=== PATIENT | female | born 1960 | race Caucasian/White ===

== ENCOUNTER → 2016-05-24 | Outpatient (CLI) | payer OTHER ==
[~2016-05-24] MED LIST: BACT800T5 PO; CELE40TA PO; DOXY100C PO; IBUP600T26 PO; PERCOCET PO
[2016-05-24 13:57] LABS: BASO # 0.1 K/mm3 (0.0-0.2); EOS # 0.3 K/mm3 (0.0-0.50); EOS % 4.4 % (0.0-3.0); LYMPH # 2.7 K/mm3 (1.5-4.5); MEAN CORPUSCULAR HEMOGLOBIN 30.7 pg (27.0-33.0); MEAN CORPUSCULAR VOLUME 93.3 fl (80.0-96.0); MONO # 0.4 K/mm3 (0.0-0.8); MONO % 4.7 % (0.0-5.0); NEUTROPHILS % 51.1 % (36.0-66.0); RED CELL DISTRIBUTION WIDTH 11.5 % (11.5-14.5); WHITE BLOOD COUNT 7.9 K/mm3 (4.0-10.0)
[2016-05-24 14:27] LABS: ALBUMIN 3.9 GM/DL (3.2-5.2); ALBUMIN/GLOBULIN RATIO 1.34 (1.00-1.93); ALKALINE PHOSPHATASE 83 U/L (45-117); ALT/SGPT 26 U/L (12-78); ANION GAP 6 MEQ/L (8-16); AST/SGOT 20 U/L (15-37); BILIRUBIN,TOTAL 0.4 MG/DL (0.2-1.0); BLOOD UREA NITROGEN 25 MG/DL (7-18); CALCIUM LEVEL 9.2 MG/DL (8.5-10.1); CARBON DIOXIDE LEVEL 29 MEQ/L (21-32); CHLORIDE LEVEL 109 MEQ/L (98-107); CHOLESTEROL LEVEL 247 MG/DL (<200); CREATININE FOR GFR 0.61 MG/DL (0.55-1.02); GLOMERULAR FILTRATION RATE > 60.0 (>51); GLUCOSE, FASTING 108 MG/DL (70-105); POTASSIUM SERUM 4.5 MEQ/L (3.5-5.1); SODIUM LEVEL 144 MEQ/L (136-145); TOTAL PROTEIN 6.8 GM/DL (6.4-8.2); TRIGLYCERIDES LEVEL 246 MG/DL (<150)
== END ==
LOC: M LAB 13:18
PROVIDERS: ATTEND Physician Assistant Medical
DX: E78.2 Mixed hyperlipidemia (principal); F41.9 Anxiety disorder, unspecified; E55.9 Vitamin D deficiency, unspecified

== ENCOUNTER → 2016-06-29 | Outpatient (CLI) | payer OTHER ==
--- NOTE | 2016-06-30 09:54 | REPMRS ---
Patient History The patient states she had a clinical breast exam in March 2016.Patient is postmenopausal. Family history of unknown cancer in father at age 60, unknown cancer in paternal grandmother, and ovarian cancer in maternal grandmother at age 68. Benign US guided breast biopsy of the right breast, December 19, 2013. Digital Mammo Screening Bilat: June 29, 2016 - Exam #: [id number] Bilateral CC and MLO view(s) were taken. Technologist: Toya Schroeder, Technologist Prior study comparison: February 24, 2015, bilateral digital mammo screening bilat performed at [facility]. December 19, 2013, right breast digital mammo diagnostic unilateral performed at [facility]. FINDINGS: There are scattered fibroglandular densities. There has been no change in the appearance of the mammogram from the prior studies. There is a mild amount of residual fibroglandular tissue which is fairly symmetric. There is no interval development of dominant mass, architectural distortion, or clustered microcalcification suggestive of malignancy. ASSESSMENT: BI-RADS/ACR category 1 mammogram. Negative. Recommendation Routine screening mammogram in 1 year (for women over age 40). This mammogram was interpreted with the aid of an FDA-approved computer-aided dectection system. Electronically Signed By: Will Green MD 06/30/16 [id number]
== END ==
LOC: M RAD 17:11
PROVIDERS: ATTEND Physician Assistant Medical
DX: Z12.31 Encounter for screening mammogram for malignant neoplasm of breast (principal); Z78.0 Asymptomatic menopausal state

== ENCOUNTER 2016-08-13 09:15 | Emergency (ER) | payer OTHER ==
[~2016-08-13] VITALS: Ht 177.8 cm; Wt 90.3 kg
[2016-08-13 09:16] VITALS: BP 167/81
[2016-08-13] MEDS ORDERED: BUSP5TA PO (09:22)
[2016-08-13] MEDS ORDERED: ULTR50TA PO (10:24)
[2016-08-13] MEDS ORDERED: PRED20TA PO (10:24)
== END 2016-08-13 10:35 | disposition home or self-care (01) ==
LOC: M ED 10:10
DX: M54.16 Radiculopathy, lumbar region (principal); M54.31 Sciatica, right side; G43.909 Migraine, unspecified, not intractable, without status migrainosus; F17.200 Nicotine dependence, unspecified, uncomplicated; Z79.899 Other long term (current) drug therapy

== ENCOUNTER → 2016-08-25 | Outpatient (CLI) | payer OTHER ==
[~2016-08-25] MED LIST changes: +BUSP5TA PO; +PRED20TA PO; +ULTR50TA PO
[2016-08-25 13:03] LABS: BASO # 0.1 K/mm3 (0.0-0.2); BASO % 1.3 % (0.0-1.0); EOS # 0.3 K/mm3 (0.0-0.50); EOS % 4.2 % (0.0-3.0); LYMPH # 2.8 K/mm3 (1.5-4.5); LYMPH % 35.9 % (24.0-44.0); MEAN CORPUSCULAR HEMOGLOBIN 32.5 pg (27.0-33.0); MEAN CORPUSCULAR HGB CONC 34.9 g/dl (32.0-36.5); MEAN CORPUSCULAR VOLUME 93.3 fl (80.0-96.0); MONO # 0.3 K/mm3 (0.0-0.8); MONO % 4.6 % (0.0-5.0); NEUTROPHILS # 3.4 K/mm3 (1.8-7.7); NEUTROPHILS % 49.7 % (36.0-66.0); RED CELL DISTRIBUTION WIDTH 12.1 % (11.5-14.5); WHITE BLOOD COUNT 6.9 K/mm3 (4.0-10.0)
[2016-08-25 13:35] LABS: VITAMIN B12 LEVEL 470 PG/ML
[2016-08-25 13:36] LABS: FOLATE 17.3 NG/ML
[2016-08-25 13:55] LABS: ALBUMIN/GLOBULIN RATIO 1.33 (1.00-1.93); ALKALINE PHOSPHATASE 87 U/L (45-117); ALT/SGPT 28 U/L (12-78); ANION GAP 4 MEQ/L (8-16); AST/SGOT 19 U/L (15-37); BILIRUBIN,TOTAL 0.5 MG/DL (0.2-1.0); BLOOD UREA NITROGEN 26 MG/DL (7-18); CALCIUM LEVEL 9.3 MG/DL (8.5-10.1); CARBON DIOXIDE LEVEL 30 MEQ/L (21-32); CHLORIDE LEVEL 110 MEQ/L (98-107); CREATININE FOR GFR 0.68 MG/DL (0.55-1.02); FERRITIN 49 NG/ML (8-252); GLOMERULAR FILTRATION RATE > 60.0 (>51); GLUCOSE, FASTING 112 MG/DL (70-105); SODIUM LEVEL 144 MEQ/L (136-145)
[2016-08-26 11:01] LABS: ALBUMIN 4.42 GM/DL (3.29-5.55); ALBUMIN % 63.1 % (55.8-66.1); GAMMA GLOBULIN % 11.3 % (11.1-18.8)
[2016-08-27 00:07] LABS: Lyme Disease IgG/IgM Antibodie <0.91 ISR (0.00-0.90); Lyme Disease IgM Ab Quantitati <0.80 index (0.00-0.79)
== END ==
LOC: M RAD 10:36 → M LAB 10:36
PROVIDERS: ATTEND Physician Assistant Medical
DX: R42 Dizziness and giddiness (principal); M62.81 Muscle weakness (generalized)

== ENCOUNTER 2016-10-06 09:20 | Emergency (ER) | payer OTHER ==
[~2016-10-06] VITALS: Ht 177.8 cm; Wt 93.3 kg
[2016-10-06 09:20] VITALS: BP 122/71
[~2016-10-06 09:20] MED LIST changes: +IBUP-1022 PO; -IBUP600T26 PO; -ULTR50TA PO; +ULTR50TA8 PO
[2016-10-06] MEDS ORDERED: TRAM50TA2 PO (09:58)
[2016-10-06] MEDS ORDERED: traMADol 50 MG TAB PO ONE (10:00)
== END 2016-10-06 10:17 | disposition home or self-care (01) ==
LOC: M ED 09:20
DX: G89.29 Other chronic pain (principal); F32.9 Major depressive disorder, single episode, unspecified; F41.9 Anxiety disorder, unspecified; F17.200 Nicotine dependence, unspecified, uncomplicated; Z79.899 Other long term (current) drug therapy

== ENCOUNTER 2016-12-27 10:27 | Emergency (ER) | payer OTHER ==
[~2016-12-27] VITALS: Ht 177.8 cm; Wt 93.2 kg
[~2016-12-27 10:27] MED LIST changes: +TRAM50TA2 PO
[2016-12-27] MEDS ORDERED: GABA-282 (10:32)
[2016-12-27] MEDS ORDERED: AMIT25TA (10:32)
[2016-12-27] MEDS ORDERED: MELO15TA4 (10:32)
[2016-12-27] MEDS ORDERED: TRAM50TA2 PO (12:07)
[2016-12-27] MEDS ORDERED: traMADol 50 MG TAB PO ONE (12:15)
[2016-12-27] MEDS ORDERED: CYCLOBENZAPRINE 10 MG TAB PO ONE (12:15)
[2016-12-27 12:48] VITALS: BP 148/87
== END 2016-12-27 12:38 | disposition home or self-care (01) ==
LOC: M ED 10:27
DX: M54.31 Sciatica, right side (principal); M54.32 Sciatica, left side; G43.909 Migraine, unspecified, not intractable, without status migrainosus; E78.5 Hyperlipidemia, unspecified; D41.9 Neoplasm of uncertain behavior of unspecified urinary organ; D32.9 Benign neoplasm of meninges, unspecified; F17.200 Nicotine dependence, unspecified, uncomplicated; Z79.899 Other long term (current) drug therapy

== ENCOUNTER → 2017-02-01 | Outpatient (CLI) | payer OTHER ==
[~2017-02-01] MED LIST changes: +AMIT25TA; +GABA-282; +GASTROGRAFIN SOLUTION 30ML (Q9963) As Ordered ONE; +ISOVUE-370 76% 100ML VIAL (Q9967) As Ordered ONE; +MELO15TA4
--- NOTE | 2017-02-01 16:39 | REP ---
Clinical: Generalized abdominal pain. Comparison: 08/18/2015. Technique: Axial contrast enhanced images from the lung bases to the pubic symphysis using oral (per protocol) and 100 ml Isovue 370 intravenous contrast material with coronal and sagittal re-formations. Comparison: 08/18/2015. Findings: Lung bases demonstrate minimal right basilar fibroatelectatic and dependent changes. Liver, spleen, pancreas, gallbladder, bilateral adrenal glands and kidneys are normal. Prominent soft tissue at the gastroesophageal junction extending into the cardia of the stomach is nonspecific. The enteric system is without obstruction or acute inflammatory process. Scattered sigmoid diverticula noted without acute diverticulitis. Normal terminal ileum and appendix identified in the right lower quadrant. Pelvis demonstrates normal bladder and age-appropriate uterus/adnexa. No pelvic fluid or ascites. No adenopathy. No obvious solitary mass lesion. Atherosclerotic changes of the aorta and vasculature without aneurysm. Surrounding musculoskeletal structures demonstrate advanced degenerative changes at the L4-5 and L5-L1 levels with chronic bilateral spondylolysis and hypertrophic facet changes as well as grade 1 anterolisthesis at L4-5 and grade 1 retrolisthesis at L5-S1. Impression: 1. Mildly prominent soft tissue at the gastroesophageal junction extending into the cardia of the stomach. Endoscopy may be warranted for further investigation. 2. Colonic diverticula without acute diverticulitis. 3. Advanced degenerative changes of the lower lumbar spine. 4. No further acute abdominopelvic pathology appreciated. Signed by Clark Flaherty MD 02/01/2017 04:30 P
--- NOTE | 2017-02-02 08:42 | REP ---
MR LUMBAR SPINE WITHOUT CONTRAST: HISTORY: Back pain. Decreased signal intensity on T2-weighted images is present in the T11-12, T12-L1 and L3-4 through L5-S1 intervertebral discs. The discs are decreased in height. These findings are consistent with disc degeneration. There is no disc bulge or herniation at the L1-2 and L2-3 levels. There is hypertrophy of the posterior articulating facets. The nerves exit the neural foramina without compression. A diffuse disc bulge is present at the L3-4 level. There is hypertrophy of the ligamenta flava and posterior articulating facets. These findings produce minimal central canal stenosis. The L3 nerves exit the neural foramina without compression. A diffuse disc bulge is present at the L4-5 level. There is hypertrophy at the ligamenta flava and posterior articulating facets. There are 7 mm of grade 1 spondylolisthesis of L4 on 5. These findings produce severe central canal stenosis. A small right intraforaminal disc protrusion is present. There is posterolateral displacement of the right L4 nerve distal to the neural foramen. The left L4 nerve exits the neural foramen without compression. A diffuse disc bulge is present at the L5-S1 level. There is minimal compression of the thecal sac. There is hypertrophy of the ligamenta flava and posterior articulating facets. There is compression over the left L5 nerve in the neural foramen. The right L5 nerve exits the neural foramen without compression. The conus medullaris is normal in appearance terminating at the level of the L1-2 intervertebral disc. Tarlov cysts are present at the S2 and S3 levels. Normal signal intensity is present in the lumbar vertebral bodies. IMPRESSION: 1. Minimal central canal stenosis at the L3-4 level secondary to disc bulge, ligamentous and facet hypertrophy. 2. Severe central canal stenosis at the L4-5 level secondary to disc bulge, ligamentous and facet hypertrophy and grade 1 spondylolisthesis. 3. Diffuse disc bulge at the L5-S1 level with minimal thecal sac compression. There is compression of the left L5 nerve in the neural foramen. Signed by Narendra Bourgeois MD 02/02/2017 09:10 A
== END ==
LOC: M RAD 13:12
PROVIDERS: ATTEND Physician Assistant Medical
DX: M51.26 Other intervertebral disc displacement, lumbar region (principal); M48.061 Spinal stenosis, lumbar region without neurogenic claudication; R10.84 Generalized abdominal pain; M62.81 Muscle weakness (generalized)
CPT/HCPCS: 72148; 74177; Q9963; Q9967

== ENCOUNTER → 2017-02-14 | Outpatient (CLI) | payer OTHER ==
[~2017-02-14] MED LIST changes: -GASTROGRAFIN SOLUTION 30ML (Q9963) As Ordered ONE; -ISOVUE-370 76% 100ML VIAL (Q9967) As Ordered ONE
[2017-02-14 10:57] LABS: BASO # 0.1 10^3/uL (0.0-0.2); BASO % 1.2 % (0.0-1.0); EOS # 0.4 10^3/uL (0.0-0.50); EOS % 5.9 % (0.0-3.0); IMMATURE GRANULOCYTE % 0.3 % (0-0); LYMPH # 2.3 10^3/uL (1.5-4.5); LYMPH % 31.6 % (24.0-44.0); MEAN CORPUSCULAR HEMOGLOBIN 31.2 pg (27.0-33.0); MONO # 0.6 10^3/uL (0.0-0.8); MONO % 8.3 % (0.0-5.0); NEUTROPHILS # 3.8 10^3/uL (1.8-7.7); NEUTROPHILS % 52.7 % (36.0-66.0); PLATELET COUNT, AUTOMATED 323 10^3/uL (150-450); RED CELL DISTRIBUTION WIDTH 12.1 % (11.5-14.5); WHITE BLOOD COUNT 7.3 10^3/uL (4.0-10.0)
[2017-02-14 11:35] LABS: ALBUMIN 3.9 GM/DL (3.2-5.2); ALBUMIN/GLOBULIN RATIO 1.26 (1.00-1.93); ALKALINE PHOSPHATASE 106 U/L (45-117); ALT/SGPT 21 U/L (12-78); ANION GAP 7 MEQ/L (8-16); AST/SGOT 16 U/L (7-37); BILIRUBIN,TOTAL 0.6 MG/DL (0.2-1.0); BLOOD UREA NITROGEN 25 MG/DL (7-18); CALCIUM LEVEL 9.2 MG/DL (8.5-10.1); CARBON DIOXIDE LEVEL 25 MEQ/L (21-32); CHLORIDE LEVEL 113 MEQ/L (98-107); CHOLESTEROL LEVEL 261 MG/DL (<200); CREATININE FOR GFR 0.67 MG/DL (0.55-1.02); GLOMERULAR FILTRATION RATE > 60.0 (>51); GLUCOSE, FASTING 83 MG/DL (70-105); POTASSIUM SERUM 3.7 MEQ/L (3.5-5.1); SODIUM LEVEL 145 MEQ/L (136-145); TRIGLYCERIDES LEVEL 99 MG/DL (<150)
[2017-02-14 11:42] LABS: FOLATE 12.1 NG/ML; VITAMIN B12 LEVEL 346 PG/ML
== END ==
LOC: M LAB 10:27
PROVIDERS: ATTEND Physician Assistant Medical
DX: E78.2 Mixed hyperlipidemia (principal); E55.9 Vitamin D deficiency, unspecified; M62.81 Muscle weakness (generalized); G43.709 Chronic migraine without aura, not intractable, without status migrainosus

== ENCOUNTER 2017-04-24 05:44 | Emergency (ER) | payer OTHER ==
[2017-04-24] MEDS ORDERED: ONDANSETRON 4MG/2ML VIAL (J2405) As Ordered (06:28)
[2017-04-24] MEDS: ONDANSETRON 4MG/2ML VIAL (J2405) IV (06:35)
[2017-04-24 06:37] LABS: BASO # 0.1 10^3/uL (0.0-0.2); BASO % 1.1 % (0.0-1.0); EOS # 0.4 10^3/uL (0.0-0.50); EOS % 4.3 % (0.0-3.0); HEMATOCRIT 42.9 % (36.0-47.0); HEMOGLOBIN 14.1 g/dl (12.0-16.0); IMMATURE GRANULOCYTE % 0.5 % (0-3.0); LYMPH % 31.8 % (24.0-44.0); MEAN CORPUSCULAR HEMOGLOBIN 30.8 pg (27.0-33.0); MEAN CORPUSCULAR HGB CONC 32.9 g/dl (32.0-36.5); MEAN CORPUSCULAR VOLUME 93.7 fl (80.0-96.0); MONO # 0.7 10^3/uL (0.0-0.8); MONO % 7.7 % (0.0-5.0); NEUTROPHILS # 5.1 10^3/uL (1.8-7.7); NEUTROPHILS % 54.6 % (36.0-66.0); PLATELET COUNT, AUTOMATED 320 10^3/uL (150-450); RED BLOOD COUNT 4.58 10^6/uL (4.00-5.40); RED CELL DISTRIBUTION WIDTH 11.9 % (11.5-14.5); WHITE BLOOD COUNT 9.4 10^3/uL (4.0-10.0)
[2017-04-24 06:52] LABS: ANION GAP 8 MEQ/L (8-16); BLOOD UREA NITROGEN 18 MG/DL (7-18); CALCIUM LEVEL 8.8 MG/DL (8.5-10.1); CARBON DIOXIDE LEVEL 29 MEQ/L (21-32); CHLORIDE LEVEL 107 MEQ/L (98-107); CK-MB VALUE MASS 1.9 NG/ML (0.0-3.6); CPK CREATINE PHOSPHOKINASE 53 U/L (26-192); CREATININE FOR GFR 0.64 MG/DL (0.55-1.30); GLOMERULAR FILTRATION RATE > 60.0 (>51); GLUCOSE, FASTING 110 MG/DL (70-100); MB/CK RELATIVE INDEX 3.58 (< OR =4); POTASSIUM SERUM 3.4 MEQ/L (3.5-5.1); SODIUM LEVEL 144 MEQ/L (136-145); TROPONIN I 0.04 NG/ML (< 0.10)
[2017-04-24] MEDS: METHOCARBAMOL 1,000 MG/10 ML VIAL (J2800) IV (08:33)
[2017-04-24] MEDS: PANTOPRAZOLE 40MG INJ (PROTONIX) (C9113) IV (08:33)
[2017-04-24 08:39] LABS: ALBUMIN 3.8 GM/DL (3.2-5.2); ALBUMIN/GLOBULIN RATIO 1.12 (1.00-1.93); ALKALINE PHOSPHATASE 88 U/L (45-117); ALT/SGPT 26 U/L (12-78); AST/SGOT 16 U/L (7-37); BILIRUBIN,DIRECT 0.1 MG/DL (0.0-0.2); BILIRUBIN,TOTAL 0.5 MG/DL (0.2-1.0); LIPASE 266 U/L (73-393); TOTAL PROTEIN 7.2 GM/DL (6.4-8.2)
== END 2017-04-24 10:05 | disposition home or self-care (01) ==
LOC: M ED 05:44
DX: M51.26 Other intervertebral disc displacement, lumbar region (principal); G89.29 Other chronic pain; R19.09 Other intra-abdominal and pelvic swelling, mass and lump; E78.00 Pure hypercholesterolemia, unspecified; F41.9 Anxiety disorder, unspecified; F17.210 Nicotine dependence, cigarettes, uncomplicated; Z79.899 Other long term (current) drug therapy
CPT/HCPCS: C9113

== ENCOUNTER → 2017-05-05 | Outpatient (CLI) | payer OTHER ==
[2017-05-05 17:07] LABS: BASO # 0.1 10^3/uL (0.0-0.2); BASO % 1.8 % (0.0-1.0); EOS # 0.3 10^3/uL (0.0-0.50); EOS % 3.5 % (0.0-3.0); HEMATOCRIT 39.6 % (36.0-47.0); HEMOGLOBIN 13.2 g/dl (12.0-16.0); IMMATURE GRANULOCYTE % 0.7 % (0-3.0); LYMPH # 3.1 10^3/uL (1.5-4.5); LYMPH % 41.5 % (24.0-44.0); MEAN CORPUSCULAR HEMOGLOBIN 30.6 pg (27.0-33.0); MEAN CORPUSCULAR HGB CONC 33.3 g/dl (32.0-36.5); MEAN CORPUSCULAR VOLUME 91.9 fl (80.0-96.0); MONO # 0.7 10^3/uL (0.0-0.8); MONO % 9.5 % (0.0-5.0); NEUTROPHILS # 3.2 10^3/uL (1.8-7.7); PLATELET COUNT, AUTOMATED 336 10^3/uL (150-450); RED BLOOD COUNT 4.31 10^6/uL (4.00-5.40); RED CELL DISTRIBUTION WIDTH 11.9 % (11.5-14.5); WHITE BLOOD COUNT 7.4 10^3/uL (4.0-10.0)
[2017-05-05 17:56] LABS: ALBUMIN/GLOBULIN RATIO 1.54 (1.00-1.93); ALKALINE PHOSPHATASE 82 U/L (45-117); ALT/SGPT 23 U/L (12-78); ANION GAP 5 MEQ/L (8-16); AST/SGOT 17 U/L (7-37); BILIRUBIN,TOTAL 0.5 MG/DL (0.2-1.0); BLOOD UREA NITROGEN 24 MG/DL (7-18); C REACTIVE PROTEIN QUANTITATIV < 0.30 MG/DL (0.00-0.30); CALCIUM LEVEL 8.5 MG/DL (8.5-10.1); CARBON DIOXIDE LEVEL 27 MEQ/L (21-32); CHLORIDE LEVEL 111 MEQ/L (98-107); CREATININE FOR GFR 0.68 MG/DL (0.55-1.30); GLOMERULAR FILTRATION RATE > 60.0 (>51); GLUCOSE, FASTING 76 MG/DL (70-100); POTASSIUM SERUM 3.7 MEQ/L (3.5-5.1); RHEUMATOID FACTOR QUANT < 10.0 IU/ML (0-15.0); SODIUM LEVEL 143 MEQ/L (136-145); TOTAL PROTEIN 6.6 GM/DL (6.4-8.2)
[2017-05-05 17:58] LABS: ERYTHROCYTE SEDIMENTATION RATE 6 mm/hr (0-30)
[2017-05-09 00:07] LABS: CYCLIC CITRULLINATED PEPTIDE 3 units (0-19)
[2017-05-09 00:07] LABS: ANA (HEP2) Positive (.); Lyme Disease IgG/IgM Antibodie <0.91 ISR (0.00-0.90); Lyme Disease IgM Ab Quantitati <0.80 index (0.00-0.79); SSA SJOGRENS A <0.2 AI (0.0-0.9); SSB SJOGRENS B <0.2 AI (0.0-0.9)
== END ==
LOC: M LAB 15:53
DX: Z79.899 Other long term (current) drug therapy (principal); M35.09 Sjogren syndrome with other organ involvement; M53.83 Other specified dorsopathies, cervicothoracic region
CPT/HCPCS: 73130

== ENCOUNTER → 2017-05-24 | Outpatient (CLI) | payer OTHER ==
[2017-05-24 14:47] LABS: APPEARANCE, URINE HAZY (CLEAR); BACTERIA, URINE AUTO NEGATIVE (NEGATIVE); BILIRUBIN, URINE AUTO 2+ (NEGATIVE); BLOOD, URINE BLOOD NEGATIVE (NEGATIVE); COLOR, URINE AMBER (YELLOW); GLUCOSE, URINE (UA) AUTO NEGATIVE (NEGATIVE); KETONE, URINE AUTO TRACE mg/dL (NEGATIVE); LEUKOCYTE ESTERASE, URINE AUTO 1+ (NEGATIVE); MUCUS, URINE LARGE (NEGATIVE); NITRITE, URINE AUTO NEGATIVE (NEGATIVE); PROTEIN, URINE AUTO 1+ mg/dL (NEGATIVE); RBC, URINE AUTO 3 /HPF (0-3); SPECIFIC GRAVITY URINE AUTO 1.034 (1.002-1.035); SQUAMOUS EPITHELIAL CELL UR AU 3 /HPF (0-6); WBC, URINE AUTO 4 /HPF (0-3)
[2017-05-24 14:59] LABS: COMPLEMENT C4 24.9 MG/DL (10-40)
[2017-05-24 14:59] LABS: COMPLEMENT C3 120 MG/DL (90-180)
== END ==
LOC: M LAB 13:48
DX: M35.9 Systemic involvement of connective tissue, unspecified (principal); Z79.899 Other long term (current) drug therapy
CPT/HCPCS: 86255

== ENCOUNTER 2017-06-26 10:46 | Emergency (ER) | payer OTHER | END 2017-06-26 11:53 | disposition home or self-care (01) | LOC: M ED 10:46 | DX: M54.32 Sciatica, left side (principal); F33.9 Major depressive disorder, recurrent, unspecified; F41.9 Anxiety disorder, unspecified; F17.200 Nicotine dependence, unspecified, uncomplicated; Z87.39 Personal history of other diseases of the musculoskeletal system and connective tissue; Z86.69 Personal history of other diseases of the nervous system and sense organs; Z79.899 Other long term (current) drug therapy | CPT/HCPCS: 99282 ==

== ENCOUNTER 2017-06-29 07:51 | Emergency (ER) | payer OTHER ==
[2017-06-29] MEDS: PERCOCET 5MG/325MG TAB PO (08:50)
== END 2017-06-29 08:59 | disposition home or self-care (01) ==
LOC: M ED 07:51
DX: M54.32 Sciatica, left side (principal); G89.29 Other chronic pain; M54.9 Dorsalgia, unspecified; G43.909 Migraine, unspecified, not intractable, without status migrainosus; K21.9 Gastro-esophageal reflux disease without esophagitis; F41.9 Anxiety disorder, unspecified; F32.9 Major depressive disorder, single episode, unspecified; F17.200 Nicotine dependence, unspecified, uncomplicated; Z79.82 Long term (current) use of aspirin
CPT/HCPCS: 99283

== ENCOUNTER 2017-07-04 07:56 | Emergency (ER) | payer OTHER ==
[2017-07-04] MEDS: traMADol 50 MG TAB PO (09:30)
[2017-07-04] MEDS: ACETAMINOPHEN TAB 650MG DOSE (2X325MG) PO (09:39)
== END 2017-07-04 10:33 | disposition home or self-care (01) ==
LOC: M ED 07:56
DX: M54.42 Lumbago with sciatica, left side (principal); S29.011A Strain of muscle and tendon of front wall of thorax, initial encounter; X58.XXXA Exposure to other specified factors, initial encounter; Y92.89 Other specified places as the place of occurrence of the external cause; M51.9 Unspecified thoracic, thoracolumbar and lumbosacral intervertebral disc disorder; F17.200 Nicotine dependence, unspecified, uncomplicated; Z79.899 Other long term (current) drug therapy
CPT/HCPCS: 99283

== ENCOUNTER 2017-07-18 12:49 | Emergency (ER) | payer OTHER ==
[2017-07-18] MEDS: LORazepam 2 MG/ML VIAL (J2060) IM (14:32)
[2017-07-18] MEDS: KETOROLAC 60 MG/2 ML VIAL (J1885) IM (14:32)
[2017-07-18 15:10] LABS: KETONE, URINE AUTO RFX NEGATIVE (NEGATIVE); LEUKOCYTE ESTERASE UR AUTO RFX 3+ (NEGATIVE); MUCUS, URINE RFX LARGE (NEGATIVE); NITRITE, URINE AUTO RFX POSITIVE (NEGATIVE); RBC, URINE AUTO RFX 64 /HPF (0-3); SPECIFIC GRAVITY UR AUTO RFX 1.027 (1.002-1.035); SQUAM EPITHELIAL CELL UR AURFX 1 /HPF (0-6); WBC, URINE AUTO RFX TNTC /HPF (0-3)
== END 2017-07-18 16:03 | disposition home or self-care (01) ==
LOC: M ED 12:49
DX: M54.32 Sciatica, left side (principal); N39.0 Urinary tract infection, site not specified; G89.29 Other chronic pain; Z79.899 Other long term (current) drug therapy; F17.210 Nicotine dependence, cigarettes, uncomplicated
CPT/HCPCS: J1885

== ENCOUNTER → 2017-07-28 | Outpatient (CLI) | payer OTHER ==
[2017-07-28 10:52] LABS: BASO # 0.2 10^3/uL (0.0-0.2); BASO % 1.5 % (0.0-1.0); EOS # 1.2 10^3/uL (0.0-0.50); EOS % 10.6 % (0.0-3.0); HEMATOCRIT 44.1 % (36.0-47.0); IMMATURE GRANULOCYTE % 0.4 % (0-3.0); LYMPH # 2.8 10^3/uL (1.5-4.5); LYMPH % 25.5 % (24.0-44.0); MEAN CORPUSCULAR HEMOGLOBIN 30.8 pg (27.0-33.0); MEAN CORPUSCULAR VOLUME 90.6 fl (80.0-96.0); MONO # 0.9 10^3/uL (0.0-0.8); MONO % 7.8 % (0.0-5.0); NEUTROPHILS # 5.9 10^3/uL (1.8-7.7); NEUTROPHILS % 54.2 % (36.0-66.0); PLATELET COUNT, AUTOMATED 531 10^3/uL (150-450); RED BLOOD COUNT 4.87 10^6/uL (4.00-5.40); RED CELL DISTRIBUTION WIDTH 12.3 % (11.5-14.5); WHITE BLOOD COUNT 10.9 10^3/uL (4.0-10.0)
[2017-07-28 11:05] LABS: INR 0.92; PROTHROMBIN TIME 12.4 SECONDS (12.4-14.5)
[2017-07-28 11:06] LABS: PARTIAL THROMBOPLASTIN TIME 25.2 SECONDS (26.8-37.9)
[2017-07-28 11:21] LABS: ALBUMIN 3.9 GM/DL (3.2-5.2); ALBUMIN/GLOBULIN RATIO 1.08 (1.00-1.93); ALKALINE PHOSPHATASE 238 U/L (45-117); ALT/SGPT 19 U/L (12-78); ANION GAP 10 MEQ/L (8-16); AST/SGOT 15 U/L (7-37); BILIRUBIN,TOTAL 0.8 MG/DL (0.2-1.0); BLOOD UREA NITROGEN 24 MG/DL (7-18); CALCIUM LEVEL 9.6 MG/DL (8.5-10.1); CARBON DIOXIDE LEVEL 25 MEQ/L (21-32); CHLORIDE LEVEL 109 MEQ/L (98-107); CREATININE FOR GFR 0.81 MG/DL (0.55-1.30); GLOMERULAR FILTRATION RATE > 60.0 (>51); GLUCOSE, FASTING 99 MG/DL (70-100); POTASSIUM SERUM 3.2 MEQ/L (3.5-5.1); SODIUM LEVEL 144 MEQ/L (136-145); TOTAL PROTEIN 7.5 GM/DL (6.4-8.2)
[2017-07-28 11:26] LABS: COLLAGEN EPINEPHRINE > 300.0 SECONDS (74-162)
== END ==
LOC: M LAB 09:54
DX: Z01.818 Encounter for other preprocedural examination (principal); R00.0 Tachycardia, unspecified
CPT/HCPCS: 71046

== ENCOUNTER 2017-08-07 09:55 | Emergency (ER) | payer OTHER ==
[2017-08-07] MEDS: BACLOFEN 10 MG TAB PO (10:41)
[2017-08-07] MEDS: KETOROLAC 60 MG/2 ML VIAL (J1885) IM (10:41)
== END 2017-08-07 11:03 | disposition home or self-care (01) ==
LOC: M ED 09:55
DX: M54.32 Sciatica, left side (principal); I10 Essential (primary) hypertension; E78.5 Hyperlipidemia, unspecified; K21.9 Gastro-esophageal reflux disease without esophagitis; G43.909 Migraine, unspecified, not intractable, without status migrainosus; F41.9 Anxiety disorder, unspecified; F32.9 Major depressive disorder, single episode, unspecified; Z72.0 Tobacco use; F12.10 Cannabis abuse, uncomplicated; Z79.899 Other long term (current) drug therapy
CPT/HCPCS: J1885

== ENCOUNTER 2017-08-22 09:41 | Emergency (ER) | payer OTHER ==
[2017-08-22] MEDS: BACLOFEN 10 MG TAB PO (10:46)
[2017-08-22] MEDS: methylPREDNISolone INJ 125 MG/2 ML VIAL (J2930) IM (10:47)
[2017-08-22] MEDS: MORPHINE 10 MG/ML 1ML VIAL (J2270) IM (10:49)
== END 2017-08-22 11:46 | disposition home or self-care (01) ==
LOC: M ED 09:41
DX: M54.41 Lumbago with sciatica, right side (principal); I10 Essential (primary) hypertension; Z72.0 Tobacco use; Z79.899 Other long term (current) drug therapy
CPT/HCPCS: J2930

== ENCOUNTER 2017-08-24 23:36 | Inpatient (IN) | payer OTHER, MEDICAID ==
[2017-08-25 00:50] LABS: AMPHETAMINES LEVEL URINE NEGATIVE (NEGATIVE); BARBITURATES URINE NEGATIVE (NEGATIVE); BENZODIAZEPINES URINE NEGATIVE (NEGATIVE); CANNABINOIDS URINE POSITIVE (NEGATIVE); COCAINE METABOLITE URINE NEGATIVE (NEGATIVE); METHADONE URINE NEGATIVE (NEGATIVE); OPIATES URINE POSITIVE (NEGATIVE); PHENCYCLIDINE URINE NEGATIVE (NEGATIVE)
[2017-08-25 01:08] LABS: ABG BASE EXCESS -2.4 (-2.0-2.0); ABG HCO3 19.6 MEQ/L (22.0-26.0); ABG O2 SATURATION 96.8 % (95.0-99.0); ABG PARTIAL PRESSURE CO2 26.8 mmHg (35.0-45.0); ABG PARTIAL PRESSURE O2 83.1 mmHg (75.0-100.0); ABG STANDARD HCO3 22.5 MEQ/L (22.0-26.0); ABG TOTAL CO2 20.5 MEQ/L (22.0-29.0); ABG pH (ARTERIAL) 7.483 UNITS (7.350-7.450)
[2017-08-25 01:15] LABS: BEDSIDE GLUCOSE 153 MG/DL (70-105)
[2017-08-25 01:27] LABS: HEMATOCRIT 35.7 % (36.0-47.0); MEAN CORPUSCULAR HEMOGLOBIN 30.9 pg (27.0-33.0); MEAN CORPUSCULAR HGB CONC 35.9 g/dl (32.0-36.5); MEAN CORPUSCULAR VOLUME 86.2 fl (80.0-96.0); PLATELET COUNT, AUTOMATED 156 10^3/uL (150-450); RED BLOOD COUNT 4.14 10^6/uL (4.00-5.40); RED CELL DISTRIBUTION WIDTH 12.4 % (11.5-14.5); WHITE BLOOD COUNT 14.4 10^3/uL (4.0-10.0)
[2017-08-25 01:29] LABS: ADD MANUAL DIFFER YES; DIFF SLIDE NUMBER 100; HEMOGLOBIN 12.8 g/dl (12.0-15.5); POS COUNT POS FLAG; POSITIVE MORPH POS FLAG
[2017-08-25 01:44] LABS: ALBUMIN 2.5 GM/DL (3.2-5.2); ALBUMIN/GLOBULIN RATIO 0.76 (1.00-1.93); ALKALINE PHOSPHATASE 199 U/L (45-117); ALT/SGPT 42 U/L (12-78); ANION GAP 14 MEQ/L (8-16); AST/SGOT 41 U/L (7-37); BILIRUBIN,DIRECT 0.2 MG/DL (0.0-0.2); BILIRUBIN,TOTAL 1.2 MG/DL (0.2-1.0); BLOOD UREA NITROGEN 35 MG/DL (7-18); CALCIUM LEVEL 8.8 MG/DL (8.5-10.1); CARBON DIOXIDE LEVEL 23 MEQ/L (21-32); CHLORIDE LEVEL 106 MEQ/L (98-107); CPK CREATINE PHOSPHOKINASE 173 U/L (26-192); ETHYL ALCOHOL (ETHANOL) 0.003 % (0.000-0.010); FREE THYROXINE INDEX 2.8 % (1.3-4.8); GLOMERULAR FILTRATION RATE > 60.0 (>51); GLUCOSE, FASTING 107 MG/DL (70-100); POTASSIUM SERUM 3.4 MEQ/L (3.5-5.1); SODIUM LEVEL 143 MEQ/L (136-145); T UPTAKE 37 % (30-39); THYROID STIMULATING HORMONE 0.353 uIU/ML (0.358-3.740); THYROXINE (T4) 7.5 UG/DL (4.5-12.0); TOTAL PROTEIN 5.8 GM/DL (6.4-8.2)
[2017-08-25] MEDS: NS 1,000 ML IV ×3 (01:45→13:47)
[2017-08-25 01:49] LABS: AMMONIA 12 uMOL/L (<32)
[2017-08-25 01:54] LABS: BANDS 4 % (< 11); LYMPHOCYTES 3 % (16-52); MONOCYTES 3 % (0-8); NEUTROPHILS 90 % (35-75); PLATELET CLUMPS SMALL AMT; PLATELET ESTIMATE NORMAL (NORMAL); TOXIC GRANULATION 1+; TOXIC VACUOLATION 1+
[2017-08-25 01:55] LABS: SMUDGE CELLS 1+
[2017-08-25 02:16] LABS: APPEARANCE, URINE CLOUDY (CLEAR); BACTERIA, URINE AUTO NEGATIVE (NEGATIVE); BILIRUBIN, URINE AUTO 1+ (NEGATIVE); BLOOD, URINE BLOOD 1+ (NEGATIVE); COLOR, URINE AMBER (YELLOW); GLUCOSE, URINE (UA) AUTO NEGATIVE (NEGATIVE); KETONE, URINE AUTO NEGATIVE (NEGATIVE); LEUKOCYTE ESTERASE, URINE AUTO NEGATIVE (NEGATIVE); MUCUS, URINE SMALL (NEGATIVE); NITRITE, URINE AUTO NEGATIVE (NEGATIVE); PROTEIN, URINE AUTO 2+ mg/dL (NEGATIVE); RBC, URINE AUTO 1 /HPF (0-3); SPECIFIC GRAVITY URINE AUTO 1.028 (1.002-1.035); SQUAMOUS EPITHELIAL CELL UR AU 0 /HPF (0-6); TRANSITIONAL EPITHELIAL AUTO 1 /HPF; WBC, URINE AUTO 28 /HPF (0-3)
[2017-08-25] MEDS ORDERED: PROPOFOL 200 MG/20 ML VIAL As Ordered (02:42)
[2017-08-25] MEDS: SODIUM CHLORIDE 0.9% 1000 ML IV (02:45)
[2017-08-25] MEDS: CEFEPIME HCL 2 GM in D5W MINI-BAG PLUS 50 ML IV ×2 (03:00→14:37)
[2017-08-25 03:03] LABS: MAGNESIUM LEVEL 2.1 MG/DL (1.8-2.4); PHOSPHORUS LEVEL 2.7 MG/DL (2.5-4.9)
[2017-08-25] MEDS ORDERED: VANCOMYCIN 1000 MG/20 ML VIAL (J3370) As Ordered (03:03)
[2017-08-25] MEDS ORDERED: cefTRIAXone SOD 1 GM VIAL (J0696) As Ordered (03:04)
[2017-08-25] MEDS: dexameTHASONE 20 MG/5 ML VIAL (J1100) IV ×3 (03:15→20:31)
[2017-08-25] MEDS ORDERED: cefTRIAXone SOD 2 GM in D5W MINI-BAG PLUS 50 ML IV (03:15)
[2017-08-25] MEDS: PROPOFOL 200 MG/20 ML VIAL IV (03:15)
[2017-08-25] MEDS ORDERED: ACETAMINOPHEN 650 MG SUPP As Ordered (03:28)
[2017-08-25 03:32] LABS: COLOR, CSF YELLOW (COLORLESS); CSF MONONUCLEAR CELL % 5.9 % (0-0); CSF POLYMORPHONUCLEAR CELL % 94.1 % (0-0); CSF RBC 4 10^3/uL (<2); CSF TUBE# CELL CNT TUBE 1; CSF WBC 256 /uL (0-10)
[2017-08-25 03:33] LABS: APPEARANCE, CSF HAZY (CLEAR); CSF DIFF IF INDICATED? YES (NO)
[2017-08-25] MEDS: ACETAMINOPHEN 650 MG SUPP PR (03:45)
[2017-08-25] MEDS: VANCOMYCIN HCL 1,000 MG, VIAL MATE ADAPTER 1 EACH in D5W/0.2% SODIUM CHLORIDE 250 ML IV ×2 (04:00→11:47)
[2017-08-25 05:55] LABS: CPK CREATINE PHOSPHOKINASE 155 U/L (26-192)
[2017-08-25] MEDS ORDERED: PHENYLEPHRINE INJ 10MG/ML VIAL (J2370) As Ordered (09:57)
[2017-08-25] MEDS ORDERED: SUCCINYLCHOLINE INJ 200 MG/10 ML VIAL (J0330) As Ordered (09:58)
[2017-08-25] MEDS ORDERED: PROPOFOL 1,000 MG/100 ML VIAL As Ordered (09:58)
[2017-08-25 10:25] LABS: HEMATOCRIT 33.9 % (36.0-47.0); HEMOGLOBIN 11.9 g/dl (12.0-15.5); MEAN CORPUSCULAR HEMOGLOBIN 30.6 pg (27.0-33.0); MEAN CORPUSCULAR HGB CONC 35.1 g/dl (32.0-36.5); MEAN CORPUSCULAR VOLUME 87.1 fl (80.0-96.0); PLATELET COUNT, AUTOMATED 183 10^3/uL (150-450); RED BLOOD COUNT 3.89 10^6/uL (4.00-5.40); RED CELL DISTRIBUTION WIDTH 12.7 % (11.5-14.5); WHITE BLOOD COUNT 11.1 10^3/uL (4.0-10.0)
[2017-08-25] MEDS: CHLORHEXIDINE ORAL RINSE 0.12%/15ML 120ML BOTTLE MT ×2 (10:28→20:31)
[2017-08-25] MEDS: ACYCLOVIR 500 MG in D5W MINI-BAG PLUS 100 ML IV ×2 (10:32→18:17)
[2017-08-25 10:36] LABS: ADD MANUAL DIFFER YES; DIFF SLIDE NUMBER 175; POSITIVE DIFF POS FLAG; POSITIVE MORPH POS FLAG
[2017-08-25 10:39] LABS: INR 1.04; PROTHROMBIN TIME 13.7 SECONDS (12.4-14.5)
[2017-08-25 10:48] LABS: ANION GAP 10 MEQ/L (8-16); BANDS 5 % (< 11); BLOOD UREA NITROGEN 28 MG/DL (7-18); CALCIUM LEVEL 8.5 MG/DL (8.5-10.1); CARBON DIOXIDE LEVEL 21 MEQ/L (21-32); CHLORIDE LEVEL 112 MEQ/L (98-107); CK-MB VALUE MASS 13.7 NG/ML (<3.6); CPK CREATINE PHOSPHOKINASE 224 U/L (26-192); CREATININE FOR GFR 0.55 MG/DL (0.55-1.30); EOSINOPHILS 1 % (0-5); GLOMERULAR FILTRATION RATE > 60.0 (>51); GLUCOSE, FASTING 87 MG/DL (70-100); LYMPHOCYTES 3 % (16-52); MB/CK RELATIVE INDEX 6.11 (< OR =4); MONOCYTES 3 % (0-8); MYELOCYTES 2 % (0-0); NEUTROPHILS 86 % (35-75); PLATELET ESTIMATE NORMAL (NORMAL); POIKILOCYTOSIS 1+; POTASSIUM SERUM 2.6 MEQ/L (3.5-5.1); SODIUM LEVEL 143 MEQ/L (136-145); TOXIC VACUOLATION 2+; TROPONIN I 0.03 NG/ML (< 0.10)
[2017-08-25] MEDS ORDERED: KCL 10MEQ IN STERILE WATER 100ML As Ordered (10:58)
[2017-08-25 11:08] LABS: MAGNESIUM LEVEL 1.9 MG/DL (1.8-2.4)
[2017-08-25] MEDS: KCL 10MEQ/100ML SWI (KRUN) 10 MEQ in APPROPRIATE DILUENT 1 EA IV ×4 (11:47→14:37)
[2017-08-25] MEDS: SUCCINYLCHOLINE INJ 200 MG/10 ML VIAL (J0330) IV (13:34)
[2017-08-25] MEDS: PROPOFOL 1,000 MG/100 ML VIAL IV (13:45)
[2017-08-25 13:58] LABS: CSF MONONUCLEAR CELL % 7.9 % (0-0); CSF POLYMORPHONUCLEAR CELL % 92.1 % (0-0); CSF RBC < 2 10^3/uL (<2); CSF WBC 204 /uL (0-10)
[2017-08-25 13:59] LABS: APPEARANCE, CSF HAZY (CLEAR); COLOR, CSF YELLOW (COLORLESS); CSF DIFF IF INDICATED? YES (NO); CSF TUBE# CELL CNT TUBE 2
[2017-08-25 14:29] LABS: CSF TUBE# GLU TUBE 4; CSF TUBE# TP TUBE 3; GLUCOSE CSF 65 MG/DL (40-75); TOTAL PROTEIN,CSF 1297.3 MG/DL (15-45)
[2017-08-25] MEDS: metroNIDAZOLE 500 MG in APPROPRIATE DILUENT 1 EA IV ×2 (16:00→17:09)
[2017-08-25 16:55] LABS: ANION GAP 11 MEQ/L (8-16); BLOOD UREA NITROGEN 26 MG/DL (7-18); CALCIUM LEVEL 8.4 MG/DL (8.5-10.1); CARBON DIOXIDE LEVEL 20 MEQ/L (21-32); CHLORIDE LEVEL 112 MEQ/L (98-107); CREATININE FOR GFR 0.44 MG/DL (0.55-1.30); GLOMERULAR FILTRATION RATE > 60.0 (>51); GLUCOSE, FASTING 101 MG/DL (70-100); MAGNESIUM LEVEL 2.1 MG/DL (1.8-2.4); POTASSIUM SERUM 2.9 MEQ/L (3.5-5.1); SODIUM LEVEL 143 MEQ/L (136-145)
[2017-08-25] MEDS: KCL 10MEQ/100ML SWI (KRUN) 100 ML IV ×4 (17:11→22:51)
[2017-08-25 19:59] LABS: VANCOMYCIN LEVEL TROUGH 8.5 UG/ML (10.0-20.0)
[2017-08-25 20:35] LABS: BEDSIDE GLUCOSE 130 MG/DL (70-105)
[2017-08-25] MEDS ORDERED: PROHANCE 279.3MG/ML 5ML VIAL (A9576) As Ordered (21:51)
[2017-08-25] MEDS ORDERED: PROHANCE 279.3MG/ML 15ML VIAL (A9576) As Ordered (21:52)
[2017-08-25] MEDS: VANCOMYCIN HCL 1,000 MG, VIAL MATE ADAPTER 1 EACH in D5W 250 ML IV (22:59)
[2017-08-26] MEDS: VANCOMYCIN HCL 1,000 MG, VIAL MATE ADAPTER 1 EACH in D5W 250 ML IV ×4 (00:12→21:51)
[2017-08-26] MEDS: metroNIDAZOLE 500 MG in APPROPRIATE DILUENT 1 EA IV ×2 (01:09→08:42)
[2017-08-26] MEDS: ACYCLOVIR 500 MG in D5W MINI-BAG PLUS 100 ML IV ×3 (02:20→17:02)
[2017-08-26] MEDS: dexameTHASONE 20 MG/5 ML VIAL (J1100) IV ×4 (02:21→21:52)
[2017-08-26] MEDS: CEFEPIME HCL 2 GM in D5W MINI-BAG PLUS 50 ML IV ×2 (03:14→15:12)
[2017-08-26 03:30] LABS: HEMATOCRIT 34.2 % (36.0-47.0); HEMOGLOBIN 12.4 g/dl (12.0-15.5); MEAN CORPUSCULAR HEMOGLOBIN 30.8 pg (27.0-33.0); MEAN CORPUSCULAR HGB CONC 36.3 g/dl (32.0-36.5); MEAN CORPUSCULAR VOLUME 84.9 fl (80.0-96.0); PLATELET COUNT, AUTOMATED 166 10^3/uL (150-450); RED BLOOD COUNT 4.03 10^6/uL (4.00-5.40); RED CELL DISTRIBUTION WIDTH 12.5 % (11.5-14.5); WHITE BLOOD COUNT 11.7 10^3/uL (4.0-10.0)
[2017-08-26 03:58] LABS: ANION GAP 10 MEQ/L (8-16); BLOOD UREA NITROGEN 22 MG/DL (7-18); CALCIUM LEVEL 9.2 MG/DL (8.5-10.1); CARBON DIOXIDE LEVEL 23 MEQ/L (21-32); CHLORIDE LEVEL 106 MEQ/L (98-107); CREATININE FOR GFR 0.53 MG/DL (0.55-1.30); GLOMERULAR FILTRATION RATE > 60.0 (>51); GLUCOSE, FASTING 136 MG/DL (70-100); POTASSIUM SERUM 2.6 MEQ/L (3.5-5.1); SODIUM LEVEL 139 MEQ/L (136-145)
[2017-08-26] MEDS: KCL 10MEQ/100ML SWI (KRUN) 10 MEQ in APPROPRIATE DILUENT 1 EA IV ×4 (04:52→09:45)
[2017-08-26 05:50] LABS: BEDSIDE GLUCOSE 134 MG/DL (70-105)
[2017-08-26 06:03] LABS: ABG BASE EXCESS 1.4 (-2.0-2.0); ABG HCO3 24.1 MEQ/L (22.0-26.0); ABG O2 SATURATION 97.3 % (95.0-99.0); ABG PARTIAL PRESSURE O2 86.1 mmHg (75.0-100.0); ABG STANDARD HCO3 25.7 MEQ/L (22.0-26.0); ABG pH (ARTERIAL) 7.494 UNITS (7.350-7.450)
[2017-08-26] MEDS: POTASSIUM CHLORIDE 10 MEQ SR TABLET PO ×2 (08:43→18:01)
[2017-08-26] MEDS: CHLORHEXIDINE ORAL RINSE 0.12%/15ML 120ML BOTTLE MT ×2 (09:00→21:00)
[2017-08-26] MEDS ORDERED: KCL 10MEQ/100ML SWI (KRUN) 10 MEQ in APPROPRIATE DILUENT 1 EA IV (09:00)
[2017-08-26 10:40] LABS: THYROID PEROXIDASE ANTIBODY < 28.0 U/ML (<60.0)
[2017-08-26 10:40] LABS: THYROGLOBULIN ANTIBODY 28.9 U/ML (<60.0)
[2017-08-26 14:36] LABS: ALBUMIN 1.9 GM/DL (3.2-5.2); ANION GAP 8 MEQ/L (8-16); BLOOD UREA NITROGEN 24 MG/DL (7-18); CALCIUM LEVEL 9.2 MG/DL (8.5-10.1); CARBON DIOXIDE LEVEL 23 MEQ/L (21-32); CHLORIDE LEVEL 107 MEQ/L (98-107); CREATININE FOR GFR 0.66 MG/DL (0.55-1.30); GLOMERULAR FILTRATION RATE > 60.0 (>51); GLUCOSE, FASTING 148 MG/DL (70-100); PHOSPHORUS LEVEL 1.1 MG/DL (2.5-4.9); POTASSIUM SERUM 3.1 MEQ/L (3.5-5.1); SODIUM LEVEL 138 MEQ/L (136-145)
[2017-08-26] MEDS ORDERED: MEROPENEM INJ 2 GM in NS 100 ML IV (17:30)
[2017-08-26] MEDS: NORCO, ANEXSIA 5/325MG TABLET (HYDROcodone/ACETAMINOPHEN) PO (18:02)
[2017-08-26 18:55] LABS: VANCOMYCIN LEVEL TROUGH 15.9 UG/ML (10.0-20.0)
[2017-08-26] MEDS: LORazepam 2 MG/ML VIAL (J2060) IV (20:08)
[2017-08-26] MEDS ORDERED: PROHANCE 279.3MG/ML 5ML VIAL (A9576) As Ordered (20:36)
[2017-08-26] MEDS ORDERED: PROHANCE 279.3MG/ML 15ML VIAL (A9576) As Ordered (20:36)
[2017-08-26] MEDS: GABAPENTIN 300 MG CAP PO (22:02)
[2017-08-26] MEDS: MEROPENEM INJ 1 GM in APPROPRIATE DILUENT 1 EA IV ×2 (23:03→23:35)
[2017-08-26] MEDS: NS 1,000 ML IV (23:35)
[2017-08-27] MEDS: amLODIPine 10 MG TAB PO (01:01)
[2017-08-27] MEDS: dexameTHASONE 20 MG/5 ML VIAL (J1100) IV ×4 (01:01→20:10)
[2017-08-27] MEDS: VANCOMYCIN HCL 1,000 MG, VIAL MATE ADAPTER 1 EACH in D5W 250 ML IV ×4 (01:01→19:59)
[2017-08-27] MEDS: CEFEPIME HCL 2 GM in D5W MINI-BAG PLUS 50 ML IV ×2 (03:07→14:52)
[2017-08-27 04:11] LABS: HEMATOCRIT 35.3 % (36.0-47.0); HEMOGLOBIN 12.8 g/dl (12.0-15.5); MEAN CORPUSCULAR HEMOGLOBIN 30.8 pg (27.0-33.0); MEAN CORPUSCULAR HGB CONC 36.3 g/dl (32.0-36.5); MEAN CORPUSCULAR VOLUME 85.1 fl (80.0-96.0); PLATELET COUNT, AUTOMATED 152 10^3/uL (150-450); RED BLOOD COUNT 4.15 10^6/uL (4.00-5.40); RED CELL DISTRIBUTION WIDTH 12.8 % (11.5-14.5)
[2017-08-27] MEDS: MEROPENEM INJ 1 GM in APPROPRIATE DILUENT 1 EA IV ×6 (04:12→22:05)
[2017-08-27] MEDS: NORCO, ANEXSIA 5/325MG TABLET (HYDROcodone/ACETAMINOPHEN) PO ×3 (04:16→20:11)
[2017-08-27 04:27] LABS: ANION GAP 9 MEQ/L (8-16); BLOOD UREA NITROGEN 30 MG/DL (7-18); CALCIUM LEVEL 8.6 MG/DL (8.5-10.1); CARBON DIOXIDE LEVEL 23 MEQ/L (21-32); CHLORIDE LEVEL 109 MEQ/L (98-107); CREATININE FOR GFR 0.43 MG/DL (0.55-1.30); GLOMERULAR FILTRATION RATE > 60.0 (>51); GLUCOSE, FASTING 140 MG/DL (70-100); POTASSIUM SERUM 3.4 MEQ/L (3.5-5.1); SODIUM LEVEL 141 MEQ/L (136-145)
[2017-08-27 05:51] LABS: ABG BASE EXCESS 0.7 (-2.0-2.0); ABG HCO3 23.1 MEQ/L (22.0-26.0); ABG O2 SATURATION 93.7 % (95.0-99.0); ABG PARTIAL PRESSURE CO2 30.7 mmHg (35.0-45.0); ABG PARTIAL PRESSURE O2 61.9 mmHg (75.0-100.0); ABG TOTAL CO2 24.1 MEQ/L (22.0-29.0); ABG pH (ARTERIAL) 7.495 UNITS (7.350-7.450)
[2017-08-27] MEDS: CHLORHEXIDINE ORAL RINSE 0.12%/15ML 120ML BOTTLE MT (07:52)
[2017-08-27] MEDS: ATORVASTATIN 20 MG TAB PO (07:53)
[2017-08-27] MEDS: GABAPENTIN 300 MG CAP PO ×3 (07:53→20:11)
[2017-08-27] MEDS: POTASSIUM CHLORIDE 10 MEQ SR TABLET PO (08:24)
[2017-08-27] MEDS: ACETAMINOPHEN TAB 650MG DOSE (2X325MG) PO (12:46)
[2017-08-27] MEDS: LORazepam 2 MG/ML VIAL (J2060) IV ×2 (13:01→16:22)
[2017-08-27] MEDS ORDERED: PROHANCE 279.3MG/ML 5ML VIAL (A9576) As Ordered (17:31)
[2017-08-27] MEDS ORDERED: PROHANCE 279.3MG/ML 15ML VIAL (A9576) As Ordered (17:32)
[2017-08-27] MEDS: NS 1,000 ML IV ×3 (19:14→19:15)
[2017-08-28] MEDS: VANCOMYCIN HCL 1,000 MG, VIAL MATE ADAPTER 1 EACH in D5W 250 ML IV ×4 (00:59→18:40)
[2017-08-28] MEDS: dexameTHASONE 20 MG/5 ML VIAL (J1100) IV (01:00)
[2017-08-28] MEDS: NS 1,000 ML IV (02:48)
[2017-08-28] MEDS: CEFEPIME HCL 2 GM in D5W MINI-BAG PLUS 50 ML IV ×2 (03:18→15:17)
[2017-08-28] MEDS: MEROPENEM INJ 1 GM in APPROPRIATE DILUENT 1 EA IV ×6 (04:16→21:03)
[2017-08-28] MEDS: NORCO, ANEXSIA 5/325MG TABLET (HYDROcodone/ACETAMINOPHEN) PO ×3 (04:25→17:42)
[2017-08-28 05:41] LABS: ABG BASE EXCESS -0.7 (-2.0-2.0); ABG HCO3 21.4 MEQ/L (22.0-26.0); ABG O2 SATURATION 95.1 % (95.0-99.0); ABG PARTIAL PRESSURE CO2 28.3 mmHg (35.0-45.0); ABG PARTIAL PRESSURE O2 66.8 mmHg (75.0-100.0); ABG STANDARD HCO3 23.8 MEQ/L (22.0-26.0); ABG TOTAL CO2 22.3 MEQ/L (22.0-29.0); ABG pH (ARTERIAL) 7.497 UNITS (7.350-7.450)
[2017-08-28 06:57] LABS: ERYTHROCYTE SEDIMENTATION RATE 32 mm/hr (0-30)
[2017-08-28] MEDS ORDERED: POTASSIUM CHLORIDE 10 MEQ SR TABLET PO (08:00)
[2017-08-28] MEDS: ATORVASTATIN 20 MG TAB PO (08:31)
[2017-08-28] MEDS: amLODIPine 10 MG TAB PO (08:32)
[2017-08-28] MEDS: GABAPENTIN 300 MG CAP PO ×3 (08:32→20:12)
[2017-08-28 08:41] LABS: HEMATOCRIT 37.8 % (36.0-47.0); HEMOGLOBIN 13.4 g/dl (12.0-15.5); MEAN CORPUSCULAR HEMOGLOBIN 30.8 pg (27.0-33.0); MEAN CORPUSCULAR HGB CONC 35.4 g/dl (32.0-36.5); MEAN CORPUSCULAR VOLUME 86.9 fl (80.0-96.0); PLATELET COUNT, AUTOMATED 156 10^3/uL (150-450); RED BLOOD COUNT 4.35 10^6/uL (4.00-5.40); RED CELL DISTRIBUTION WIDTH 13.5 % (11.5-14.5); WHITE BLOOD COUNT 24.4 10^3/uL (4.0-10.0)
[2017-08-28 08:46] LABS: ANION GAP 8 MEQ/L (8-16); BLOOD UREA NITROGEN 33 MG/DL (7-18); CALCIUM LEVEL 8.2 MG/DL (8.5-10.1); CARBON DIOXIDE LEVEL 24 MEQ/L (21-32); CHLORIDE LEVEL 109 MEQ/L (98-107); CREATININE FOR GFR 0.37 MG/DL (0.55-1.30); GLOMERULAR FILTRATION RATE > 60.0 (>51); GLUCOSE, FASTING 113 MG/DL (70-100); MAGNESIUM LEVEL 2.3 MG/DL (1.8-2.4); SODIUM LEVEL 141 MEQ/L (136-145)
[2017-08-29] MEDS: VANCOMYCIN HCL 1,000 MG, VIAL MATE ADAPTER 1 EACH in D5W 250 ML IV ×3 (00:01→18:36)
[2017-08-29] MEDS: CEFEPIME HCL 2 GM in D5W MINI-BAG PLUS 50 ML IV (03:11)
[2017-08-29] MEDS: MEROPENEM INJ 1 GM in APPROPRIATE DILUENT 1 EA IV ×3 (03:59→13:01)
[2017-08-29 06:36] LABS: HEMOGLOBIN 13.7 g/dl (12.0-15.5); MEAN CORPUSCULAR HEMOGLOBIN 30.7 pg (27.0-33.0); MEAN CORPUSCULAR HGB CONC 35.1 g/dl (32.0-36.5); MEAN CORPUSCULAR VOLUME 87.4 fl (80.0-96.0); PLATELET COUNT, AUTOMATED 183 10^3/uL (150-450); RED BLOOD COUNT 4.46 10^6/uL (4.00-5.40); RED CELL DISTRIBUTION WIDTH 13.5 % (11.5-14.5); WHITE BLOOD COUNT 24.8 10^3/uL (4.0-10.0)
[2017-08-29] MEDS: NORCO, ANEXSIA 5/325MG TABLET (HYDROcodone/ACETAMINOPHEN) PO ×5 (06:36→19:18)
[2017-08-29 06:50] LABS: ANION GAP 5 MEQ/L (8-16); BLOOD UREA NITROGEN 24 MG/DL (7-18); C REACTIVE PROTEIN QUANTITATIV 4.91 MG/DL (0.00-0.30); CALCIUM LEVEL 8.5 MG/DL (8.5-10.1); CARBON DIOXIDE LEVEL 29 MEQ/L (21-32); CHLORIDE LEVEL 105 MEQ/L (98-107); CREATININE FOR GFR 0.49 MG/DL (0.55-1.30); GLOMERULAR FILTRATION RATE > 60.0 (>51); GLUCOSE, FASTING 94 MG/DL (70-100); POTASSIUM SERUM 3.7 MEQ/L (3.5-5.1); SODIUM LEVEL 139 MEQ/L (136-145); VANCOMYCIN LEVEL TROUGH 24.7 UG/ML (10.0-20.0)
[2017-08-29] MEDS: GABAPENTIN 300 MG CAP PO ×3 (09:13→20:28)
[2017-08-29] MEDS: ATORVASTATIN 20 MG TAB PO (09:13)
[2017-08-29] MEDS: amLODIPine 10 MG TAB PO (09:13)
[2017-08-29] MEDS: ACETAMINOPHEN TAB 650MG DOSE (2X325MG) PO ×2 (09:19→20:41)
[2017-08-29] MEDS ORDERED: BACLOFEN 10 MG TAB PO (11:00)
[2017-08-29] MEDS: CitaloPRAM (CeleXA) 20 MG TAB PO (11:25)
[2017-08-29] MEDS: CYCLOBENZAPRINE 10 MG TAB PO ×2 (11:25→20:28)
[2017-08-29] MEDS: LACTOBACILLUS ACIDOPHILUS CAP (BACID) PO ×2 (11:26→18:35)
[2017-08-29] MEDS: HEPARIN SOD (PORCINE) 5000 UNITS/ML VIAL SQ ×2 (13:00→20:29)
[2017-08-29] MEDS: SODIUM CHLORIDE 0.9% INJ 10 ML SYR IV ×2 (14:55→18:36)
[2017-08-30] MEDS: NORCO, ANEXSIA 5/325MG TABLET (HYDROcodone/ACETAMINOPHEN) PO ×4 (01:34→22:38)
[2017-08-30] MEDS: VANCOMYCIN HCL 1,000 MG, VIAL MATE ADAPTER 1 EACH in D5W 250 ML IV ×3 (03:21→18:39)
[2017-08-30] MEDS: SODIUM CHLORIDE 0.9% INJ 10 ML SYR IV ×4 (05:00→21:04)
[2017-08-30] MEDS: HEPARIN SOD (PORCINE) 5000 UNITS/ML VIAL SQ ×3 (05:52→21:03)
[2017-08-30 06:15] LABS: HEMATOCRIT 36.2 % (36.0-47.0); HEMOGLOBIN 12.1 g/dl (12.0-15.5); MEAN CORPUSCULAR HEMOGLOBIN 30.3 pg (27.0-33.0); MEAN CORPUSCULAR HGB CONC 33.4 g/dl (32.0-36.5); MEAN CORPUSCULAR VOLUME 90.5 fl (80.0-96.0); PLATELET COUNT, AUTOMATED 188 10^3/uL (150-450); RED CELL DISTRIBUTION WIDTH 13.4 % (11.5-14.5); WHITE BLOOD COUNT 26.1 10^3/uL (4.0-10.0)
[2017-08-30 06:34] LABS: ANION GAP 7 MEQ/L (8-16); BLOOD UREA NITROGEN 23 MG/DL (7-18); CALCIUM LEVEL 7.7 MG/DL (8.5-10.1); CARBON DIOXIDE LEVEL 32 MEQ/L (21-32); CHLORIDE LEVEL 103 MEQ/L (98-107); CREATININE FOR GFR 0.35 MG/DL (0.55-1.30); GLOMERULAR FILTRATION RATE > 60.0 (>51); GLUCOSE, FASTING 84 MG/DL (70-100); POTASSIUM SERUM 3.9 MEQ/L (3.5-5.1); SODIUM LEVEL 142 MEQ/L (136-145)
[2017-08-30] MEDS: CYCLOBENZAPRINE 10 MG TAB PO ×2 (09:00→21:03)
[2017-08-30] MEDS: amLODIPine 10 MG TAB PO (09:03)
[2017-08-30] MEDS: GABAPENTIN 300 MG CAP PO ×3 (09:04→21:03)
[2017-08-30] MEDS: CitaloPRAM (CeleXA) 20 MG TAB PO (09:04)
[2017-08-30] MEDS: ATORVASTATIN 20 MG TAB PO (09:04)
[2017-08-30] MEDS: LACTOBACILLUS ACIDOPHILUS CAP (BACID) PO ×2 (09:04→18:39)
[2017-08-30 11:29] LABS: VANCOMYCIN LEVEL TROUGH 18.1 UG/ML (10.0-20.0)
[2017-08-30] MEDS ORDERED: LIDOCAINE VISCOUS 2% SOLN 15ML UDC As Ordered (13:37)
[2017-08-30] MEDS ORDERED: MIDAZOLAM INJ 2 MG/2 ML VIAL (J2250) As Ordered ×4 (13:38→14:03)
[2017-08-30] MEDS: CETACAINE SPRAY 5GM As Ordered (13:56)
[2017-08-30] MEDS: MIDAZOLAM INJ 2 MG/2 ML VIAL (J2250) IV ×3 (13:57→14:01)
[2017-08-30] MEDS: ACETAMINOPHEN TAB 650MG DOSE (2X325MG) PO (21:04)
[2017-08-30] MEDS: AMITRIPTYLINE 25 MG TAB PO (22:37)
[2017-08-31] MEDS: VANCOMYCIN HCL 1,000 MG, VIAL MATE ADAPTER 1 EACH in D5W 250 ML IV ×3 (03:22→18:55)
[2017-08-31] MEDS: NORCO, ANEXSIA 5/325MG TABLET (HYDROcodone/ACETAMINOPHEN) PO ×4 (04:51→23:09)
[2017-08-31] MEDS: SODIUM CHLORIDE 0.9% INJ 10 ML SYR IV ×4 (04:52→20:17)
[2017-08-31] MEDS: HEPARIN SOD (PORCINE) 5000 UNITS/ML VIAL SQ ×3 (05:43→21:51)
[2017-08-31 06:03] LABS: HEMATOCRIT 31.7 % (36.0-47.0); HEMOGLOBIN 10.5 g/dl (12.0-15.5); MEAN CORPUSCULAR HEMOGLOBIN 30.1 pg (27.0-33.0); MEAN CORPUSCULAR HGB CONC 33.1 g/dl (32.0-36.5); MEAN CORPUSCULAR VOLUME 90.8 fl (80.0-96.0); PLATELET COUNT, AUTOMATED 229 10^3/uL (150-450); RED BLOOD COUNT 3.49 10^6/uL (4.00-5.40); RED CELL DISTRIBUTION WIDTH 13.6 % (11.5-14.5); WHITE BLOOD COUNT 21.2 10^3/uL (4.0-10.0)
[2017-08-31 06:23] LABS: ANION GAP 7 MEQ/L (8-16); BLOOD UREA NITROGEN 25 MG/DL (7-18); CALCIUM LEVEL 7.6 MG/DL (8.5-10.1); CARBON DIOXIDE LEVEL 32 MEQ/L (21-32); CHLORIDE LEVEL 101 MEQ/L (98-107); CREATININE FOR GFR 0.46 MG/DL (0.55-1.30); GLOMERULAR FILTRATION RATE > 60.0 (>51); GLUCOSE, FASTING 112 MG/DL (70-100); POTASSIUM SERUM 3.5 MEQ/L (3.5-5.1); SODIUM LEVEL 140 MEQ/L (136-145)
[2017-08-31] MEDS: SENOKOT S TAB PO ×2 (09:00→21:51)
[2017-08-31] MEDS: ATORVASTATIN 20 MG TAB PO (09:37)
[2017-08-31] MEDS: CYCLOBENZAPRINE 10 MG TAB PO ×2 (09:48→21:51)
[2017-08-31] MEDS: CitaloPRAM (CeleXA) 20 MG TAB PO (09:48)
[2017-08-31] MEDS: GABAPENTIN 300 MG CAP PO ×3 (09:48→21:51)
[2017-08-31] MEDS: LACTOBACILLUS ACIDOPHILUS CAP (BACID) PO ×2 (09:48→16:59)
[2017-08-31] MEDS: amLODIPine 10 MG TAB PO (09:49)
[2017-08-31] MEDS ORDERED: PROHANCE 279.3MG/ML 5ML VIAL (A9576) As Ordered (14:32)
[2017-08-31] MEDS ORDERED: PROHANCE 279.3MG/ML 15ML VIAL (A9576) As Ordered (14:32)
[2017-08-31 14:47] LABS: ANTI HU ANTIBODY <1:10 titer (.)
[2017-08-31] MEDS: BISACODYL 10 MG SUPP PR (15:34)
[2017-09-02 06:57] LABS: VOLTAGE-GATED POTASSIUM CHANNE SEE SEPARATE REPORT
== END 2017-08-31 23:15 | disposition other institution (70) | DRG 720 ==
LOC: M MSPAV 08-27 18:00 → M ED 23:36 → M ED INP 08-25 02:48 → M ICU 08-25 04:28
PROC: B246ZZ4 Ultrasonography of Right and Left Heart, Transesophageal (ICD-10-PCS; 2017-08-30 13:30)
PROC: 009U3ZX Drainage of Spinal Canal, Percutaneous Approach, Diagnostic (ICD-10-PCS; principal; 2017-08-30 13:49)
PROC: 02HV33Z Insertion of Infusion Device into Superior Vena Cava, Percutaneous Approach (ICD-10-PCS; 2017-08-30 13:49)
DX: A41.02 Sepsis due to Methicillin resistant Staphylococcus aureus (principal); I33.0 Acute and subacute infective endocarditis; G00.3 Staphylococcal meningitis; G93.41 Metabolic encephalopathy; M50.21 Other cervical disc displacement, high cervical region; M50.221 Other cervical disc displacement at C4-C5 level; M51.24 Other intervertebral disc displacement, thoracic region; E66.9 Obesity, unspecified; E78.5 Hyperlipidemia, unspecified; I10 Essential (primary) hypertension; F41.9 Anxiety disorder, unspecified; F32.9 Major depressive disorder, single episode, unspecified; M51.36 Other intervertebral disc degeneration, lumbar region; F17.200 Nicotine dependence, unspecified, uncomplicated; Z79.899 Other long term (current) drug therapy; E87.6 Hypokalemia; M70.22 Olecranon bursitis, left elbow; M46.22 Osteomyelitis of vertebra, cervical region; R65.20 Severe sepsis without septic shock; M50.222 Other cervical disc displacement at C5-C6 level; M50.223 Other cervical disc displacement at C6-C7 level

== ENCOUNTER 2017-09-15 15:09 | Emergency (ER) | payer OTHER | END 2017-09-15 17:00 | disposition left against medical advice (07) | LOC: M ED 15:09 | DX: R44.3 Hallucinations, unspecified (principal); R91.8 Other nonspecific abnormal finding of lung field; J90 Pleural effusion, not elsewhere classified; R00.0 Tachycardia, unspecified; E78.9 Disorder of lipoprotein metabolism, unspecified; M54.9 Dorsalgia, unspecified; F17.200 Nicotine dependence, unspecified, uncomplicated; Z79.899 Other long term (current) drug therapy | CPT/HCPCS: 71046 ==

== ENCOUNTER 2017-09-15 18:25 | Inpatient (IN) | payer OTHER ==
[2017-09-15] MEDS: ACETAMINOPHEN 325 MG TAB PO (20:19)
[2017-09-15] MEDS: NS 500 ML IV (20:20)
[2017-09-15] MEDS: MORPHINE 4 MG/ML 1ML VIAL/SYRINGE (J2270) IV (20:28)
[2017-09-15] MEDS ORDERED: PROHANCE 279.3MG/ML 5ML VIAL (A9576) As Ordered (21:17)
[2017-09-15] MEDS ORDERED: PROHANCE 279.3MG/ML 15ML VIAL (A9576) As Ordered (21:17)
[2017-09-15 22:04] LABS: BASO # 0.1 10^3/uL (0.0-0.2); BASO % 0.4 % (0.0-1.0); EOS # 0.1 10^3/uL (0.0-0.50); EOS % 0.4 % (0.0-3.0); HEMATOCRIT 28.9 % (36.0-47.0); HEMOGLOBIN 9.4 g/dl (12.0-15.5); IMMATURE GRANULOCYTE % 0.7 % (0-3.0); LYMPH # 1.5 10^3/uL (1.5-4.5); LYMPH % 11.2 % (24.0-44.0); MEAN CORPUSCULAR HEMOGLOBIN 29.6 pg (27.0-33.0); MEAN CORPUSCULAR HGB CONC 32.5 g/dl (32.0-36.5); MEAN CORPUSCULAR VOLUME 90.9 fl (80.0-96.0); MONO # 1.3 10^3/uL (0.0-0.8); MONO % 9.9 % (0.0-5.0); NEUTROPHILS # 10.5 10^3/uL (1.8-7.7); NEUTROPHILS % 77.4 % (36.0-66.0); PLATELET COUNT, AUTOMATED 675 10^3/uL (150-450); RED BLOOD COUNT 3.18 10^6/uL (4.00-5.40); RED CELL DISTRIBUTION WIDTH 12.7 % (11.5-14.5); WHITE BLOOD COUNT 13.5 10^3/uL (4.0-10.0)
[2017-09-15 22:34] LABS: ANION GAP 9 MEQ/L (8-16); BLOOD UREA NITROGEN 10 MG/DL (7-18); CARBON DIOXIDE LEVEL 30 MEQ/L (21-32); CHLORIDE LEVEL 104 MEQ/L (98-107); GLOMERULAR FILTRATION RATE > 60.0 (>51); GLUCOSE, FASTING 110 MG/DL (70-100); POTASSIUM SERUM 2.9 MEQ/L (3.5-5.1); SODIUM LEVEL 143 MEQ/L (136-145)
[2017-09-15 22:37] LABS: LACTIC ACID SEPSIS PROTOCOL 1.2 MMOL/L (0.4-2.0)
[2017-09-15] MEDS: POTASSIUM CHLORIDE 10 MEQ SR TABLET PO (23:12)
[2017-09-16] MEDS ORDERED: MEROPENEM INJ 1 GM in APPROPRIATE DILUENT 1 EA IV
[2017-09-16 00:04] LABS: TROPONIN I 0.03 NG/ML (< 0.10)
[2017-09-16] MEDS: POTASSIUM CHLORIDE 10 MEQ SR TABLET PO ×2 (00:29→02:37)
[2017-09-16 00:35] LABS: ERYTHROCYTE SEDIMENTATION RATE 1 mm/hr (0-30)
[2017-09-16 01:16] LABS: ETHYL ALCOHOL (ETHANOL) < 0.003 % (0.000-0.010)
[2017-09-16] MEDS: VANCOMYCIN HCL 1,000 MG, VIAL MATE ADAPTER 1 EACH in D5W 250 ML IV ×3 (02:36→16:37)
[2017-09-16] MEDS: NS 1,000 ML IV ×3 (02:36→18:57)
[2017-09-16] MEDS: GABAPENTIN 300 MG CAP PO ×4 (02:37→22:18)
[2017-09-16] MEDS: MEROPENEM INJ 1 GM in APPROPRIATE DILUENT 1 EA IV ×3 (03:45→17:55)
[2017-09-16] MEDS: PERCOCET 5MG/325MG TAB PO (03:45)
[2017-09-16 06:57] LABS: AMORPHOUS SEDIMENT RFX SMALL (NEGATIVE); KETONE, URINE AUTO RFX TRACE mg/dL (NEGATIVE); LEUKOCYTE ESTERASE UR AUTO RFX NEGATIVE (NEGATIVE); MUCUS, URINE RFX SMALL (NEGATIVE); NITRITE, URINE AUTO RFX NEGATIVE (NEGATIVE); RBC, URINE AUTO RFX 3 /HPF (0-3); SPECIFIC GRAVITY UR AUTO RFX 1.016 (1.002-1.035); SQUAM EPITHELIAL CELL UR AURFX 0 /HPF (0-6); WBC, URINE AUTO RFX 4 /HPF (0-3)
[2017-09-16 07:07] LABS: ANION GAP 7 MEQ/L (8-16); BLOOD UREA NITROGEN 11 MG/DL (7-18); CALCIUM LEVEL 7.7 MG/DL (8.5-10.1); CARBON DIOXIDE LEVEL 30 MEQ/L (21-32); CHLORIDE LEVEL 107 MEQ/L (98-107); CREATININE FOR GFR 0.46 MG/DL (0.55-1.30); GLOMERULAR FILTRATION RATE > 60.0 (>51); GLUCOSE, FASTING 91 MG/DL (70-100); POTASSIUM SERUM 3.6 MEQ/L (3.5-5.1); SODIUM LEVEL 144 MEQ/L (136-145)
[2017-09-16] MEDS: ENOXAPARIN 40 MG/0.4 ML SYRINGE (J1650) SC (09:20)
[2017-09-16] MEDS: ATORVASTATIN 20 MG TAB PO (09:20)
[2017-09-16] MEDS: ACETAMINOPHEN TAB 650MG DOSE (2X325MG) PO (16:58)
[2017-09-16] MEDS: BISACODYL 10 MG SUPP PR (17:24)
[2017-09-16] MEDS: MORPHINE 4 MG/ML 1ML VIAL/SYRINGE (J2270) IV ×2 (17:24→22:19)
[2017-09-17] MEDS: VANCOMYCIN HCL 1,000 MG, VIAL MATE ADAPTER 1 EACH in D5W 250 ML IV ×3 (01:10→22:48)
[2017-09-17] MEDS: MEROPENEM INJ 1 GM in APPROPRIATE DILUENT 1 EA IV ×3 (02:33→19:52)
[2017-09-17] MEDS: MORPHINE 4 MG/ML 1ML VIAL/SYRINGE (J2270) IV ×3 (03:59→16:35)
[2017-09-17] MEDS ORDERED: SODIUM CHLORIDE 0.9% INJ 10 ML SYR IV (04:45)
[2017-09-17] MEDS: SODIUM CHLORIDE 0.9% INJ 10 ML SYR IV ×2 (06:00→18:00)
[2017-09-17] MEDS: KETOROLAC 30 MG/ML VIAL (J1885) IV (06:20)
[2017-09-17 06:33] LABS: HEMATOCRIT 28.9 % (36.0-47.0); HEMOGLOBIN 9.4 g/dl (12.0-15.5); MEAN CORPUSCULAR HEMOGLOBIN 29.5 pg (27.0-33.0); MEAN CORPUSCULAR HGB CONC 32.5 g/dl (32.0-36.5); MEAN CORPUSCULAR VOLUME 90.6 fl (80.0-96.0); PLATELET COUNT, AUTOMATED 722 10^3/uL (150-450); RED BLOOD COUNT 3.19 10^6/uL (4.00-5.40); WHITE BLOOD COUNT 13.1 10^3/uL (4.0-10.0)
[2017-09-17 06:48] LABS: ANION GAP 9 MEQ/L (8-16); BLOOD UREA NITROGEN 8 MG/DL (7-18); CARBON DIOXIDE LEVEL 29 MEQ/L (21-32); CHLORIDE LEVEL 106 MEQ/L (98-107); CREATININE FOR GFR 0.41 MG/DL (0.55-1.30); GLOMERULAR FILTRATION RATE > 60.0 (>51); GLUCOSE, FASTING 89 MG/DL (70-100); POTASSIUM SERUM 3.4 MEQ/L (3.5-5.1); SODIUM LEVEL 144 MEQ/L (136-145)
[2017-09-17 07:57] LABS: C REACTIVE PROTEIN QUANTITATIV 9.76 MG/DL (0.00-0.30)
[2017-09-17] MEDS: POTASSIUM CHLORIDE 10 MEQ SR TABLET PO (08:44)
[2017-09-17] MEDS: BACLOFEN 10 MG TAB PO ×2 (08:44→22:57)
[2017-09-17] MEDS: ATORVASTATIN 20 MG TAB PO (08:44)
[2017-09-17] MEDS: ALPRAZolam 0.5 MG TAB PO ×2 (08:45→15:36)
[2017-09-17] MEDS: ENOXAPARIN 40 MG/0.4 ML SYRINGE (J1650) SC (08:45)
[2017-09-17] MEDS: GABAPENTIN 300 MG CAP PO ×3 (08:45→22:47)
[2017-09-17] MEDS ORDERED: BETHANECHOL 10 MG TAB PO (09:00)
[2017-09-17 09:19] LABS: VANCOMYCIN LEVEL TROUGH 20.6 UG/ML (10.0-20.0)
[2017-09-17] MEDS: amLODIPine 5 MG TAB PO (10:49)
[2017-09-17] MEDS: LISINOPRIL 10 MG TAB PO (10:52)
[2017-09-17] MEDS: PERCOCET 5MG/325MG TAB PO ×2 (11:10→19:53)
[2017-09-17] MEDS: BETHANECHOL 25 MG TAB PO ×3 (12:12→22:46)
[2017-09-17] MEDS: NYSTATIN 100,000 UNITS/GM TOPICAL PWD 15 GM TOP ×2 (12:14→22:47)
[2017-09-17] MEDS: NS 500 ML IV (12:14)
[2017-09-17] MEDS: NS 1,000 ML IV (14:10)
[2017-09-17] MEDS: ENOXAPARIN 100MG/1ML SYRINGE (J1650) SC (16:34)
[2017-09-17] MEDS ORDERED: PROHANCE 279.3MG/ML 15ML VIAL (A9576) As Ordered (18:09)
[2017-09-17] MEDS: AMITRIPTYLINE 25 MG TAB PO (22:57)
[2017-09-17] MEDS ORDERED: DEXTROSE 50% 50 ML SYRINGE IV (23:00)
[2017-09-17] MEDS ORDERED: GLUCOSE 4 GM CHEW TABLET PO (23:00)
[2017-09-17] MEDS ORDERED: GLUCAGON FOR INJ 1 MG VIAL (J1610) SC (23:00)
[2017-09-18] MEDS: dexameTHASONE 4 MG/ML 1ML VIAL (J1100) IV (00:29)
[2017-09-18] MEDS: MEROPENEM INJ 1 GM in APPROPRIATE DILUENT 1 EA IV (02:06)
[2017-09-18] MEDS ORDERED: HumaLOG INSULIN (NovoLOG) PER UNIT SC (07:30)
[2017-09-18] MEDS ORDERED: LISINOPRIL 10 MG TAB PO (09:00)
[2017-09-18] MEDS ORDERED: amLODIPine 5 MG TAB PO (09:00)
== END 2017-09-18 03:18 | disposition short-term general hospital (02) | DRG 347 ==
LOC: M ED INP 09-16 00:06 → M MSPAV 09-16 01:47 → M ED 18:25
DX: M46.42 Discitis, unspecified, cervical region (principal); S32.10XA Unspecified fracture of sacrum, initial encounter for closed fracture; I10 Essential (primary) hypertension; F41.9 Anxiety disorder, unspecified; R00.0 Tachycardia, unspecified; Z79.899 Other long term (current) drug therapy; E87.6 Hypokalemia; F32.9 Major depressive disorder, single episode, unspecified; E78.5 Hyperlipidemia, unspecified; X58.XXXA Exposure to other specified factors, initial encounter; Y92.009 Unspecified place in unspecified non-institutional (private) residence as the place of occurrence of the external cause; M46.44 Discitis, unspecified, thoracic region

== ENCOUNTER → 2017-09-26 | Outpatient (REF) | payer OTHER ==
[2017-09-26 13:33] LABS: BASO # 0.2 10^3/uL (0.0-0.2); BASO % 0.8 % (0.0-1.0); EOS # 0.2 10^3/uL (0.0-0.50); EOS % 0.9 % (0.0-3.0); HEMATOCRIT 32.8 % (36.0-47.0); HEMOGLOBIN 10.5 g/dl (12.0-15.5); IMMATURE GRANULOCYTE % 0.5 % (0-3.0); LYMPH # 1.5 10^3/uL (1.5-4.5); LYMPH % 8.3 % (24.0-44.0); MEAN CORPUSCULAR HEMOGLOBIN 29.6 pg (27.0-33.0); MEAN CORPUSCULAR VOLUME 92.4 fl (80.0-96.0); MONO # 1.2 10^3/uL (0.0-0.8); MONO % 6.4 % (0.0-5.0); NEUTROPHILS # 15.3 10^3/uL (1.8-7.7); NEUTROPHILS % 83.1 % (36.0-66.0); PLATELET COUNT, AUTOMATED 510 10^3/uL (150-450); RED BLOOD COUNT 3.55 10^6/uL (4.00-5.40); WHITE BLOOD COUNT 18.4 10^3/uL (4.0-10.0)
[2017-09-26 14:28] LABS: ERYTHROCYTE SEDIMENTATION RATE 61 mm/hr (0-30)
[2017-09-26 14:33] LABS: ALBUMIN 2.3 GM/DL (3.2-5.2); ALBUMIN/GLOBULIN RATIO 0.53 (1.00-1.93); ALKALINE PHOSPHATASE 190 U/L (45-117); ALT/SGPT 25 U/L (12-78); ANION GAP 13 MEQ/L (8-16); AST/SGOT 24 U/L (7-37); BILIRUBIN,TOTAL 0.3 MG/DL (0.2-1.0); BLOOD UREA NITROGEN 16 MG/DL (7-18); C REACTIVE PROTEIN QUANTITATIV 3.93 MG/DL (0.00-0.30); CALCIUM LEVEL 8.3 MG/DL (8.5-10.1); CARBON DIOXIDE LEVEL 25 MEQ/L (21-32); CHLORIDE LEVEL 106 MEQ/L (98-107); CREATININE FOR GFR 0.57 MG/DL (0.55-1.30); GLOMERULAR FILTRATION RATE > 60.0 (>51); GLUCOSE, FASTING 74 MG/DL (70-100); POTASSIUM SERUM 3.3 MEQ/L (3.5-5.1); SODIUM LEVEL 144 MEQ/L (136-145); TOTAL PROTEIN 6.6 GM/DL (6.4-8.2); VANCOMYCIN RANDOM 26.9 UG/ML
== END ==
LOC: M LAB REF 13:18
DX: I38 Endocarditis, valve unspecified (principal)

== ENCOUNTER → 2017-10-03 | Outpatient (REF) | payer OTHER ==
[2017-10-03 13:15] LABS: BASO # 0.1 10^3/uL (0.0-0.2); BASO % 1.1 % (0.0-1.0); EOS # 0.2 10^3/uL (0.0-0.50); EOS % 1.9 % (0.0-3.0); HEMATOCRIT 33.3 % (36.0-47.0); HEMOGLOBIN 10.9 g/dl (12.0-15.5); IMMATURE GRANULOCYTE % 0.5 % (0-3.0); LYMPH # 2.6 10^3/uL (1.5-4.5); LYMPH % 21.6 % (24.0-44.0); MEAN CORPUSCULAR HEMOGLOBIN 29.7 pg (27.0-33.0); MEAN CORPUSCULAR HGB CONC 32.7 g/dl (32.0-36.5); MEAN CORPUSCULAR VOLUME 90.7 fl (80.0-96.0); MONO % 8.4 % (0.0-5.0); NEUTROPHILS # 8.1 10^3/uL (1.8-7.7); NEUTROPHILS % 66.5 % (36.0-66.0); PLATELET COUNT, AUTOMATED 448 10^3/uL (150-450); RED BLOOD COUNT 3.67 10^6/uL (4.00-5.40); RED CELL DISTRIBUTION WIDTH 13.3 % (11.5-14.5); WHITE BLOOD COUNT 12.1 10^3/uL (4.0-10.0)
[2017-10-03 13:36] LABS: ERYTHROCYTE SEDIMENTATION RATE 56 mm/hr (0-30)
[2017-10-03 13:44] LABS: ALKALINE PHOSPHATASE 183 U/L (45-117); ALT/SGPT 46 U/L (12-78); AST/SGOT 23 U/L (7-37); BILIRUBIN,TOTAL 0.4 MG/DL (0.2-1.0); BLOOD UREA NITROGEN 24 MG/DL (7-18); C REACTIVE PROTEIN QUANTITATIV 0.96 MG/DL (0.00-0.30); CALCIUM LEVEL 8.6 MG/DL (8.5-10.1); CARBON DIOXIDE LEVEL 28 MEQ/L (21-32); CHLORIDE LEVEL 107 MEQ/L (98-107); CREATININE FOR GFR 0.54 MG/DL (0.55-1.30); GLUCOSE, FASTING 88 MG/DL (70-100); TOTAL PROTEIN 6.4 GM/DL (6.4-8.2); VANCOMYCIN RANDOM 24.8 UG/ML
[2017-10-03 14:14] LABS: ALBUMIN 2.6 GM/DL (3.2-5.2); ALBUMIN/GLOBULIN RATIO 0.68 (1.00-1.93); ANION GAP 10 MEQ/L (8-16); SODIUM LEVEL 145 MEQ/L (136-145)
== END ==
LOC: M LAB REF 12:58
DX: I38 Endocarditis, valve unspecified (principal)

== ENCOUNTER → 2017-10-10 | Outpatient (REF) | payer OTHER ==
[2017-10-10 13:59] LABS: BASO # 0.1 10^3/uL (0.0-0.2); BASO % 0.7 % (0.0-1.0); EOS # 0.6 10^3/uL (0.0-0.50); EOS % 4.8 % (0.0-3.0); HEMATOCRIT 33.6 % (36.0-47.0); HEMOGLOBIN 10.7 g/dl (12.0-15.5); IMMATURE GRANULOCYTE % 0.6 % (0-3.0); LYMPH # 2.1 10^3/uL (1.5-4.5); LYMPH % 16.2 % (24.0-44.0); MEAN CORPUSCULAR HEMOGLOBIN 29.6 pg (27.0-33.0); MEAN CORPUSCULAR HGB CONC 31.8 g/dl (32.0-36.5); MEAN CORPUSCULAR VOLUME 92.8 fl (80.0-96.0); MONO # 1.2 10^3/uL (0.0-0.8); NEUTROPHILS # 8.9 10^3/uL (1.8-7.7); NEUTROPHILS % 68.7 % (36.0-66.0); PLATELET COUNT, AUTOMATED 425 10^3/uL (150-450); RED BLOOD COUNT 3.62 10^6/uL (4.00-5.40); RED CELL DISTRIBUTION WIDTH 13.2 % (11.5-14.5)
[2017-10-10 14:02] LABS: ALBUMIN 2.5 GM/DL (3.2-5.2); ALBUMIN/GLOBULIN RATIO 0.63 (1.00-1.93); ALKALINE PHOSPHATASE 179 U/L (45-117); ALT/SGPT 26 U/L (12-78); ANION GAP 6 MEQ/L (8-16); AST/SGOT 16 U/L (7-37); BILIRUBIN,TOTAL 0.2 MG/DL (0.2-1.0); BLOOD UREA NITROGEN 19 MG/DL (7-18); C REACTIVE PROTEIN QUANTITATIV 2.06 MG/DL (0.00-0.30); CALCIUM LEVEL 8.5 MG/DL (8.5-10.1); CARBON DIOXIDE LEVEL 26 MEQ/L (21-32); CHLORIDE LEVEL 113 MEQ/L (98-107); CREATININE FOR GFR 0.59 MG/DL (0.55-1.30); GLOMERULAR FILTRATION RATE > 60.0 (>51); GLUCOSE, FASTING 95 MG/DL (70-100); POTASSIUM SERUM 3.6 MEQ/L (3.5-5.1); SODIUM LEVEL 145 MEQ/L (136-145); TOTAL PROTEIN 6.5 GM/DL (6.4-8.2); VANCOMYCIN RANDOM 31.6 UG/ML
[2017-10-10 14:40] LABS: ERYTHROCYTE SEDIMENTATION RATE 63 mm/hr (0-30)
== END ==
LOC: M LAB REF 12:49
DX: I38 Endocarditis, valve unspecified (principal)

== ENCOUNTER → 2017-10-18 | Outpatient (REF) | payer OTHER ==
[2017-10-18 19:04] LABS: ALBUMIN 2.6 GM/DL (3.2-5.2); ALKALINE PHOSPHATASE 177 U/L (45-117); ALT/SGPT 22 U/L (12-78); ANION GAP 8 MEQ/L (8-16); AST/SGOT 14 U/L (7-37); BILIRUBIN,TOTAL 0.3 MG/DL (0.2-1.0); BLOOD UREA NITROGEN 22 MG/DL (7-18); C REACTIVE PROTEIN QUANTITATIV 1.91 MG/DL (0.00-0.30); CALCIUM LEVEL 8.6 MG/DL (8.5-10.1); CARBON DIOXIDE LEVEL 23 MEQ/L (21-32); CHLORIDE LEVEL 110 MEQ/L (98-107); CREATININE FOR GFR 0.53 MG/DL (0.55-1.30); GLOMERULAR FILTRATION RATE > 60.0 (>51); GLUCOSE, FASTING 113 MG/DL (70-100); POTASSIUM SERUM 3.7 MEQ/L (3.5-5.1); SODIUM LEVEL 141 MEQ/L (136-145); TOTAL PROTEIN 6.3 GM/DL (6.4-8.2); VANCOMYCIN RANDOM 26.7 UG/ML
[2017-10-18 19:19] LABS: BASO # 0.1 10^3/uL (0.0-0.2); BASO % 0.8 % (0.0-1.0); EOS # 0.4 10^3/uL (0.0-0.50); EOS % 3.9 % (0.0-3.0); HEMATOCRIT 30.8 % (36.0-47.0); IMMATURE GRANULOCYTE % 0.3 % (0-3.0); MEAN CORPUSCULAR HEMOGLOBIN 29.5 pg (27.0-33.0); MEAN CORPUSCULAR HGB CONC 32.5 g/dl (32.0-36.5); MEAN CORPUSCULAR VOLUME 90.9 fl (80.0-96.0); MONO # 0.7 10^3/uL (0.0-0.8); NEUTROPHILS # 6.8 10^3/uL (1.8-7.7); PLATELET COUNT, AUTOMATED 409 10^3/uL (150-450); RED BLOOD COUNT 3.39 10^6/uL (4.00-5.40); RED CELL DISTRIBUTION WIDTH 12.8 % (11.5-14.5)
[2017-10-18 21:12] LABS: ERYTHROCYTE SEDIMENTATION RATE 59 mm/hr (0-30)
== END ==
LOC: M LAB REF 16:59
DX: B95.62 Methicillin resistant Staphylococcus aureus infection as the cause of diseases classified elsewhere (principal); I39 Endocarditis and heart valve disorders in diseases classified elsewhere

== ENCOUNTER → 2017-10-24 | Outpatient (REF) | payer OTHER ==
[2017-10-24 14:07] LABS: BASO # 0.1 10^3/uL (0.0-0.2); BASO % 1.1 % (0.0-1.0); EOS # 0.6 10^3/uL (0.0-0.50); EOS % 5.5 % (0.0-3.0); HEMATOCRIT 32.9 % (36.0-47.0); HEMOGLOBIN 10.5 g/dl (12.0-15.5); IMMATURE GRANULOCYTE % 0.6 % (0-3.0); LYMPH # 2.6 10^3/uL (1.5-4.5); LYMPH % 25.9 % (24.0-44.0); MEAN CORPUSCULAR HEMOGLOBIN 29.1 pg (27.0-33.0); MEAN CORPUSCULAR HGB CONC 31.9 g/dl (32.0-36.5); MEAN CORPUSCULAR VOLUME 91.1 fl (80.0-96.0); MONO # 0.9 10^3/uL (0.0-0.8); NEUTROPHILS # 5.9 10^3/uL (1.8-7.7); NEUTROPHILS % 57.9 % (36.0-66.0); PLATELET COUNT, AUTOMATED 472 10^3/uL (150-450); RED BLOOD COUNT 3.61 10^6/uL (4.00-5.40); RED CELL DISTRIBUTION WIDTH 13.2 % (11.5-14.5); WHITE BLOOD COUNT 10.1 10^3/uL (4.0-10.0)
[2017-10-24 14:37] LABS: ALBUMIN 2.7 GM/DL (3.2-5.2); ALBUMIN/GLOBULIN RATIO 0.77 (1.00-1.93); ALKALINE PHOSPHATASE 180 U/L (45-117); ALT/SGPT 19 U/L (12-78); ANION GAP 8 MEQ/L (8-16); AST/SGOT 12 U/L (7-37); BILIRUBIN,TOTAL 0.4 MG/DL (0.2-1.0); BLOOD UREA NITROGEN 18 MG/DL (7-18); C REACTIVE PROTEIN QUANTITATIV 1.78 MG/DL (0.00-0.30); CALCIUM LEVEL 8.9 MG/DL (8.5-10.1); CARBON DIOXIDE LEVEL 26 MEQ/L (21-32); CHLORIDE LEVEL 110 MEQ/L (98-107); CREATININE FOR GFR 0.64 MG/DL (0.55-1.30); GLOMERULAR FILTRATION RATE > 60.0 (>51); GLUCOSE, FASTING 78 MG/DL (70-100); POTASSIUM SERUM 3.4 MEQ/L (3.5-5.1); SODIUM LEVEL 144 MEQ/L (136-145); TOTAL PROTEIN 6.2 GM/DL (6.4-8.2); VANCOMYCIN RANDOM 30.5 UG/ML
[2017-10-24 14:38] LABS: ERYTHROCYTE SEDIMENTATION RATE 52 mm/hr (0-30)
== END ==
LOC: M LAB REF 13:44
DX: I38 Endocarditis, valve unspecified (principal); B95.62 Methicillin resistant Staphylococcus aureus infection as the cause of diseases classified elsewhere
CPT/HCPCS: 80053

== ENCOUNTER → 2017-10-28 | Outpatient (REF) | payer OTHER | LOC: M LAB REF 13:17 | DX: M46.22 Osteomyelitis of vertebra, cervical region (principal) ==

== ENCOUNTER → 2017-10-31 | Outpatient (REF) | payer OTHER ==
[2017-10-31 14:06] LABS: BASO # 0.1 10^3/uL (0.0-0.2); BASO % 0.9 % (0.0-1.0); EOS # 0.7 10^3/uL (0.0-0.50); EOS % 6.3 % (0.0-3.0); HEMATOCRIT 35.1 % (36.0-47.0); HEMOGLOBIN 11.1 g/dl (12.0-15.5); IMMATURE GRANULOCYTE % 0.5 % (0-3.0); LYMPH # 2.6 10^3/uL (1.5-4.5); LYMPH % 24.1 % (24.0-44.0); MEAN CORPUSCULAR HGB CONC 31.6 g/dl (32.0-36.5); MEAN CORPUSCULAR VOLUME 91.6 fl (80.0-96.0); MONO % 9.3 % (0.0-5.0); NEUTROPHILS # 6.4 10^3/uL (1.8-7.7); NEUTROPHILS % 58.9 % (36.0-66.0); PLATELET COUNT, AUTOMATED 487 10^3/uL (150-450); RED BLOOD COUNT 3.83 10^6/uL (4.00-5.40); WHITE BLOOD COUNT 10.9 10^3/uL (4.0-10.0)
[2017-10-31 14:27] LABS: ALBUMIN 2.9 GM/DL (3.2-5.2); ALBUMIN/GLOBULIN RATIO 0.76 (1.00-1.93); ALKALINE PHOSPHATASE 206 U/L (45-117); ALT/SGPT 21 U/L (12-78); ANION GAP 10 MEQ/L (8-16); AST/SGOT 14 U/L (7-37); BILIRUBIN,TOTAL 0.3 MG/DL (0.2-1.0); BLOOD UREA NITROGEN 16 MG/DL (7-18); C REACTIVE PROTEIN QUANTITATIV 2.64 MG/DL (0.00-0.30); CALCIUM LEVEL 9.1 MG/DL (8.5-10.1); CARBON DIOXIDE LEVEL 26 MEQ/L (21-32); CHLORIDE LEVEL 110 MEQ/L (98-107); CREATININE FOR GFR 0.71 MG/DL (0.55-1.30); GLOMERULAR FILTRATION RATE > 60.0 (>51); GLUCOSE, FASTING 99 MG/DL (70-100); POTASSIUM SERUM 3.7 MEQ/L (3.5-5.1); SODIUM LEVEL 146 MEQ/L (136-145); TOTAL PROTEIN 6.7 GM/DL (6.4-8.2)
[2017-10-31 14:57] LABS: ERYTHROCYTE SEDIMENTATION RATE 58 mm/hr (0-30)
== END ==
LOC: M LAB REF 13:26
DX: I38 Endocarditis, valve unspecified (principal); B95.62 Methicillin resistant Staphylococcus aureus infection as the cause of diseases classified elsewhere

== ENCOUNTER 2017-11-05 10:31 | Emergency (ER) | payer OTHER ==
[2017-11-05] MEDS: NS 1,000 ML IV (13:02)
[2017-11-05] MEDS: HYDROMORPHONE HCL 0.5 MG/ 0.5 ML SYRINGE (J1170 PER 1) IV ×3 (13:03→18:01)
[2017-11-05 13:06] LABS: BASO # 0.1 10^3/uL (0.0-0.2); BASO % 1.5 % (0.0-1.0); EOS # 0.7 10^3/uL (0.0-0.50); EOS % 7.6 % (0.0-3.0); HEMATOCRIT 35.5 % (36.0-47.0); HEMOGLOBIN 11.2 g/dl (12.0-15.5); IMMATURE GRANULOCYTE % 0.3 % (0-3.0); LYMPH # 2.2 10^3/uL (1.5-4.5); MEAN CORPUSCULAR HEMOGLOBIN 28.7 pg (27.0-33.0); MEAN CORPUSCULAR HGB CONC 31.5 g/dl (32.0-36.5); MONO # 0.9 10^3/uL (0.0-0.8); MONO % 9.8 % (0.0-5.0); NEUTROPHILS % 55.8 % (36.0-66.0); PLATELET COUNT, AUTOMATED 474 10^3/uL (150-450); WHITE BLOOD COUNT 8.9 10^3/uL (4.0-10.0)
[2017-11-05 13:10] LABS: INR 0.92; PROTHROMBIN TIME 12.5 SECONDS (12.1-14.4)
[2017-11-05 13:11] LABS: PARTIAL THROMBOPLASTIN TIME 23.4 SECONDS (25.4-37.6)
[2017-11-05 13:17] LABS: ALBUMIN 2.9 GM/DL (3.2-5.2); ALBUMIN/GLOBULIN RATIO 0.76 (1.00-1.93); ALKALINE PHOSPHATASE 179 U/L (45-117); ALT/SGPT 17 U/L (12-78); ANION GAP 9 MEQ/L (8-16); AST/SGOT 9 U/L (7-37); BILIRUBIN,DIRECT < 0.1 MG/DL (0.0-0.2); BILIRUBIN,TOTAL 0.3 MG/DL (0.2-1.0); BLOOD UREA NITROGEN 15 MG/DL (7-18); C REACTIVE PROTEIN QUANTITATIV 2.01 MG/DL (0.00-0.30); CALCIUM LEVEL 9.1 MG/DL (8.5-10.1); CARBON DIOXIDE LEVEL 23 MEQ/L (21-32); CHLORIDE LEVEL 112 MEQ/L (98-107); CREATININE FOR GFR 0.67 MG/DL (0.55-1.30); GLOMERULAR FILTRATION RATE > 60.0 (>51); GLUCOSE, FASTING 81 MG/DL (70-100); LIPASE 325 U/L (73-393); POTASSIUM SERUM 3.8 MEQ/L (3.5-5.1); SODIUM LEVEL 144 MEQ/L (136-145); TOTAL PROTEIN 6.7 GM/DL (6.4-8.2)
== END 2017-11-05 18:23 | disposition left against medical advice (07) ==
LOC: M ED 10:31
DX: M54.9 Dorsalgia, unspecified (principal); M45.2 Ankylosing spondylitis of cervical region; Z53.21 Procedure and treatment not carried out due to patient leaving prior to being seen by health care provider; I10 Essential (primary) hypertension; I33.0 Acute and subacute infective endocarditis; Z72.0 Tobacco use; Z79.899 Other long term (current) drug therapy; Z79.891 Long term (current) use of opiate analgesic
CPT/HCPCS: J1170

== ENCOUNTER 2017-11-11 14:37 | Emergency (ER) | payer OTHER ==
[2017-11-11 17:33] LABS: BASO # 0.1 10^3/uL (0.0-0.2); BASO % 1.3 % (0.0-1.0); EOS # 0.5 10^3/uL (0.0-0.50); EOS % 5.2 % (0.0-3.0); HEMATOCRIT 36.3 % (36.0-47.0); HEMOGLOBIN 11.6 g/dl (12.0-15.5); IMMATURE GRANULOCYTE % 0.3 % (0-3.0); LYMPH # 2.4 10^3/uL (1.5-4.5); MEAN CORPUSCULAR HEMOGLOBIN 28.9 pg (27.0-33.0); MEAN CORPUSCULAR VOLUME 90.3 fl (80.0-96.0); MONO # 0.8 10^3/uL (0.0-0.8); MONO % 8.5 % (0.0-5.0); NEUTROPHILS % 60.7 % (36.0-66.0); PLATELET COUNT, AUTOMATED 455 10^3/uL (150-450); RED BLOOD COUNT 4.02 10^6/uL (4.00-5.40); RED CELL DISTRIBUTION WIDTH 12.8 % (11.5-14.5); WHITE BLOOD COUNT 9.8 10^3/uL (4.0-10.0)
[2017-11-11] MEDS: ONDANSETRON 4MG/2ML VIAL (J2405) IV (17:47)
[2017-11-11] MEDS: MORPHINE 4 MG/ML 1ML VIAL/SYRINGE (J2270) IV (17:48)
[2017-11-11 17:55] LABS: ALBUMIN 3.5 GM/DL (3.2-5.2); ALKALINE PHOSPHATASE 179 U/L (45-117); ALT/SGPT 18 U/L (12-78); ANION GAP 9 MEQ/L (8-16); AST/SGOT 15 U/L (7-37); BILIRUBIN,DIRECT < 0.1 MG/DL (0.0-0.2); BILIRUBIN,TOTAL 0.2 MG/DL (0.2-1.0); BLOOD UREA NITROGEN 17 MG/DL (7-18); C REACTIVE PROTEIN QUANTITATIV 1.01 MG/DL (0.00-0.30); CALCIUM LEVEL 9.3 MG/DL (8.5-10.1); CARBON DIOXIDE LEVEL 27 MEQ/L (21-32); CHLORIDE LEVEL 106 MEQ/L (98-107); CREATININE FOR GFR 0.66 MG/DL (0.55-1.30); GLOMERULAR FILTRATION RATE > 60.0 (>51); GLUCOSE, FASTING 85 MG/DL (70-100); POTASSIUM SERUM 3.4 MEQ/L (3.5-5.1); PROTHROMBIN TIME 12.2 SECONDS (12.1-14.4); SODIUM LEVEL 142 MEQ/L (136-145); TOTAL PROTEIN 7.4 GM/DL (6.4-8.2)
[2017-11-11 17:56] LABS: PARTIAL THROMBOPLASTIN TIME 20.1 SECONDS (25.4-37.6)
[2017-11-11 17:56] LABS: LACTIC ACID SEPSIS PROTOCOL 0.9 MMOL/L (0.4-2.0)
[2017-11-11 18:00] LABS: ERYTHROCYTE SEDIMENTATION RATE 60 mm/hr (0-30)
[2017-11-11 18:15] LABS: KETONE, URINE AUTO RFX NEGATIVE (NEGATIVE); LEUKOCYTE ESTERASE UR AUTO RFX TRACE (NEGATIVE); MUCUS, URINE RFX SMALL (NEGATIVE); NITRITE, URINE AUTO RFX NEGATIVE (NEGATIVE); RBC, URINE AUTO RFX 3 /HPF (0-3); SPECIFIC GRAVITY UR AUTO RFX 1.018 (1.002-1.035); SQUAM EPITHELIAL CELL UR AURFX 2 /HPF (0-6); WBC, URINE AUTO RFX 1 /HPF (0-3)
[2017-11-11] MEDS: OXYCODONE/APAP 5MG/325MG(BULK FOR ED) 1 TABLET PO (19:13)
== END 2017-11-11 19:24 | disposition home or self-care (01) ==
LOC: M ED 14:37
DX: M54.9 Dorsalgia, unspecified (principal); G89.29 Other chronic pain; R03.0 Elevated blood-pressure reading, without diagnosis of hypertension; A49.02 Methicillin resistant Staphylococcus aureus infection, unspecified site; F17.200 Nicotine dependence, unspecified, uncomplicated; Z79.899 Other long term (current) drug therapy; Z79.2 Long term (current) use of antibiotics
CPT/HCPCS: J2270

== ENCOUNTER → 2017-11-11 | Outpatient (REF) | payer OTHER | LOC: M LAB REF 14:39 | DX: Z51.81 Encounter for therapeutic drug level monitoring (principal); Z79.2 Long term (current) use of antibiotics; I39 Endocarditis and heart valve disorders in diseases classified elsewhere | CPT/HCPCS: 80202 ==

== ENCOUNTER → 2017-11-14 | Outpatient (REF) | payer OTHER ==
[2017-11-14 19:28] LABS: BASO # 0.1 10^3/uL (0.0-0.2); BASO % 1.3 % (0.0-1.0); EOS # 0.4 10^3/uL (0.0-0.50); EOS % 4.8 % (0.0-3.0); HEMATOCRIT 36.3 % (36.0-47.0); HEMOGLOBIN 11.5 g/dl (12.0-15.5); IMMATURE GRANULOCYTE % 0.3 % (0-3.0); LYMPH # 2.7 10^3/uL (1.5-4.5); LYMPH % 29.9 % (24.0-44.0); MEAN CORPUSCULAR HEMOGLOBIN 29.1 pg (27.0-33.0); MEAN CORPUSCULAR HGB CONC 31.7 g/dl (32.0-36.5); MEAN CORPUSCULAR VOLUME 91.9 fl (80.0-96.0); MONO # 0.8 10^3/uL (0.0-0.8); MONO % 8.5 % (0.0-5.0); NEUTROPHILS # 4.9 10^3/uL (1.8-7.7); NEUTROPHILS % 55.2 % (36.0-66.0); PLATELET COUNT, AUTOMATED 447 10^3/uL (150-450); RED BLOOD COUNT 3.95 10^6/uL (4.00-5.40); RED CELL DISTRIBUTION WIDTH 12.8 % (11.5-14.5); WHITE BLOOD COUNT 8.9 10^3/uL (4.0-10.0)
[2017-11-14 20:26] LABS: ERYTHROCYTE SEDIMENTATION RATE 46 mm/hr (0-30)
[2017-11-14 21:27] LABS: ALBUMIN 3.4 GM/DL (3.2-5.2); ALKALINE PHOSPHATASE 172 U/L (45-117); ALT/SGPT 20 U/L (12-78); ANION GAP 9 MEQ/L (8-16); AST/SGOT 14 U/L (7-37); BILIRUBIN,TOTAL 0.3 MG/DL (0.2-1.0); BLOOD UREA NITROGEN 22 MG/DL (7-18); C REACTIVE PROTEIN QUANTITATIV 0.72 MG/DL (0.00-0.30); CARBON DIOXIDE LEVEL 25 MEQ/L (21-32); CHLORIDE LEVEL 108 MEQ/L (98-107); CREATININE FOR GFR 0.74 MG/DL (0.55-1.30); GLOMERULAR FILTRATION RATE > 60.0 (>51); GLUCOSE, FASTING 102 MG/DL (70-100); POTASSIUM SERUM 3.7 MEQ/L (3.5-5.1); SODIUM LEVEL 142 MEQ/L (136-145); TOTAL PROTEIN 7.3 GM/DL (6.4-8.2); VANCOMYCIN RANDOM 19.3 UG/ML
[2017-11-14 21:51] LABS: ALBUMIN/GLOBULIN RATIO 0.87 (1.00-1.93)
== END ==
LOC: M LAB REF 19:06
DX: Z51.81 Encounter for therapeutic drug level monitoring (principal); Z79.2 Long term (current) use of antibiotics; A49.02 Methicillin resistant Staphylococcus aureus infection, unspecified site; I35.8 Other nonrheumatic aortic valve disorders; M46.22 Osteomyelitis of vertebra, cervical region
CPT/HCPCS: 80053

== ENCOUNTER → 2017-11-21 | Outpatient (REF) | payer OTHER ==
[2017-11-21 15:35] LABS: BASO # 0.1 10^3/uL (0.0-0.2); BASO % 1.1 % (0.0-1.0); EOS # 0.4 10^3/uL (0.0-0.50); EOS % 4.6 % (0.0-3.0); HEMATOCRIT 36.8 % (36.0-47.0); HEMOGLOBIN 11.7 g/dl (12.0-15.5); IMMATURE GRANULOCYTE % 0.4 % (0-3.0); LYMPH # 2.4 10^3/uL (1.5-4.5); LYMPH % 26.3 % (24.0-44.0); MEAN CORPUSCULAR HEMOGLOBIN 29.3 pg (27.0-33.0); MEAN CORPUSCULAR HGB CONC 31.8 g/dl (32.0-36.5); MONO # 0.7 10^3/uL (0.0-0.8); MONO % 8.2 % (0.0-5.0); NEUTROPHILS # 5.3 10^3/uL (1.8-7.7); NEUTROPHILS % 59.4 % (36.0-66.0); PLATELET COUNT, AUTOMATED 453 10^3/uL (150-450); RED CELL DISTRIBUTION WIDTH 13.3 % (11.5-14.5)
[2017-11-21 16:03] LABS: ERYTHROCYTE SEDIMENTATION RATE 45 mm/hr (0-30)
[2017-11-21 16:19] LABS: ALBUMIN 3.4 GM/DL (3.2-5.2); ALBUMIN/GLOBULIN RATIO 0.89 (1.00-1.93); ALKALINE PHOSPHATASE 160 U/L (45-117); ALT/SGPT 20 U/L (12-78); ANION GAP 11 MEQ/L (8-16); AST/SGOT 14 U/L (7-37); BILIRUBIN,TOTAL 0.3 MG/DL (0.2-1.0); BLOOD UREA NITROGEN 22 MG/DL (7-18); C REACTIVE PROTEIN QUANTITATIV 1.19 MG/DL (0.00-0.30); CALCIUM LEVEL 9.3 MG/DL (8.5-10.1); CARBON DIOXIDE LEVEL 26 MEQ/L (21-32); CHLORIDE LEVEL 108 MEQ/L (98-107); CREATININE FOR GFR 0.66 MG/DL (0.55-1.30); GLOMERULAR FILTRATION RATE > 60.0 (>51); GLUCOSE, FASTING 78 MG/DL (70-100); POTASSIUM SERUM 3.3 MEQ/L (3.5-5.1); SODIUM LEVEL 145 MEQ/L (136-145); TOTAL PROTEIN 7.2 GM/DL (6.4-8.2); VANCOMYCIN RANDOM 13.7 UG/ML
== END ==
LOC: M LAB REF 15:22
DX: A49.02 Methicillin resistant Staphylococcus aureus infection, unspecified site (principal); I35.8 Other nonrheumatic aortic valve disorders; Z79.2 Long term (current) use of antibiotics

== ENCOUNTER → 2017-11-23 | Outpatient (CLI) | payer OTHER | LOC: M PAIN 11:00 | DX: M54.2 Cervicalgia (principal); M54.5 Low back pain; M47.816 Spondylosis without myelopathy or radiculopathy, lumbar region; I10 Essential (primary) hypertension; F41.0 Panic disorder [episodic paroxysmal anxiety]; F32.9 Major depressive disorder, single episode, unspecified; F17.210 Nicotine dependence, cigarettes, uncomplicated; Z79.891 Long term (current) use of opiate analgesic; Z79.899 Other long term (current) drug therapy; Z88.8 Allergy status to other drugs, medicaments and biological substances | CPT/HCPCS: G0463 ==

== ENCOUNTER 2017-11-25 12:03 | Emergency (ER) | payer OTHER | END 2017-11-25 15:07 | disposition home or self-care (01) | LOC: M ED 12:03 | DX: G89.29 Other chronic pain (principal); M54.5 Low back pain; I10 Essential (primary) hypertension; G43.909 Migraine, unspecified, not intractable, without status migrainosus; M54.30 Sciatica, unspecified side; K21.9 Gastro-esophageal reflux disease without esophagitis; F32.9 Major depressive disorder, single episode, unspecified; Z87.442 Personal history of urinary calculi; Z72.0 Tobacco use; Z79.899 Other long term (current) drug therapy; Z88.1 Allergy status to other antibiotic agents | CPT/HCPCS: 99283 ==

== ENCOUNTER → 2017-11-28 | Outpatient (REF) | payer OTHER ==
[2017-11-28 16:07] LABS: BASO # 0.1 10^3/uL (0.0-0.2); BASO % 0.9 % (0.0-1.0); EOS # 0.3 10^3/uL (0.0-0.50); EOS % 3.5 % (0.0-3.0); HEMATOCRIT 35.5 % (36.0-47.0); HEMOGLOBIN 11.1 g/dl (12.0-15.5); IMMATURE GRANULOCYTE % 0.2 % (0-3.0); LYMPH # 2.7 10^3/uL (1.5-4.5); LYMPH % 29.8 % (24.0-44.0); MEAN CORPUSCULAR HEMOGLOBIN 28.8 pg (27.0-33.0); MEAN CORPUSCULAR HGB CONC 31.3 g/dl (32.0-36.5); NEUTROPHILS # 4.9 10^3/uL (1.8-7.7); NEUTROPHILS % 54.6 % (36.0-66.0); PLATELET COUNT, AUTOMATED 428 10^3/uL (150-450); RED BLOOD COUNT 3.86 10^6/uL (4.00-5.40); RED CELL DISTRIBUTION WIDTH 13.2 % (11.5-14.5)
[2017-11-28 16:27] LABS: ALBUMIN 3.4 GM/DL (3.2-5.2); ALKALINE PHOSPHATASE 161 U/L (45-117); ALT/SGPT 16 U/L (12-78); ANION GAP 7 MEQ/L (8-16); AST/SGOT 11 U/L (7-37); BILIRUBIN,TOTAL 0.4 MG/DL (0.2-1.0); BLOOD UREA NITROGEN 22 MG/DL (7-18); C REACTIVE PROTEIN QUANTITATIV 0.93 MG/DL (0.00-0.30); CALCIUM LEVEL 9.1 MG/DL (8.5-10.1); CARBON DIOXIDE LEVEL 27 MEQ/L (21-32); CHLORIDE LEVEL 109 MEQ/L (98-107); CREATININE FOR GFR 0.61 MG/DL (0.55-1.30); GLOMERULAR FILTRATION RATE > 60.0 (>51); GLUCOSE, FASTING 76 MG/DL (70-100); POTASSIUM SERUM 4.4 MEQ/L (3.5-5.1); SODIUM LEVEL 143 MEQ/L (136-145); TOTAL PROTEIN 6.8 GM/DL (6.4-8.2); VANCOMYCIN RANDOM 18.5 UG/ML
[2017-11-28 16:33] LABS: ERYTHROCYTE SEDIMENTATION RATE 37 mm/hr (0-30)
== END ==
LOC: M LAB REF 15:29
DX: I38 Endocarditis, valve unspecified (principal)

== ENCOUNTER → 2017-12-05 | Outpatient (REF) | payer OTHER ==
[2017-12-05 18:39] LABS: BASO # 0.1 10^3/uL (0.0-0.2); BASO % 1.2 % (0.0-1.0); EOS # 0.3 10^3/uL (0.0-0.50); EOS % 3.2 % (0.0-3.0); HEMATOCRIT 37.5 % (36.0-47.0); HEMOGLOBIN 12.4 g/dl (12.0-15.5); IMMATURE GRANULOCYTE % 0.3 % (0-3.0); LYMPH # 2.7 10^3/uL (1.5-4.5); LYMPH % 29.1 % (24.0-44.0); MEAN CORPUSCULAR HEMOGLOBIN 29.2 pg (27.0-33.0); MEAN CORPUSCULAR HGB CONC 33.1 g/dl (32.0-36.5); MEAN CORPUSCULAR VOLUME 88.4 fl (80.0-96.0); MONO # 0.8 10^3/uL (0.0-0.8); MONO % 8.2 % (0.0-5.0); NEUTROPHILS # 5.3 10^3/uL (1.8-7.7); PLATELET COUNT, AUTOMATED 461 10^3/uL (150-450); RED BLOOD COUNT 4.24 10^6/uL (4.00-5.40); WHITE BLOOD COUNT 9.2 10^3/uL (4.0-10.0)
[2017-12-05 18:56] LABS: ALBUMIN 3.6 GM/DL (3.2-5.2); ALBUMIN/GLOBULIN RATIO 1.03 (1.00-1.93); ALKALINE PHOSPHATASE 152 U/L (45-117); ALT/SGPT 17 U/L (12-78); ANION GAP 9 MEQ/L (8-16); AST/SGOT 10 U/L (7-37); BILIRUBIN,TOTAL 0.4 MG/DL (0.2-1.0); BLOOD UREA NITROGEN 25 MG/DL (7-18); C REACTIVE PROTEIN QUANTITATIV 0.32 MG/DL (0.00-0.30); CALCIUM LEVEL 9.4 MG/DL (8.5-10.1); CARBON DIOXIDE LEVEL 25 MEQ/L (21-32); CHLORIDE LEVEL 110 MEQ/L (98-107); CREATININE FOR GFR 0.62 MG/DL (0.55-1.30); GLOMERULAR FILTRATION RATE > 60.0 (>51); GLUCOSE, FASTING 102 MG/DL (70-100); POTASSIUM SERUM 3.8 MEQ/L (3.5-5.1); SODIUM LEVEL 144 MEQ/L (136-145); TOTAL PROTEIN 7.1 GM/DL (6.4-8.2); VANCOMYCIN RANDOM 18.4 UG/ML
[2017-12-05 19:58] LABS: ERYTHROCYTE SEDIMENTATION RATE 29 mm/hr (0-30)
== END ==
LOC: M LAB REF 16:49
DX: A49.02 Methicillin resistant Staphylococcus aureus infection, unspecified site (principal); Z79.2 Long term (current) use of antibiotics; I35.8 Other nonrheumatic aortic valve disorders; I39 Endocarditis and heart valve disorders in diseases classified elsewhere

== ENCOUNTER → 2017-12-12 | Outpatient (REF) | payer OTHER ==
[2017-12-12 19:19] LABS: BASO # 0.1 10^3/uL (0.0-0.2); BASO % 1.1 % (0.0-1.0); EOS # 0.2 10^3/uL (0.0-0.50); EOS % 2.7 % (0.0-3.0); HEMATOCRIT 38.7 % (36.0-47.0); HEMOGLOBIN 12.3 g/dl (12.0-15.5); IMMATURE GRANULOCYTE % 0.3 % (0-3.0); LYMPH # 3.1 10^3/uL (1.5-4.5); LYMPH % 34.5 % (24.0-44.0); MEAN CORPUSCULAR HEMOGLOBIN 28.9 pg (27.0-33.0); MEAN CORPUSCULAR HGB CONC 31.8 g/dl (32.0-36.5); MEAN CORPUSCULAR VOLUME 90.8 fl (80.0-96.0); MONO # 0.8 10^3/uL (0.0-0.8); MONO % 8.8 % (0.0-5.0); NEUTROPHILS # 4.7 10^3/uL (1.8-7.7); NEUTROPHILS % 52.6 % (36.0-66.0); PLATELET COUNT, AUTOMATED 418 10^3/uL (150-450); RED BLOOD COUNT 4.26 10^6/uL (4.00-5.40); RED CELL DISTRIBUTION WIDTH 12.9 % (11.5-14.5); WHITE BLOOD COUNT 8.9 10^3/uL (4.0-10.0)
[2017-12-12 19:53] LABS: ALBUMIN 3.8 GM/DL (3.2-5.2); ALBUMIN/GLOBULIN RATIO 1.09 (1.00-1.93); ALKALINE PHOSPHATASE 149 U/L (45-117); ALT/SGPT 17 U/L (12-78); ANION GAP 8 MEQ/L (8-16); AST/SGOT 10 U/L (7-37); BILIRUBIN,TOTAL 0.3 MG/DL (0.2-1.0); BLOOD UREA NITROGEN 25 MG/DL (7-18); C REACTIVE PROTEIN QUANTITATIV 0.44 MG/DL (0.00-0.30); CALCIUM LEVEL 9.4 MG/DL (8.5-10.1); CARBON DIOXIDE LEVEL 25 MEQ/L (21-32); CHLORIDE LEVEL 110 MEQ/L (98-107); GLOMERULAR FILTRATION RATE > 60.0 (>51); GLUCOSE, FASTING 77 MG/DL (70-100); POTASSIUM SERUM 3.8 MEQ/L (3.5-5.1); SODIUM LEVEL 143 MEQ/L (136-145); TOTAL PROTEIN 7.3 GM/DL (6.4-8.2)
[2017-12-12 19:55] LABS: ERYTHROCYTE SEDIMENTATION RATE 24 mm/hr (0-30)
== END ==
LOC: M LAB REF 16:08
DX: A49.02 Methicillin resistant Staphylococcus aureus infection, unspecified site (principal); I35.8 Other nonrheumatic aortic valve disorders; Z79.2 Long term (current) use of antibiotics

== ENCOUNTER 2017-12-15 15:18 | Emergency (ER) | payer OTHER ==
[2017-12-15] MEDS: MORPHINE 4 MG/ML 1ML VIAL/SYRINGE (J2270) IV (17:22)
[2017-12-15 17:27] LABS: HEMATOCRIT 37.1 % (36.0-47.0); HEMOGLOBIN 12.2 g/dl (12.0-15.5); MEAN CORPUSCULAR HEMOGLOBIN 29.5 pg (27.0-33.0); MEAN CORPUSCULAR HGB CONC 32.9 g/dl (32.0-36.5); MEAN CORPUSCULAR VOLUME 89.8 fl (80.0-96.0); PLATELET COUNT, AUTOMATED 399 10^3/uL (150-450); RED BLOOD COUNT 4.13 10^6/uL (4.00-5.40); RED CELL DISTRIBUTION WIDTH 12.8 % (11.5-14.5); WHITE BLOOD COUNT 9.5 10^3/uL (4.0-10.0)
[2017-12-15 17:53] LABS: ANION GAP 8 MEQ/L (8-16); BLOOD UREA NITROGEN 27 MG/DL (7-18); CALCIUM LEVEL 9.5 MG/DL (8.5-10.1); CARBON DIOXIDE LEVEL 25 MEQ/L (21-32); CHLORIDE LEVEL 111 MEQ/L (98-107); CREATININE FOR GFR 0.78 MG/DL (0.55-1.30); ETHYL ALCOHOL (ETHANOL) < 0.003 % (0.000-0.010); GLOMERULAR FILTRATION RATE > 60.0 (>51); GLUCOSE, FASTING 84 MG/DL (70-100); POTASSIUM SERUM 3.9 MEQ/L (3.5-5.1); SODIUM LEVEL 144 MEQ/L (136-145)
[2017-12-15] MEDS: NORCO 5/325MG TABLET (BULK FOR ED) PO (19:04)
== END 2017-12-15 19:10 | disposition home or self-care (01) ==
LOC: M ED 15:18
DX: M54.5 Low back pain (principal); G89.29 Other chronic pain; Z79.899 Other long term (current) drug therapy; F19.10 Other psychoactive substance abuse, uncomplicated; F17.210 Nicotine dependence, cigarettes, uncomplicated
CPT/HCPCS: J2270

== ENCOUNTER → 2017-12-19 | Outpatient (REF) | payer OTHER ==
[2017-12-19 16:45] LABS: BASO # 0.1 10^3/uL (0.0-0.2); BASO % 1.2 % (0.0-1.0); EOS # 0.3 10^3/uL (0.0-0.50); EOS % 3.6 % (0.0-3.0); HEMATOCRIT 37.5 % (36.0-47.0); HEMOGLOBIN 12.3 g/dl (12.0-15.5); IMMATURE GRANULOCYTE % 0.4 % (0-3.0); LYMPH # 2.2 10^3/uL (1.5-4.5); LYMPH % 27.5 % (24.0-44.0); MEAN CORPUSCULAR HEMOGLOBIN 29.5 pg (27.0-33.0); MEAN CORPUSCULAR HGB CONC 32.8 g/dl (32.0-36.5); MEAN CORPUSCULAR VOLUME 89.9 fl (80.0-96.0); MONO # 0.7 10^3/uL (0.0-0.8); NEUTROPHILS # 4.8 10^3/uL (1.8-7.7); NEUTROPHILS % 59.3 % (36.0-66.0); PLATELET COUNT, AUTOMATED 419 10^3/uL (150-450); RED BLOOD COUNT 4.17 10^6/uL (4.00-5.40); RED CELL DISTRIBUTION WIDTH 12.9 % (11.5-14.5); WHITE BLOOD COUNT 8.1 10^3/uL (4.0-10.0)
[2017-12-19 17:08] LABS: ALBUMIN 3.5 GM/DL (3.2-5.2); ALKALINE PHOSPHATASE 164 U/L (45-117); ALT/SGPT 20 U/L (12-78); ANION GAP 7 MEQ/L (8-16); AST/SGOT 15 U/L (7-37); BILIRUBIN,TOTAL 0.4 MG/DL (0.2-1.0); BLOOD UREA NITROGEN 22 MG/DL (7-18); C REACTIVE PROTEIN QUANTITATIV 0.56 MG/DL (0.00-0.30); CALCIUM LEVEL 8.7 MG/DL (8.5-10.1); CARBON DIOXIDE LEVEL 26 MEQ/L (21-32); CHLORIDE LEVEL 110 MEQ/L (98-107); CREATININE FOR GFR 0.74 MG/DL (0.55-1.30); GLOMERULAR FILTRATION RATE > 60.0 (>51); GLUCOSE, FASTING 111 MG/DL (70-100); POTASSIUM SERUM 3.7 MEQ/L (3.5-5.1); SODIUM LEVEL 143 MEQ/L (136-145); VANCOMYCIN RANDOM 17.3 UG/ML
[2017-12-19 18:03] LABS: ERYTHROCYTE SEDIMENTATION RATE 25 mm/hr (0-30)
== END ==
LOC: M LAB REF 15:50
DX: A49.02 Methicillin resistant Staphylococcus aureus infection, unspecified site (principal); I35.8 Other nonrheumatic aortic valve disorders; Z79.2 Long term (current) use of antibiotics

== ENCOUNTER → 2017-12-26 | Outpatient (REF) | payer OTHER ==
[2017-12-26 15:51] LABS: BASO # 0.1 10^3/uL (0.0-0.2); BASO % 1.1 % (0.0-1.0); EOS # 0.4 10^3/uL (0.0-0.50); EOS % 4.2 % (0.0-3.0); HEMATOCRIT 35.9 % (36.0-47.0); HEMOGLOBIN 11.3 g/dl (12.0-15.5); IMMATURE GRANULOCYTE % 0.4 % (0-3.0); LYMPH % 32.6 % (24.0-44.0); MEAN CORPUSCULAR HGB CONC 31.5 g/dl (32.0-36.5); MEAN CORPUSCULAR VOLUME 92.3 fl (80.0-96.0); MONO # 0.8 10^3/uL (0.0-0.8); MONO % 8.3 % (0.0-5.0); NEUTROPHILS # 4.9 10^3/uL (1.8-7.7); NEUTROPHILS % 53.4 % (36.0-66.0); PLATELET COUNT, AUTOMATED 386 10^3/uL (150-450); RED BLOOD COUNT 3.89 10^6/uL (4.00-5.40); RED CELL DISTRIBUTION WIDTH 12.7 % (11.5-14.5); WHITE BLOOD COUNT 9.2 10^3/uL (4.0-10.0)
[2017-12-26 16:01] LABS: ALBUMIN 3.5 GM/DL (3.2-5.2); ALBUMIN/GLOBULIN RATIO 1.09 (1.00-1.93); ALKALINE PHOSPHATASE 137 U/L (45-117); ALT/SGPT 23 U/L (12-78); ANION GAP 5 MEQ/L (8-16); AST/SGOT 12 U/L (7-37); BILIRUBIN,TOTAL 0.3 MG/DL (0.2-1.0); BLOOD UREA NITROGEN 29 MG/DL (7-18); C REACTIVE PROTEIN QUANTITATIV 0.43 MG/DL (0.00-0.30); CARBON DIOXIDE LEVEL 26 MEQ/L (21-32); CHLORIDE LEVEL 112 MEQ/L (98-107); GLOMERULAR FILTRATION RATE > 60.0 (>51); GLUCOSE, FASTING 88 MG/DL (70-100); POTASSIUM SERUM 3.6 MEQ/L (3.5-5.1); SODIUM LEVEL 143 MEQ/L (136-145); TOTAL PROTEIN 6.7 GM/DL (6.4-8.2); VANCOMYCIN RANDOM 13.3 UG/ML
[2017-12-26 16:31] LABS: ERYTHROCYTE SEDIMENTATION RATE 27 mm/hr (0-30)
== END ==
LOC: M LAB REF 15:11
DX: M46.22 Osteomyelitis of vertebra, cervical region (principal)
CPT/HCPCS: 80053

== ENCOUNTER 2018-03-13 12:00 | Emergency (ER) | payer OTHER ==
[~2018-03-13] VITALS: Ht 177.8 cm; Wt 76.4 kg
[~2018-03-13 12:00] MED LIST changes: +ALPR0.5T3 PO; +AMIT25TA PO; +ATOR1TAB21 PO; +BACL10TA2 PO; +BETH10TA3 PO; +CELE10TA PO; +CIPR-249 PO; +CITA40TA4; +CITA40TA4 PO; +CYCL10TA PO; +DULO1CAP3 PO; +EFFE75CA2 PO; +EXCETAB80 PO; -GABA-282; +GABA-843; +GABA-843 PO; +HYDR-3713 PO; +HYDR-4571; +IBUP200T45 PO; +MELO15TA28; -MELO15TA4; +METO-504 PO; +METO25TA4; +NEUR300C PO; +NORCOTAB PO; +OXYC-517 PO; +OXYC1TAB23 PO; +PATIENT COMMENT; +PERC5TAB12 PO; +PROT1TAB2 PO; +PYRI1TAB5 PO; +RIFA300C3 PO; +ROBA500T PO; +TRAM50TA2; +TYLE650T35 PO; +VENL75CA47 PO; +VITA50005 PO; +vancomycin IV
[2018-03-13] MEDS ORDERED: OXYCOD/APAP (12:15)
[2018-03-13] MEDS ORDERED: ROPI0.253 (12:15)
[2018-03-13] MEDS ORDERED: MORPHINE 4 MG/ML 1ML VIAL/SYRINGE (J2270) IV ONE (13:00)
[2018-03-13 13:16] LABS: HEMATOCRIT 37.4 % (36.0-47.0); HEMOGLOBIN 12.4 g/dl (12.0-15.5); MEAN CORPUSCULAR HEMOGLOBIN 29.4 pg (27.0-33.0); MEAN CORPUSCULAR HGB CONC 33.2 g/dl (32.0-36.5); MEAN CORPUSCULAR VOLUME 88.6 fl (80.0-96.0); PLATELET COUNT, AUTOMATED 396 10^3/uL (150-450); RED BLOOD COUNT 4.22 10^6/uL (4.00-5.40); WHITE BLOOD COUNT 8.5 10^3/uL (4.0-10.0)
[2018-03-13 13:42] LABS: BLOOD UREA NITROGEN 26 MG/DL (7-18); CALCIUM LEVEL 9.1 MG/DL (8.5-10.1); CARBON DIOXIDE LEVEL 27 MEQ/L (21-32); CHLORIDE LEVEL 110 MEQ/L (98-107); CREATININE FOR GFR 0.85 MG/DL (0.55-1.30); GLOMERULAR FILTRATION RATE > 60.0 (>51); GLUCOSE, FASTING 93 MG/DL (70-100); POTASSIUM SERUM 3.8 MEQ/L (3.5-5.1); SODIUM LEVEL 142 MEQ/L (136-145)
[2018-03-13 14:06] VITALS: BP 138/75
== END 2018-03-13 14:19 | disposition home or self-care (01) ==
LOC: M ED 12:00
DX: G89.29 Other chronic pain (principal); M54.5 Low back pain; G43.909 Migraine, unspecified, not intractable, without status migrainosus; K21.9 Gastro-esophageal reflux disease without esophagitis; I10 Essential (primary) hypertension; F17.200 Nicotine dependence, unspecified, uncomplicated; E78.00 Pure hypercholesterolemia, unspecified
CPT/HCPCS: 80048; 85027; 96374; 99284; J2270

== ENCOUNTER → 2018-03-20 | Outpatient (REF) | payer OTHER ==
[~2018-03-20] MED LIST changes: +OXYCOD/APAP; +ROPI0.253
[2018-03-20 18:20] LABS: BASO # 0.1 10^3/uL (0.0-0.2); BASO % 1.1 % (0.0-1.0); EOS # 0.5 10^3/uL (0.0-0.50); EOS % 5.6 % (0.0-3.0); HEMATOCRIT 35.1 % (36.0-47.0); HEMOGLOBIN 11.4 g/dl (12.0-15.5); LYMPH # 3.1 10^3/uL (1.5-4.5); LYMPH % 37.3 % (24.0-44.0); MEAN CORPUSCULAR HEMOGLOBIN 29.5 pg (27.0-33.0); MEAN CORPUSCULAR HGB CONC 32.5 g/dl (32.0-36.5); MEAN CORPUSCULAR VOLUME 90.9 fl (80.0-96.0); MONO # 0.7 10^3/uL (0.0-0.8); MONO % 8.6 % (0.0-5.0); NEUTROPHILS # 3.9 10^3/uL (1.8-7.7); PLATELET COUNT, AUTOMATED 362 10^3/uL (150-450); RED BLOOD COUNT 3.86 10^6/uL (4.00-5.40); WHITE BLOOD COUNT 8.2 10^3/uL (4.0-10.0)
[2018-03-20 18:30] LABS: ALBUMIN 3.7 GM/DL (3.2-5.2); ALT/SGPT 20 U/L (12-78); BILIRUBIN,TOTAL 0.5 MG/DL (0.2-1.0); BLOOD UREA NITROGEN 30 MG/DL (7-18); CALCIUM LEVEL 9.4 MG/DL (8.5-10.1); CARBON DIOXIDE LEVEL 27 MEQ/L (21-32); CHLORIDE LEVEL 107 MEQ/L (98-107); CHOLESTEROL LEVEL 209 MG/DL (<200); CHOLESTEROL RISK RATIO 4.446 (<5); CREATININE FOR GFR 0.75 MG/DL (0.55-1.30); GLOMERULAR FILTRATION RATE > 60.0 (>51); GLUCOSE, FASTING 87 MG/DL (70-100); HDL CHOLESTEROL 47 MG/DL (>40); LDL CHOLESTEROL 133 MG/DL (<100); NON-HDL-C 162 MG/DL; POTASSIUM SERUM 3.9 MEQ/L (3.5-5.1); SODIUM LEVEL 141 MEQ/L (136-145); TOTAL 25(OH) VITAMIN D 17.6 NG/ML (30.0-100.0); TOTAL PROTEIN 6.6 GM/DL (6.4-8.2); TRIGLYCERIDES LEVEL 143 MG/DL (<150)
[2018-03-20 18:37] LABS: HEMOGLOBIN A1c 5.2 %
== END ==
LOC: M LAB REF 16:50
PROVIDERS: ATTEND Nurse Practitioner Family
DX: I33.9 Acute and subacute endocarditis, unspecified (principal)

== ENCOUNTER 2018-03-29 07:51 | Emergency (ER) | payer OTHER ==
[~2018-03-29] VITALS: Ht 177.8 cm; Wt 77.3 kg
[2018-03-29 07:52] VITALS: BP 166/92
[2018-03-29] MEDS ORDERED: PERCOCET 5MG/325MG TAB PO ONE ×2 (08:45→12:30)
[2018-03-29] MEDS ORDERED: KETOROLAC 30 MG/ML VIAL (J1885) IV ONE (08:45)
[2018-03-29 09:54] LABS: BLOOD UREA NITROGEN 28 MG/DL (7-18); C REACTIVE PROTEIN QUANTITATIV 0.64 MG/DL (0.00-0.30); CALCIUM LEVEL 9.5 MG/DL (8.5-10.1); CARBON DIOXIDE LEVEL 27 MEQ/L (21-32); CHLORIDE LEVEL 110 MEQ/L (98-107); CREATININE FOR GFR 0.86 MG/DL (0.55-1.30); GLOMERULAR FILTRATION RATE > 60.0 (>51); GLUCOSE, FASTING 93 MG/DL (70-100); POTASSIUM SERUM 3.7 MEQ/L (3.5-5.1); SODIUM LEVEL 141 MEQ/L (136-145)
[2018-03-29 11:23] LABS: ERYTHROCYTE SEDIMENTATION RATE 27 mm/hr (0-30)
[2018-03-29 11:30] LABS: BASO # 0.1 10^3/uL (0.0-0.2); EOS # 0.4 10^3/uL (0.0-0.50); EOS % 3.6 % (0.0-3.0); HEMOGLOBIN 13.5 g/dl (12.0-15.5); LYMPH % 31.2 % (24.0-44.0); MEAN CORPUSCULAR HEMOGLOBIN 29.6 pg (27.0-33.0); MEAN CORPUSCULAR HGB CONC 32.1 g/dl (32.0-36.5); MEAN CORPUSCULAR VOLUME 92.1 fl (80.0-96.0); MONO # 0.9 10^3/uL (0.0-0.8); MONO % 9.1 % (0.0-5.0); NEUTROPHILS # 5.3 10^3/uL (1.8-7.7); NEUTROPHILS % 54.8 % (36.0-66.0); PLATELET COUNT, AUTOMATED 442 10^3/uL (150-450); RED BLOOD COUNT 4.56 10^6/uL (4.00-5.40); WHITE BLOOD COUNT 9.7 10^3/uL (4.0-10.0)
[2018-03-29] MEDS ORDERED: PROHANCE 279.3MG/ML 15ML VIAL (A9576) As Ordered ONE (14:59)
--- NOTE | 2018-03-29 16:54 | REP ---
MR THORACIC SPINE WITHOUT AND WITH CONTRAST: HISTORY: Back pain. CONTRAST: ProHance 15 mL COMPARISON: 09/17/2017 A small right paracentral disc protrusion is present at the T1-2 level. There is minimal effacement of the thecal sac without spinal cord compression. The T1 neural foramina are patent. A small left paracentral disc protrusion is present at the T3-4 level. There is minimal effacement of the thecal sac without spinal cord compression. The T3 neural foramina are patent. A small left paracentral disc protrusion is present at the T5-6 level. There is minimal effacement of the thecal sac without spinal cord compression. The T5 neural foramina are patent. A diffuse disc bulge and small right paracentral disc protrusion are present at the T6-7 level. There is moderate effacement of the thecal sac without spinal cord compression. The T6 neural foramina are patent. A diffuse disc bulge is present at the T11-12 level. There is hypertrophy of the ligamenta flava and posterior articulating facets. These findings produce mild central canal stenosis. A diffuse disc bulge is present at the T12-L1 level. There is minimal effacement of the thecal sac without spinal cord compression. The T12 neural foramina are patent. The spinal cord is normal in signal intensity. Slight increased signal intensity on T2-weighted images is present in the endplates of the T11 and T12 vertebral bodies. The T11-12 intervertebral disc is decreased in signal intensity. There is mild heterogeneous enhancement with contrast. There is no paravertebral or epidural soft tissue component. A hemangioma is present in the T7 vertebral body. Normal signal intensity is present in the remaining thoracic vertebral bodies. There is loss of height of several mid and lower thoracic intervertebral discs. IMPRESSION: 1. Small disc protrusions at the T1-2, T3-4 and T5-6 levels without spinal cord compression. 2. Disc bulge and small disc protrusion at the T6-7 level without spinal cord compression. 3. Mild central canal stenosis at the T11-12 level secondary to disc bulge, ligamentous and facet hypertrophy. 4. A disc bulge at the T12-L1 level without spinal cord compression. 4. 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 There is no paravertebral or epidural component. There is slightly more enhancement of the intervertebral disc and T11 and T12 vertebral bodies. Electronically Signed by Narendra Bourgeois MD 03/29/2018 05:13 P
--- NOTE | 2018-03-29 17:21 | REP ---
MR LUMBAR SPINE WITHOUT AND WITH CONTRAST: HISTORY: Discitis. CONTRAST: ProHance 15 mL COMPARISON: 09/17/2017 Decreased signal intensity on T2-weighted images is present in the T12-L1 and L3-4 through L5-S1 intervertebral discs. The discs are decreased in height. These findings are consistent with disc degeneration. There is no disc bulge or herniation at the L1-2 level. The L1 nerves exit the neural foramina without compression. A diffuse disc bulge is present at the L2-3 level. There is minimal compression of the thecal sac. There is hypertrophy of the posterior articulating facets. The L2 nerves exit the neural foramina without compression. A diffuse disc bulge is present at the L3-4 level. There is hypertrophy of the ligamenta flava and posterior articulating facets. These findings produce mild central canal stenosis. The L3 nerves exit the neural foramina without compression. A diffuse disc bulge is present at the L4-5 level. There is hypertrophy of the ligamenta flava and posterior articulating facets. There are 3 mm of grade I spondylolisthesis of L5 on S1. These findings produce severe central canal stenosis. There is compression of the L4 nerves in the neural foramina. A diffuse disc bulge is present at the L5-S1 level. The previously noted disc extrusion is not seen. There is minimal compression of the thecal sac. There is hypertrophy of the posterior articulating facets. There is compression of the L5 nerves in the neural foramina. The conus medullaris is normal in appearance terminating at the level of the L1-2 intervertebral disc. There is enhancement of the T11-12 intervertebral disc and adjacent endplates of the T11 and T12 vertebral bodies consistent with discitis osteomyelitis. There is enhancement of the left L4-5 facet joint and L4 and L5 facets. This represents degenerative change. IMPRESSION: 1. Diffuse disc bulge at the L2-3 level with minimal thecal sac compression. 2. Mild central canal stenosis at the L3-4 level secondary to disc bulge, ligamentous and facet hypertrophy. 3. Severe central canal stenosis at the L4-5 level secondary to disc bulge, ligamentous and facet hypertrophy and grade 1 spondylolisthesis. There is compression of the L4 nerves in the neural foramina. 4. Diffuse disc bulge at the L5-S1 level with minimal thecal sac compression. There is compression of the L5 nerves in the neural foramina. The previously noted disc extrusion is not seen. 5. 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 Electronically Signed by Narendra Bourgeois MD 03/29/2018 05:25 P
--- NOTE | 2018-03-29 17:31 | REP ---
MR CERVICAL SPINE WITHOUT AND WITH CONTRAST: HISTORY: Neck pain. CONTRAST: ProHance 15 mL COMPARISON: 09/17/2017 A disc bulge is present at the C3-4 level. There is minimal effacement of the thecal sac without spinal cord compression. The C3 neural foramina are patent. A disc bulge with associated osteophyte formation is present at the C4-5 level. There is moderate effacement of the thecal sac without spinal cord compression. The C4 neural foramina are patent. A disc bulge with associated osteophyte formation is present at the C5-6 level. There is minimal spinal cord compression. Bilateral uncinate process hypertrophy is present. This produces mildly and moderate narrowing of the right and left C5 neural foramina respectively. A disc bulge with associated osteophyte formation is present at the C6-7 level. There is minimal spinal cord compression. Bilateral uncinate process hypertrophy is present. This produces moderate narrowing of the C6 neural foramina. There is no other disc bulge or herniation. The remaining neural foramina are patent. The spinal cord is normal in signal intensity. The C4-5 through C6-7 intervertebral discs are decreased in height consistent with disc degeneration. There are compression fractures of the C5 and C6 vertebral bodies with mild and minimal loss of height respectively. The vertebral bodies are normal in signal intensity. There is very minimal enhancement of the C5-6 intervertebral disc. There is loss of the normal lordotic curve. IMPRESSION: There is cervical spondylosis at the C3-4 through C6-7 levels, most significant at the C5-6 and C6-7 levels where there is minimal spinal cord compression. Electronically Signed by Narendra Bourgeois MD 03/29/2018 05:36 P
[2018-03-29] MEDS ORDERED: NAPR-50 PO (17:38)
[2018-03-29] MEDS ORDERED: ROBA500T PO (17:38)
--- NOTE | 2018-04-03 15:25 | ED PDOC ---
Post-Departure Follow-Up belle suarez faxed formal report of mri c/ t/ ls spine reports for fu Randy Lopez MD Apr 03, 2018 15:25
== END 2018-03-29 18:09 | disposition home or self-care (01) ==
LOC: M ED 07:51
DX: M54.9 Dorsalgia, unspecified (principal); G89.29 Other chronic pain; K21.9 Gastro-esophageal reflux disease without esophagitis; G43.909 Migraine, unspecified, not intractable, without status migrainosus; I10 Essential (primary) hypertension; M51.36 Other intervertebral disc degeneration, lumbar region
CPT/HCPCS: 72156; 72157; 72158; 80048; 83605; 85025; 85652; 86140; 87040; 96374; 99283; A9576; J1885

== ENCOUNTER 2018-05-30 19:03 | Emergency (ER) | payer OTHER ==
[~2018-05-30] VITALS: Ht 177.8 cm; Wt 77.3 kg
[~2018-05-30 19:03] MED LIST changes: +HYDR-3715 PO; +NAPR-837 PO; -NORCOTAB PO
[2018-05-30] MEDS ORDERED: CYCLOBENZAPRINE 10 MG TAB PO ONE (21:15)
[2018-05-30] MEDS ORDERED: METOCLOPRAMIDE INJ 10MG/2ML VIAL (J2765) IV ONE (21:15)
[2018-05-30] MEDS ORDERED: diphenhydrAMINE INJ 50MG/ML VIAL (J1200) IV ONE (21:15)
[2018-05-30] MEDS ORDERED: KETOROLAC 30 MG/ML VIAL (J1885) IV ONE (21:15)
[2018-05-30] MEDS ORDERED: NS 1,000 ML IV ONE (21:15)
[2018-05-30 21:51] LABS: HEMATOCRIT 38.8 % (36.0-47.0); HEMOGLOBIN 12.9 g/dl (12.0-15.5); MEAN CORPUSCULAR HEMOGLOBIN 30.3 pg (27.0-33.0); MEAN CORPUSCULAR HGB CONC 33.2 g/dl (32.0-36.5); MEAN CORPUSCULAR VOLUME 91.1 fl (80.0-96.0); PLATELET COUNT, AUTOMATED 346 10^3/uL (150-450); RED BLOOD COUNT 4.26 10^6/uL (4.00-5.40); WHITE BLOOD COUNT 9.7 10^3/uL (4.0-10.0)
[2018-05-30 22:13] LABS: BLOOD UREA NITROGEN 31 MG/DL (7-18); CARBON DIOXIDE LEVEL 26 MEQ/L (21-32); CHLORIDE LEVEL 110 MEQ/L (98-107); GLOMERULAR FILTRATION RATE > 60.0 (>51); GLUCOSE, FASTING 91 MG/DL (70-100); POTASSIUM SERUM 3.4 MEQ/L (3.5-5.1); SODIUM LEVEL 143 MEQ/L (136-145)
[2018-05-30] MEDS ORDERED: CYCL10TA PO (23:36)
[2018-05-30 23:54] VITALS: BP 179/98
== END 2018-05-30 23:59 | disposition home or self-care (01) ==
LOC: M ED 19:03
DX: G43.909 Migraine, unspecified, not intractable, without status migrainosus (principal); H50.21 Vertical strabismus, right eye; E86.0 Dehydration; M54.2 Cervicalgia; I10 Essential (primary) hypertension; E78.5 Hyperlipidemia, unspecified; M54.30 Sciatica, unspecified side; K21.9 Gastro-esophageal reflux disease without esophagitis; M48.00 Spinal stenosis, site unspecified; F10.10 Alcohol abuse, uncomplicated; F19.10 Other psychoactive substance abuse, uncomplicated; Z87.442 Personal history of urinary calculi; Z72.0 Tobacco use; Z79.899 Other long term (current) drug therapy; Z79.891 Long term (current) use of opiate analgesic
CPT/HCPCS: 80048; 85027; 96361; 96374; 96375; 99284; J1200; J1885; J2765

== ENCOUNTER → 2018-06-29 | Outpatient (REF) | payer OTHER, MEDICAID ==
[2018-06-29 20:17] LABS: CHLAMYDIA DNA AMPLIFICATION NEGATIVE (NEGATIVE); GC DNA AMPLIFICATION NEGATIVE (NEGATIVE)
[2018-07-01 15:08] LABS: HPV HYBRID CAPTURE II Negative (Negative)
== END ==
LOC: M LAB REF 17:02
PROVIDERS: ATTEND Nurse Practitioner Family
DX: Z13.9 Encounter for screening, unspecified (principal)

== ENCOUNTER → 2018-06-29 | Outpatient (REF) | payer OTHER, MEDICAID ==
[2018-06-29 19:00] LABS: APPEARANCE, URINE HAZY (CLEAR); BACTERIA, URINE AUTO NEGATIVE (NEGATIVE); BILIRUBIN, URINE AUTO NEGATIVE (NEGATIVE); BLOOD, URINE BLOOD NEGATIVE (NEGATIVE); COLOR, URINE YELLOW (YELLOW); GLUCOSE, URINE (UA) AUTO NEGATIVE (NEGATIVE); KETONE, URINE AUTO TRACE mg/dL (NEGATIVE); LEUKOCYTE ESTERASE, URINE AUTO NEGATIVE (NEGATIVE); MUCUS, URINE LARGE (NEGATIVE); NITRITE, URINE AUTO NEGATIVE (NEGATIVE); PROTEIN, URINE AUTO NEGATIVE (NEGATIVE); RBC, URINE AUTO 4 /HPF (0-3); SQUAMOUS EPITHELIAL CELL UR AU 3 /HPF (0-6); WBC, URINE AUTO 1 /HPF (0-3)
== END ==
LOC: M LAB REF 17:00
PROVIDERS: ATTEND Nurse Practitioner Family
DX: Z13.9 Encounter for screening, unspecified (principal)

== ENCOUNTER 2018-08-09 15:16 | Emergency (ER) | payer OTHER ==
[~2018-08-09] VITALS: Ht 172.7 cm; Wt 77.3 kg
[2018-08-09] MEDS ORDERED: NARC1SPR (15:23)
[2018-08-09] MEDS ORDERED: OXYC1TAB15 (15:23)
--- NOTE | 2018-08-09 16:45 | REP ---
CT Head without contrast HISTORY: Headache COMPARISON: 09/15/2017 There is no intraparenchymal hemorrhage, acute infarct, mass or midline shift. The ventricular system is normal in appearance. There is no extra cerebral collection. There is no fracture. The visualized sinuses are clear. IMPRESSION: There is no intracranial lesion. Electronically Signed by Narendra Bourgeois MD 08/09/2018 04:37 P
[2018-08-09 16:59] LABS: BASO # 0.1 10^3/uL (0.0-0.2); EOS # 0.5 10^3/uL (0.0-0.50); EOS % 5.5 % (0.0-3.0); HEMATOCRIT 36.9 % (36.0-47.0); HEMOGLOBIN 12.2 g/dl (12.0-15.5); LYMPH # 3.1 10^3/uL (1.5-4.5); LYMPH % 34.3 % (24.0-44.0); MEAN CORPUSCULAR HEMOGLOBIN 30.6 pg (27.0-33.0); MEAN CORPUSCULAR HGB CONC 33.1 g/dl (32.0-36.5); MEAN CORPUSCULAR VOLUME 92.5 fl (80.0-96.0); MONO # 0.7 10^3/uL (0.0-0.8); MONO % 7.4 % (0.0-5.0); NEUTROPHILS # 4.6 10^3/uL (1.8-7.7); NEUTROPHILS % 51.5 % (36.0-66.0); PLATELET COUNT, AUTOMATED 332 10^3/uL (150-450); RED BLOOD COUNT 3.99 10^6/uL (4.00-5.40)
[2018-08-09] MEDS ORDERED: diphenhydrAMINE INJ 50MG/ML VIAL (J1200) IV STA (17:06)
[2018-08-09] MEDS ORDERED: NS 1,000 ML IV ONE (17:15)
[2018-08-09] MEDS ORDERED: KETOROLAC 30 MG/ML VIAL (J1885) IV ONE (17:15)
[2018-08-09] MEDS ORDERED: METOCLOPRAMIDE INJ 10MG/2ML VIAL (J2765) IV ONE (17:15)
[2018-08-09 17:29] LABS: ALBUMIN 3.4 GM/DL (3.2-5.2); ALT/SGPT 20 U/L (12-78); BILIRUBIN,TOTAL 0.5 MG/DL (0.2-1.0); BLOOD UREA NITROGEN 30 MG/DL (7-18); CALCIUM LEVEL 8.6 MG/DL (8.5-10.1); CARBON DIOXIDE LEVEL 28 MEQ/L (21-32); CHLORIDE LEVEL 111 MEQ/L (98-107); CREATININE FOR GFR 0.72 MG/DL (0.55-1.30); GLOMERULAR FILTRATION RATE > 60.0 (>51); GLUCOSE, FASTING 99 MG/DL (70-100); POTASSIUM SERUM 5.3 MEQ/L (3.5-5.1); SODIUM LEVEL 144 MEQ/L (136-145); TOTAL PROTEIN 6.6 GM/DL (6.4-8.2)
--- NOTE | 2018-08-09 19:11 | REPVR ---
EXAM: MR Head Without Contrast EXAM DATE/TIME: 08/09/2018 6:23 PM CLINICAL HISTORY: 58 years old, female; Signs and symptoms; Visual disturbance; Additional info: Blurring of vision; Right sided FLORENTINO; Non-alignment of eyes TECHNIQUE: Imaging protocol: MR of the head without contrast. COMPARISON: MRA BRAIN W/O CONTRAST 08/09/2018 5:40 PM FINDINGS: Brain: No acute infarct identified on the diffusion weighted imaging. No parenchymal hemorrhage. The brain demonstrates mild volume loss, prominent for age. Patchy increased signal intensity in the deep white matter and katharine, atypical for the patient's age; this could reflect chronic small vessel ischemic change if there are clinical risk factors such as diabetes or hypertension, the possibility of primary demyelinating disease is considered. This is unchanged since the prior study. An 11 mm heavily calcified right frontal meningioma is questioned versus calvarial osteoma, stable. Ventricles: Stable. No ventriculomegaly. Bones/joints: Unremarkable. Soft tissues: Normal. Sinuses: Retention cysts or polyps in the maxillary sinuses. Mastoid air cells: Normal as visualized. No mastoid effusion. Orbits: Unremarkable. IMPRESSION: No evidence of acute infarct. Electronically signed by: Amanda Castro On 08/09/2018 19:11:39 PM
--- NOTE | 2018-08-09 19:20 | REPVR ---
EXAM: MR Angiogram Head Without Contrast, Arteries EXAM DATE/TIME: 08/09/2018 6:23 PM CLINICAL HISTORY: 58 years old, female; Signs and symptoms; Visual disturbance; Other visual defect; Additional info: Blurring of vision; Right sided FLORENTINO; Non-alignment of eyes TECHNIQUE: Imaging protocol: MR angiogram head without contrast. Exam focused on the arteries. COMPARISON: MRI-Brain W/O FOLL BY WITH 09/15/2017 8:42 PM FINDINGS: Right internal carotid artery: Unremarkable. Intracranial segment is patent with no significant stenosis. No aneurysm. Right anterior cerebral artery: Patent. The anterior communicating artery demonstrates a 1-2 mm bulbous prominence, the appearance could be related to a fenestration based on the source data; on the projection images, no definite saccular aneurysm identified. Right middle cerebral artery: Unremarkable. No occlusion or significant stenosis. No aneurysm. Right posterior cerebral artery: Unremarkable. No occlusion or significant stenosis. No aneurysm. Right vertebral artery: Unremarkable. No occlusion or significant stenosis. No aneurysm. Left internal carotid artery: Unremarkable. Intracranial segment is patent with no significant stenosis. No aneurysm. Left anterior cerebral artery: Unremarkable. No occlusion or significant stenosis. No aneurysm. Left middle cerebral artery: Patent. There is an inferiorly directed outpouching at the left middle cerebral artery bifurcation consistent with aneurysm. The dome height is approximately 3.8 mm. The dome width is approximately 3.2 mm. The aneurysm is seen for example on image 4 of series 208. Left posterior cerebral artery: Unremarkable. No occlusion or significant stenosis. No aneurysm. 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 Basilar artery: Unremarkable. No occlusion or significant stenosis. No aneurysm. IMPRESSION: 1. No major proximal vessel branch occlusion. 2. 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 Electronically signed by: Amanda Castro On 08/09/2018 19:19:31 PM
[2018-08-09 20:15] VITALS: BP 151/98
--- NOTE | 2018-08-09 20:16 | ECGEPIP ---
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
--- NOTE | 2018-08-10 06:43 | ED PDOC ---
Post-Departure Follow-Up dr mart and neeta suarez faxed formal report of mra/mri of brain for fu Randy Quesada MD Aug 10, 2018 06:43
== END 2018-08-09 20:16 | disposition home or self-care (01) ==
LOC: M ED 15:16
DX: I67.1 Cerebral aneurysm, nonruptured (principal); I10 Essential (primary) hypertension; Z79.899 Other long term (current) drug therapy; Z79.82 Long term (current) use of aspirin; F17.210 Nicotine dependence, cigarettes, uncomplicated
CPT/HCPCS: 70450; 70544; 70551; 80053; 85025; 93005; 96374; 96375; 99284; J1200; J1885; J2765

== ENCOUNTER → 2018-08-11 | Outpatient (REF) | payer OTHER, MEDICAID ==
[~2018-08-11] MED LIST changes: +CENT1TAB PO; +EXCETAB33 PO; +NARC1SPR; +OXYC1TAB15
[2018-08-11 18:16] LABS: ALT/SGPT 23 U/L (12-78); BILIRUBIN,TOTAL 0.5 MG/DL (0.2-1.0); BLOOD UREA NITROGEN 34 MG/DL (7-18); CALCIUM LEVEL 9.4 MG/DL (8.5-10.1); CARBON DIOXIDE LEVEL 27 MEQ/L (21-32); CHLORIDE LEVEL 110 MEQ/L (98-107); CHOLESTEROL LEVEL 240 MG/DL (<200); CHOLESTEROL RISK RATIO 4.528 (<5); CREATININE FOR GFR 0.78 MG/DL (0.55-1.30); GLOMERULAR FILTRATION RATE > 60.0 (>51); GLUCOSE, FASTING 90 MG/DL (70-100); HDL CHOLESTEROL 53 MG/DL (>40); LDL CHOLESTEROL 162 MG/DL (<100); NON-HDL-C 187 MG/DL; POTASSIUM SERUM 4.2 MEQ/L (3.5-5.1); SODIUM LEVEL 143 MEQ/L (136-145); TOTAL PROTEIN 7.2 GM/DL (6.4-8.2); TRIGLYCERIDES LEVEL 123 MG/DL (<150)
[2018-08-11 18:42] LABS: BASO # 0.1 10^3/uL (0.0-0.2); BASO % 1.1 % (0.0-1.0); EOS # 0.5 10^3/uL (0.0-0.50); EOS % 4.9 % (0.0-3.0); HEMATOCRIT 40.6 % (36.0-47.0); HEMOGLOBIN 13.1 g/dl (12.0-15.5); LYMPH # 2.8 10^3/uL (1.5-4.5); LYMPH % 29.1 % (24.0-44.0); MEAN CORPUSCULAR HEMOGLOBIN 31.2 pg (27.0-33.0); MEAN CORPUSCULAR HGB CONC 32.3 g/dl (32.0-36.5); MEAN CORPUSCULAR VOLUME 96.7 fl (80.0-96.0); MONO # 0.8 10^3/uL (0.0-0.8); MONO % 8.6 % (0.0-5.0); NEUTROPHILS # 5.3 10^3/uL (1.8-7.7); NEUTROPHILS % 56.1 % (36.0-66.0); PLATELET COUNT, AUTOMATED 344 10^3/uL (150-450); WHITE BLOOD COUNT 9.5 10^3/uL (4.0-10.0)
== END ==
LOC: M LAB REF 16:51
PROVIDERS: ATTEND Nurse Practitioner Family
DX: I67.1 Cerebral aneurysm, nonruptured (principal)

== ENCOUNTER 2018-08-13 10:47 | Emergency (ER) | payer OTHER, MEDICAID ==
[~2018-08-13] VITALS: Ht 172.7 cm; Wt 82.6 kg
[~2018-08-13 10:47] MED LIST changes: -CENT1TAB PO; -EXCETAB33 PO
[2018-08-13] MEDS ORDERED: CENT1TAB PO (11:08)
[2018-08-13] MEDS ORDERED: EXCETAB33 PO (11:08)
[2018-08-13] MEDS ORDERED: IBUP-1022 PO (11:08)
[2018-08-13 11:31] VITALS: BP 137/88
== END 2018-08-13 12:01 | disposition left against medical advice (07) ==
LOC: M ED 10:47
DX: Z53.21 Procedure and treatment not carried out due to patient leaving prior to being seen by health care provider (principal)

== ENCOUNTER 2018-12-24 11:59 | Emergency (ER) | payer OTHER ==
[~2018-12-24] VITALS: Ht 172.7 cm; Wt 77.3 kg
[~2018-12-24 11:59] MED LIST changes: +CENT1TAB PO; -DULO1CAP3 PO; +DULO1CAP6 PO; +EXCETAB33 PO
--- NOTE | 2018-12-24 13:06 | REP ---
Right knee series: Five views. History: Injury in a fall. Comparison right knee radiographs are from January 01, 2015. Findings: There is mild diffuse osteopenia. Clothing artifact is seen over the distal thigh soft tissues. There is mild swelling over the patella on lateral view. There is patellofemoral osteoarthritic spurring. Vascular calcifications noted. No fractures seen. Impression: No fracture noted. Mild osteoarthritis. Electronically Signed by Barry Castillo MD 12/24/2018 12:57 P
[2018-12-24 13:21] VITALS: BP 165/80
--- NOTE | 2018-12-24 14:11 | REP ---
CT brain without contrast. History: Injury in a fall. 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 Bone window settings demonstrate an intact bony calvarium. No skull fracture is seen. Visualized paranasal sinuses are clear. No intraorbital abnormality is seen. No scalp hematoma is appreciated. There is a small osteoma of the inner table of the right frontal bone. This is unchanged from August 09, 2018 prior study. On soft tissue window settings, there is mild generalized volume loss. There are small vessel atherosclerotic changes in the periventricular white matter of the frontal lobes. These are unchanged from the comparison study. No new infarction is seen. No hemorrhage is noted. Minimal vascular calcification is visible. Impression: Small vessel atherosclerotic changes. There is no evidence of intracranial hemorrhage or contusion. No skull fracture. No acute intracranial lesion. Electronically Signed by Barry Castillo MD 12/24/2018 02:25 P
== END 2018-12-24 13:23 | disposition home or self-care (01) ==
LOC: M ED 11:59 → EDBD 11:59 → EDSEX 11:59 → M ED 13:23
DX: T14.8XXA Other injury of unspecified body region, initial encounter (principal); W18.39XA Other fall on same level, initial encounter; Y92.410 Unspecified street and highway as the place of occurrence of the external cause; K21.9 Gastro-esophageal reflux disease without esophagitis; Z79.82 Long term (current) use of aspirin; F10.10 Alcohol abuse, uncomplicated; F19.10 Other psychoactive substance abuse, uncomplicated; F17.210 Nicotine dependence, cigarettes, uncomplicated

== ENCOUNTER → 2019-07-26 | Outpatient (REF) | payer OTHER ==
[~2019-07-26] MED LIST changes: +CYCL-707 PO; -CYCL10TA PO
[2019-07-26 16:54] LABS: APPEARANCE, URINE CLEAR (CLEAR); BACTERIA, URINE AUTO NEGATIVE (NEGATIVE); BILIRUBIN, URINE AUTO NEGATIVE (NEGATIVE); BLOOD, URINE BLOOD NEGATIVE (NEGATIVE); COLOR, URINE YELLOW (YELLOW); GLUCOSE, URINE (UA) AUTO NEGATIVE (NEGATIVE); KETONE, URINE AUTO NEGATIVE (NEGATIVE); LEUKOCYTE ESTERASE, URINE AUTO NEGATIVE (NEGATIVE); MUCUS, URINE SMALL (NEGATIVE); NITRITE, URINE AUTO NEGATIVE (NEGATIVE); PROTEIN, URINE AUTO NEGATIVE (NEGATIVE); RBC, URINE AUTO 1 /HPF (0-3); SPECIFIC GRAVITY URINE AUTO 1.019 (1.002-1.035); SQUAMOUS EPITHELIAL CELL UR AU 0 /HPF (0-6); UROBILINOGEN, URINE AUTO 0.2 mg/dL (0.0-2.0); WBC, URINE AUTO 7 /HPF (0-3)
== END ==
LOC: M LAB REF 16:23
PROVIDERS: ATTEND Nurse Practitioner Family
DX: R35.0 Frequency of micturition (principal)

== ENCOUNTER 2019-09-06 10:08 | Emergency (ER) | payer OTHER ==
[~2019-09-06] VITALS: Ht 177.8 cm; Wt 80.1 kg
[2019-09-06] MEDS ORDERED: GABA-843 (10:16)
[2019-09-06] MEDS ORDERED: AIMO70IN (10:16)
[2019-09-06] MEDS ORDERED: COLA100C5 PO (10:44)
[2019-09-06] MEDS ORDERED: traMADol 50 MG TAB PO ONE (10:45)
[2019-09-06] MEDS ORDERED: ACETAMINOPHEN 325 MG TAB PO ONE (10:45)
[2019-09-06] MEDS ORDERED: QC A650T3 PO (11:21)
[2019-09-06] MEDS ORDERED: METH1TAB40 PO (11:21)
[2019-09-06 11:37] VITALS: BP 169/90
== END 2019-09-06 11:38 | disposition home or self-care (01) ==
LOC: M ED 10:08
DX: M54.32 Sciatica, left side (principal); M62.830 Muscle spasm of back; M54.2 Cervicalgia; M25.552 Pain in left hip; F17.218 Nicotine dependence, cigarettes, with other nicotine-induced disorders

== ENCOUNTER → 2019-12-05 | Outpatient (REF) | payer OTHER, MEDICAID ==
[~2019-12-05] MED LIST changes: +ACET650T61 PO; +AIMO70IN; +COLA100C5 PO; +METH1TAB40 PO; +QC A650T3 PO; -TYLE650T35 PO
== END ==
LOC: M LAB REF 12:42
PROVIDERS: ATTEND Nurse Practitioner Family
DX: Z12.4 Encounter for screening for malignant neoplasm of cervix (principal)

== ENCOUNTER → 2020-01-01 | Outpatient (REF) | payer OTHER, MEDICAID ==
[2020-01-01 17:36] LABS: BASO # 0.1 10^3/uL (0.0-0.2); BASO % 1.4 % (0.0-1.0); EOS # 0.6 10^3/uL (0.0-0.5); EOS % 5.8 % (0.0-3.0); HEMATOCRIT 45.8 % (36.0-47.0); HEMOGLOBIN 14.5 g/dl (12.0-15.5); LYMPH # 4.4 10^3/uL (1.5-5.0); LYMPH % 43.6 % (24.0-44.0); MEAN CORPUSCULAR HEMOGLOBIN 30.4 pg (27.0-33.0); MEAN CORPUSCULAR HGB CONC 31.7 g/dl (32.0-36.5); MONO # 0.9 10^3/uL (0.0-0.8); MONO % 8.6 % (0.0-5.0); NEUTROPHILS # 4.1 10^3/uL (1.5-8.5); NEUTROPHILS % 40.4 % (36.0-66.0); PLATELET COUNT, AUTOMATED 354 10^3/uL (150-450); RED BLOOD COUNT 4.77 10^6/uL (4.00-5.40); WHITE BLOOD COUNT 10.1 10^3/uL (4.0-10.0)
[2020-01-01 18:14] LABS: ALBUMIN 3.9 GM/DL (3.2-5.2); ALT/SGPT 24 U/L (12-78); BILIRUBIN,TOTAL 0.2 MG/DL (0.2-1.0); BLOOD UREA NITROGEN 35 MG/DL (7-18); CARBON DIOXIDE LEVEL 24 MEQ/L (21-32); CHLORIDE LEVEL 111 MEQ/L (98-107); CHOLESTEROL LEVEL 239 MG/DL (<200); CREATININE FOR GFR 0.99 MG/DL (0.55-1.30); GLOMERULAR FILTRATION RATE > 60.0 (>51); GLUCOSE, FASTING 92 MG/DL (70-100); HDL CHOLESTEROL 50 MG/DL (>40); LDL CHOLESTEROL 164 MG/DL (<100); NON-HDL-C 189 MG/DL; POTASSIUM SERUM 4.4 MEQ/L (3.5-5.1); SODIUM LEVEL 142 MEQ/L (136-145); TOTAL PROTEIN 6.9 GM/DL (6.4-8.2); TRIGLYCERIDES LEVEL 123 MG/DL (<150)
== END ==
LOC: M LAB REF 16:41
PROVIDERS: ATTEND Nurse Practitioner Family
DX: M79.2 Neuralgia and neuritis, unspecified (principal); G25.81 Restless legs syndrome; Z13.9 Encounter for screening, unspecified; G47.00 Insomnia, unspecified; E78.5 Hyperlipidemia, unspecified

== ENCOUNTER → 2020-01-07 | Outpatient (CLI) | payer MEDICARE, OTHER ==
[2020-01-07 17:12] LABS: C REACTIVE PROTEIN QUANTITATIV 0.58 MG/DL (0.00-0.30); THYROID STIMULATING HORMONE 1.37 uIU/ML (0.358-3.740)
[2020-01-11 10:08] LABS: ACETYLCHOLINE RCPTOR BINDING A < 0.03 nmol/L (0.00-0.24); ACETYLCHOLINE RCPTOR BLOCK AB 21 % (0-25); ACETYLCHOLINE RCPTOR MODULATIN <12 % (0-20)
== END ==
LOC: M LAB 13:30
PROVIDERS: ATTEND Physician Assistant
DX: H50.111 Monocular exotropia, right eye (principal)

== ENCOUNTER → 2020-01-07 | Outpatient (CLI) | payer MEDICARE, OTHER ==
[2020-01-07 14:15] LABS: HEMATOCRIT 42.3 % (36.0-47.0); HEMOGLOBIN 13.8 g/dl (12.0-15.5); MEAN CORPUSCULAR HGB CONC 32.6 g/dl (32.0-36.5); MEAN CORPUSCULAR VOLUME 95.1 fl (80.0-96.0); PLATELET COUNT, AUTOMATED 344 10^3/uL (150-450); RED BLOOD COUNT 4.45 10^6/uL (4.00-5.40); WHITE BLOOD COUNT 9.1 10^3/uL (4.0-10.0)
[2020-01-07 18:46] LABS: ALBUMIN 3.9 GM/DL (3.2-5.2); ALT/SGPT 24 U/L (12-78); BILIRUBIN,TOTAL 0.3 MG/DL (0.2-1.0); BLOOD UREA NITROGEN 28 MG/DL (7-18); CALCIUM LEVEL 9.2 MG/DL (8.5-10.1); CARBON DIOXIDE LEVEL 30 MEQ/L (21-32); CHLORIDE LEVEL 109 MEQ/L (98-107); CHOLESTEROL LEVEL 231 MG/DL (<200); CHOLESTEROL RISK RATIO 4.052 (<5); GLOMERULAR FILTRATION RATE > 60.0 (>51); GLUCOSE, FASTING 78 MG/DL (70-100); HDL CHOLESTEROL 57 MG/DL (>40); LDL CHOLESTEROL 153 MG/DL (<100); NON-HDL-C 174 MG/DL; POTASSIUM SERUM 4.1 MEQ/L (3.5-5.1); SODIUM LEVEL 141 MEQ/L (136-145); TOTAL 25(OH) VITAMIN D 28.5 NG/ML (30.0-100.0); TOTAL PROTEIN 7.1 GM/DL (6.4-8.2); TRIGLYCERIDES LEVEL 107 MG/DL (<150)
[2020-01-07 20:20] LABS: HEMOGLOBIN A1c 5.5 %
--- NOTE | 2020-01-07 21:23 | ECGEPIP ---
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
== END ==
LOC: M LAB 13:27
PROVIDERS: ATTEND Nurse Practitioner Psychiatric/Mental Health
DX: F33.9 Major depressive disorder, recurrent, unspecified (principal); Z79.899 Other long term (current) drug therapy

== ENCOUNTER 2020-02-23 12:44 | Emergency (ER) | payer MEDICARE, OTHER ==
[~2020-02-23] VITALS: Ht 177.8 cm; Wt 81.9 kg
[2020-02-23] MEDS ORDERED: BRIN10TA4 (12:56)
[2020-02-23] MEDS ORDERED: ROPI1TAB3 (12:56)
[2020-02-23] MEDS ORDERED: BUSP10TA (12:56)
[2020-02-23] MEDS ORDERED: AMIT25TA (12:56)
[2020-02-23] MEDS ORDERED: ALPRAZolam 0.5 MG TAB PO ONE (14:00)
[2020-02-23] MEDS ORDERED: XANA0.25 PO (14:33)
[2020-02-23 15:00] VITALS: BP 137/71
== END 2020-02-23 15:15 | disposition home or self-care (01) ==
LOC: M ED 12:44
DX: F41.8 Other specified anxiety disorders (principal); G89.29 Other chronic pain; F10.10 Alcohol abuse, uncomplicated; F19.10 Other psychoactive substance abuse, uncomplicated; Z79.899 Other long term (current) drug therapy; F17.210 Nicotine dependence, cigarettes, uncomplicated

== ENCOUNTER → 2020-07-14 | Outpatient (REF) | payer MEDICARE, MEDICAID ==
[~2020-07-14] MED LIST changes: -AMIT25TA; -AMIT25TA PO; +AMIT25TA17; +AMIT25TA17 PO; +BRIN10TA4; +BUSP10TA; +GABA-282; +GABA-282 PO; -GABA-843; -GABA-843 PO; +METH-1164 PO; -METH1TAB40 PO; +ROPI1TAB3; +XANA0.25 PO
[2020-07-14 12:03] LABS: BASO # 0.1 10^3/uL (0.0-0.2); BASO % 1.3 % (0.0-1.0); EOS # 0.5 10^3/uL (0.0-0.5); EOS % 5.3 % (0.0-3.0); HEMATOCRIT 47.3 % (36.0-47.0); HEMOGLOBIN 15.3 g/dl (12.0-15.5); LYMPH # 3.5 10^3/uL (1.5-5.0); LYMPH % 35.7 % (24.0-44.0); MEAN CORPUSCULAR HEMOGLOBIN 30.1 pg (27.0-33.0); MEAN CORPUSCULAR HGB CONC 32.3 g/dl (32.0-36.5); MEAN CORPUSCULAR VOLUME 92.9 fl (80.0-96.0); MONO # 0.8 10^3/uL (0.0-0.8); MONO % 8.1 % (2.0-8.0); NEUTROPHILS # 4.9 10^3/uL (1.5-8.5); NEUTROPHILS % 49.3 % (36.0-66.0); PLATELET COUNT, AUTOMATED 420 10^3/uL (150-450); RED BLOOD COUNT 5.09 10^6/uL (4.00-5.40); WHITE BLOOD COUNT 9.9 10^3/uL (4.0-10.0)
[2020-07-14 12:35] LABS: ALBUMIN 4.1 GM/DL (3.2-5.2); BILIRUBIN,TOTAL 0.3 MG/DL (0.2-1.0); CALCIUM LEVEL 9.9 MG/DL (8.8-10.2); CHOLESTEROL RISK RATIO 5.703 (<5); CREATININE FOR GFR 1.02 MG/DL (0.55-1.30); GLOMERULAR FILTRATION RATE 58.8 (>45); POTASSIUM SERUM 4.2 MEQ/L (3.5-5.1); TOTAL PROTEIN 7.2 GM/DL (6.4-8.2)
== END ==
LOC: M LAB REF 11:33
PROVIDERS: ATTEND Physician Assistant
DX: Z01.818 Encounter for other preprocedural examination (principal); E78.5 Hyperlipidemia, unspecified

== ENCOUNTER → 2020-07-24 | Outpatient (CLI) | payer MEDICARE, OTHER | LOC: M LABSMTC 09:39 | PROVIDERS: ATTEND Ophthalmology | DX: Z01.812 Encounter for preprocedural laboratory examination (principal); Z11.52 Encounter for screening for COVID-19; H50.111 Monocular exotropia, right eye ==

== ENCOUNTER 2020-09-01 19:16 | Observation (INO) | payer MEDICARE ==
[~2020-09-01] VITALS: Ht 177.8 cm; Wt 90.0 kg
[~2020-09-01 19:16] MED LIST changes: -OXYC1TAB15; +OXYC7.5T3
[2020-09-01 19:59] LABS: BASO # 0.1 10^3/uL (0.0-0.2); EOS # 0.3 10^3/uL (0.0-0.5); EOS % 2.6 % (0.0-3.0); HEMATOCRIT 41.4 % (36.0-47.0); HEMOGLOBIN 13.6 g/dl (12.0-15.5); LYMPH # 3.4 10^3/uL (1.5-5.0); LYMPH % 30.6 % (24.0-44.0); MEAN CORPUSCULAR HEMOGLOBIN 30.5 pg (27.0-33.0); MEAN CORPUSCULAR HGB CONC 32.9 g/dl (32.0-36.5); MEAN CORPUSCULAR VOLUME 92.8 fl (80.0-96.0); MONO % 8.8 % (2.0-8.0); NEUTROPHILS # 6.3 10^3/uL (1.5-8.5); NEUTROPHILS % 56.6 % (36.0-66.0); PLATELET COUNT, AUTOMATED 383 10^3/uL (150-450); RED BLOOD COUNT 4.46 10^6/uL (4.00-5.40); WHITE BLOOD COUNT 11.2 10^3/uL (4.0-10.0)
[2020-09-01] MEDS ORDERED: CLON0.5T2 (20:01)
[2020-09-01] MEDS ORDERED: AMLO1TAB24 (20:01)
[2020-09-01] MEDS ORDERED: CITA20TA6 (20:01)
[2020-09-01] MEDS ORDERED: ATOR1TAB21 (20:01)
[2020-09-01] MEDS ORDERED: NS 1,000 ML IV ONE (20:35)
[2020-09-01 20:45] LABS: ACETAMINOPHEN LEVEL 2.5 UG/ML (10.0-30.0); ALBUMIN 3.4 GM/DL (3.2-5.2); ALT/SGPT 15 U/L (12-78); BILIRUBIN,DIRECT 0.1 MG/DL (0.0-0.2); BILIRUBIN,TOTAL 0.4 MG/DL (0.2-1.0); BLOOD UREA NITROGEN 37 MG/DL (7-18); CARBON DIOXIDE LEVEL 24 MEQ/L (21-32); CHLORIDE LEVEL 112 MEQ/L (98-107); CPK CREATINE PHOSPHOKINASE 45 U/L (26-192); CREATININE FOR GFR 1.77 MG/DL (0.55-1.30); ETHYL ALCOHOL (ETHANOL) < 0.003 % (0.000-0.010); GLOMERULAR FILTRATION RATE 31.2 (>45); GLUCOSE, FASTING 104 MG/DL (70-100); POTASSIUM SERUM 4.4 MEQ/L (3.5-5.1); SALICYLATE LEVEL 10.4 MG/DL (5.0-30.0); SODIUM LEVEL 145 MEQ/L (136-145); TOTAL PROTEIN 6.5 GM/DL (6.4-8.2)
[2020-09-01] MEDS ORDERED: ATORVASTATIN 20 MG TAB PO SCH (21:00)
--- NOTE | 2020-09-01 22:09 | REPVR ---
PROCEDURE INFORMATION: Exam: CT Head without Contrast Exam date and time: 09/01/20 (9:09pm) Age: 60 years old Clinical indication: Speech disturbance. Slurred speech. TECHNIQUE: Imaging protocol: Computed tomography of the head without contrast. Radiation optimization: All CT scans at this facility use at least one of these dose optimization techniques: automated exposure control; mA and/or kV adjustment per patient size (includes targeted exams where dose is matched to clinical indication); or iterative reconstruction. COMPARISON: CT HEAD of 12/24/18 FINDINGS: Brain: No acute hemorrhage. No cerebral edema. No mass effect. Age-related atrophic changes are noted. Periventricular and subcortical areas of low attenuation, compatible with chronic small vessel microischemic changes. Cerebral ventricles: No ventriculomegaly. Paranasal sinuses: Visualized sinuses are unremarkable. No air-fluid levels. Mastoid air cells: Visualized mastoid air cells are well aerated. Bones/joints: Unremarkable. No acute fracture. Soft tissues: Unremarkable. IMPRESSION: No acute intracranial pathology is appreciated. Chronic atrophic and microischemic changes. The brain had a similar appearance in 2018. Electronically signed by: Anusha Alba On 09/01/2020 22:08:55 PM
--- NOTE | 2020-09-01 22:46 | REPVR ---
PROCEDURE INFORMATION: Exam: CT Abdomen And Pelvis Without Contrast Exam date and time: 09/01/2020 9:49 PM Age: 60 years old Clinical indication: Abdominal pain; Flank; Lower; Additional info: Michael, flank pain TECHNIQUE: Imaging protocol: Computed tomography of the abdomen and pelvis without contrast. Radiation optimization: All CT scans at this facility use at least one of these dose optimization techniques: automated exposure control; mA and/or kV adjustment per patient size (includes targeted exams where dose is matched to clinical indication); or iterative reconstruction. COMPARISON: CT ABD PELVIS WITH CONTRAST 02/01/2017 3:32 PM FINDINGS: Lungs: Atelectasis at bilateral lung bases. Liver: Normal. No mass. Gallbladder and bile ducts: Normal. No calcified stones. No ductal dilation. Pancreas: Normal. No ductal dilation. Spleen: Normal. No splenomegaly. Adrenal glands: Normal. No mass. Kidneys and ureters: 7 mm cyst in the midpole of left kidney. 3 mm nonobstructing calculus in the midpole of right kidney. Stomach and bowel: Diverticulosis of the sigmoid colon. Appendix: No evidence of appendicitis. Intraperitoneal space: Unremarkable. No free air. No significant fluid collection. Vasculature: Atherosclerotic calcification of the abdominal aorta and bilateral iliac vessels. Lymph nodes: Unremarkable. No enlarged lymph nodes. Urinary bladder: Unremarkable as visualized. Reproductive: Unremarkable as visualized. Bones/joints: Grade 1 anterolisthesis of L4 over L5 and grade 1 retrolisthesis of L5 over S1. Multilevel degenerative disc disease. Soft tissues: Diastasis of the rectus abdominus muscle. IMPRESSION: No acute abdominal or pelvic abnormality. COMMENTS: Consistent with the [employer]'s Incidental Findings Committee white paper (J Am Melissa Radiol 2018): Any incidental renal lesion less than 1 cm or classified as too small to characterize, or any incidental cystic renal lesion characterized as simple-appearing, is likely benign. No follow-up imaging is recommended for these lesions per consensus recommendations based on imaging criteria. Electronically signed by: Tang Lobo On 09/01/2020 22:46:18 PM
--- NOTE | 2020-09-01 22:55 | ECGEPIP ---
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
[2020-09-02 00:58] LABS: AMPHETAMINES LEVEL URINE NEGATIVE (NEGATIVE); BARBITURATES URINE NEGATIVE (NEGATIVE); BENZODIAZEPINES URINE NEGATIVE (NEGATIVE); CANNABINOIDS URINE POSITIVE (NEGATIVE); COCAINE METABOLITE URINE NEGATIVE (NEGATIVE); METHADONE URINE NEGATIVE (NEGATIVE); OPIATES URINE NEGATIVE (NEGATIVE); PHENCYCLIDINE URINE NEGATIVE (NEGATIVE)
[2020-09-02] MEDS ORDERED: NS 1,000 ML IV ONE (01:10)
[2020-09-02] MEDS ORDERED: CLON0.5T17 PO (01:35)
[2020-09-02] MEDS ORDERED: LOPR1TAB6 PO (01:35)
[2020-09-02] MEDS ORDERED: ACET650T61 PO (01:35)
[2020-09-02] MEDS ORDERED: ATOR1TAB21 PO (01:35)
[2020-09-02] MEDS ORDERED: EXCETAB33 PO (01:35)
[2020-09-02] MEDS ORDERED: GABA-282 PO (01:35)
[2020-09-02] MEDS ORDERED: CELE40TA PO (01:35)
[2020-09-02] MEDS ORDERED: AMLO1TAB24 PO (01:35)
[2020-09-02] MEDS ORDERED: ONDANSETRON 4MG/2ML VIAL IV PRN (01:45)
[2020-09-02] MEDS ORDERED: MAALOX 30 ML SUSP *UDC PO PRN (01:45)
[2020-09-02] MEDS ORDERED: EXCEDRIN MIGRAINE TABLET PO PRN (01:45)
[2020-09-02] MEDS ORDERED: MOM 30ML SUSPENSION UDC PO PRN (01:45)
[2020-09-02] MEDS ORDERED: ACETAMINOPHEN TAB 650MG DOSE (2X325MG) PO PRN (01:45)
[2020-09-02 02:09] LABS: RSV AMPLIFICATION NEGATIVE (NEGATIVE)
--- NOTE | 2020-09-02 02:15 | HPEPDOC ---
[facility] Medical History & Physical Date of Admission Sep 02, 2020 Date of Service: Sep 02, 2020 Attending Physician: KAIA CHAN MD History and Physical CHIEF COMPLAINT: [60 y/o female c/o dizziness] HISTORY OF PRESENT ILLNESS: [This is a 60 y/o female with a pmh of brain aneurysm, migraines, hld, htn, substance abuse who presents to our ed via ems after an episode of dizziness. Patient is a rather poor historian of the events of tonight. Patient states that she was walking down the street and suddenly began to experience dizziness. Patient states that what happens next is that she remembers being on a table and not feeling well. Patient states that she did not fall, that she simply did not feel well. Patient states that as of my exam, she feels better and is denying fever, chills, chest pain, sob, chest tightness, n/v/d/c, lower leg edema. Of note, patient found to have nhung upon workup in the ed. Current cr is 1.77, baseline of 1.] PAST MEDICAL HISTORY: 1. [See HPI PAST SURGICAL HISTORY: 1. [Breast biopsy]. 2. [ x4]. SOCIAL HISTORY: Tobacco use:[Current smoker] ETOH: [Denies] Illicit drug use: [Admits to smoking marijuana] FAMILY HISTORY: Reviewed - none pertinent ALLERGIES: Please see below. REVIEW OF SYSTEMS: CONSTITUTIONAL: [See HPI]. HEENT: [Denies uri sx]. CARDIOVASCULAR: [Denies chest pain, palpitations]. RESPIRATORY: [Denies sob, cough]. GASTROINTESTINAL: [See HPI]. GENITOURINARY: [Denies dysuria]. SKIN: [Denies rash]. MUSCULOSKELETAL: [Denies acute joint/back pain]. NEUROLOGICAL: [Denies syncope, paresthesias]. ENDOCRINE: [Denies hx of DM]. HEMATOLOGIC/LYMPHATIC: [Denies easy bruising]. HOME MEDICATIONS: Please see below. PHYSICAL EXAMINATION: VITAL SIGNS: Please see below. GENERAL APPEARANCE: [This is a wn/wd 60 y/o female who appears to be in no acute distress]. HEENT: [No mass or lesion. EOMI. No scleral icterus. Nares patent. Oral mucosa moist]. CARDIOVASCULAR: [Regular rate, rhythm. No murmurs, rubs, gallops]. LUNGS: [Good air flow b/l. No wheezing, rales, rhonchi]. ABDOMEN: [Soft, nontender]. MUSCULOSKELETAL: [No joint deformity]. EXTREMITIES: [No peripheral edema. No overlying skin changes. Pulses intact.]. NEUROLOGICAL: [Sensation intact. Patient moves all fours freely. Speech clear. A+Ox3. CN III-IX grossly intact. No focal deficits]. PSYCHIATRIC: [Mood and affect appear appropriate.]. LABORATORY DATA: See below. IMAGING: [Head CT: FINDINGS: Brain: No acute hemorrhage. No cerebral edema. No mass effect. Age-related atrophic changes are noted. Periventricular and subcortical areas of low attenuation, compatible with chronic small vessel microischemic changes. Cerebral ventricles: No ventriculomegaly. Paranasal sinuses: Visualized sinuses are unremarkable. No air-fluid levels. Mastoid air cells: Visualized mastoid air cells are well aerated. Bones/joints: Unremarkable. No acute fracture. Soft tissues: Unremarkable. IMPRESSION: No acute intracranial pathology is appreciated. Chronic atrophic and microischemic changes. The brain had a similar appearance in 2018. CT Abd/pelvis: FINDINGS: Lungs: Atelectasis at bilateral lung bases. Liver: Normal. No mass. Gallbladder and bile ducts: Normal. No calcified stones. No ductal dilation. Pancreas: Normal. No ductal dilation. Spleen: Normal. No splenomegaly. Adrenal glands: Normal. No mass. Kidneys and ureters: 7 mm cyst in the midpole of left kidney. 3 mm nonobstructing calculus in the midpole of right kidney. Stomach and bowel: Diverticulosis of the sigmoid colon. Appendix: No evidence of appendicitis. Intraperitoneal space: Unremarkable. No free air. No significant fluid collection. Vasculature: Atherosclerotic calcification of the abdominal aorta and bilateral iliac vessels. Lymph nodes: Unremarkable. No enlarged lymph nodes. Urinary bladder: Unremarkable as visualized. Reproductive: Unremarkable as visualized. Bones/joints: Grade 1 anterolisthesis of L4 over L5 and grade 1 retrolisthesis of L5 over S1. Multilevel degenerative disc disease. Soft tissues: Diastasis of the rectus abdominus muscle. IMPRESSION: No acute abdominal or pelvic abnormality.] MICROBIOLOGY: Please see below. ASSESSMENT: [This is a 60 y/o female with a pmh of brain aneurysm, migraines, hld, htn, substance abuse who presents to our ed via ems after an episode of dizziness. Of note, patient found to have nhung upon workup in the ed. Current cr is 1.77, baseline of 1.]. . PLAN: 1. [NHUNG - unclear etiology. likely 2/2 to poor oral intake in the setting of substance use - Current cr is 1.77, baseline of 1. - patient received fluid boluses in the ed - will continue ivf on the floor - renal us, urine electrolytes - admit to med surg under obs 2. Dizziness - Most likely secondary to marijuana use. CT head imaging is normal, patient is having no neuro type symptoms at this time. 3. HLD - continue atorvastatin 4. HTN - continue metoprolol, amlodipine 5. Chronic back pain - gabapentin 6. Depression - continue celexa DVT prophylaxis - Teds and SCDs]. Vital Signs Vital Signs Date Time Temp Pulse Resp B/P (MAP) Pulse Ox O2 Delivery O2 Flow Rate FiO2 09/02/20 00:15 63 108/66 (80) 100 Nasal Cannula 2.0 09/01/20 19:33 97.5 14 Laboratory Data Labs 24H Laboratory Tests 2 09/01/20 19:49: Immature Granulocyte % (Auto) 0.4, Neutrophils (%) (Auto) 56.6, Lymphocytes (%) (Auto) 30.6, Monocytes (%) (Auto) 8.8H, Eosinophils (%) (Auto) 2.6, Basophils (%) (Auto) 1.0, Neutrophils # (Auto) 6.3, Lymphocytes # (Auto) 3.4, Monocytes # (Auto) 1.0H, Eosinophils # (Auto) 0.3, Basophils # (Auto) 0.1, Nucleated Red Blood Cells % (auto) 0.0, Anion Gap 9, Glomerular Filtration Rate 31.2L, Calcium Level 9.0, Total Bilirubin 0.4, Direct Bilirubin 0.1, Aspartate Amino Transf (AST/SGOT) 10, Alanine Aminotransferase (ALT/SGPT) 15, Alkaline Phosphatase 134H, Total Creatine Kinase 45, Total Protein 6.5, Albumin 3.4, Albumin/Globulin Ratio 1.1L, Thyroid Stimulating Hormone (TSH) 1.230, Salicylates Level 10.4, Acetaminophen Level 2.5L, Ethyl Alcohol Level < 0.003 09/01/20 19:55: Bedside Glucose (Misc Panel) 114 09/02/20 00:24: Urine Color EDIS, Urine Appearance HAZY, Urine pH 5.0, Urine Specific [place] 1.030, Urine Protein 1+H, Urine Glucose (UA) NEGATIVE, Urine Ketones TRACEH, Urine Blood NEGATIVE, Urine Nitrite NEGATIVE, Urine Bilirubin 1+H, Urine Urobilinogen 4.0H, Urine Leukocyte Esterase NEGATIVE, Urine WBC (Auto) 2, Urine RBC (Auto) 3, Urine Hyaline Casts (Auto) 10, Urine Bacteria (Auto) NEGATIVE, Urine Squamous Epithelial Cells 1, Urine Mucus (Auto) SMALL, Urine Sperm (Auto) , Urine Opiates Screen NEGATIVE, Urine Methadone Screen NEGATIVE, Urine Barbiturates Screen NEGATIVE, Urine Phencyclidine Screen NEGATIVE, Urine Amphetamines Screen NEGATIVE, Urine Benzodiazepines Screen NEGATIVE, Urine Cocaine Metabolite Screen NEGATIVE, Urine Cannabinoids Screen POSITIVEH 09/02/20 01:18: CBC/BMP Laboratory Tests 09/01/20 19:49 Home Medications Scheduled Acetaminophen (Tylenol Arthritis) 650 Mg Tablet.er, 650 MG PO Q8H Amlodipine Besylate (Amlodipine Besylate) 5 Mg Tablet, 5 MG PO DAILY Atorvastatin Calcium (Atorvastatin Calcium) 20 Mg Tablet, 20 MG PO QHS Citalopram Hydrobromide (Celexa) 40 Mg Tablet, 40 MG PO DAILY Gabapentin (Gabapentin) 300 Mg Capsule, 300 MG PO TID Metoprolol Tartrate (Lopressor) 50 Mg Tablet, 50 MG PO BID Scheduled PRN Aspirin/Acetaminophen/Caffeine (Excedrin Migraine Caplet) 1 Each Tablet, 2 TAB PO DAILY PRN for HEADACHE Clonazepam (Clonazepam) 0.5 Mg Tab.rapdis, 0.5 MG PO DAILY PRN for ANXIETY Allergies Coded Allergies: No Known Allergies (Unverified , 08/09/18) A-FIB/CHADSVASC A-FIB History Current/History of A-Fib/PAF?: No ERNESTO CASTELLANO Sep 02, 2020 02:15
--- NOTE | 2020-09-02 03:29 | REPVR ---
PROCEDURE INFORMATION: Exam: US Retroperitoneal Limited, Kidneys Exam date and time: 09/02/20 (2:50am) Age: 60 years old Clinical indication: NHUNG. Abnormal renal function tests. TECHNIQUE: Imaging protocol: Real-time ultrasound of the retroperitoneum with image documentation. Examination was focused on the kidneys. COMPARISON: CT ABDOMEN PELVIS of 09/01/20 FINDINGS: Right kidney: No stones. No hydronephrosis. Measures 11.2 cm in length. Hyperechoic texture. Left kidney: No stones. No hydronephrosis. Measures 11.3 cm in length. Urinary bladder: Unremarkable. IMPRESSION: No acute findings. (small non-obstructing stone (3 mm size) at the midpole of the right kidney, seen on recent CT scan) Electronically signed by: Anusha Alba On 09/02/2020 03:28:48 AM
[2020-09-02 03:35] VITALS: BP 142/87
[2020-09-02] MEDS: NS 1,000 ML IV SCH ×2 (04:00→11:42)
[2020-09-02] MEDS: METOPROLOL TART 50 MG TAB PO SCH ×2 (04:10→09:19)
[2020-09-02] MEDS: GABAPENTIN 300 MG CAP PO SCH ×2 (04:10→09:19)
[2020-09-02 06:00] VITALS: BP 125/72
[2020-09-02 06:09] LABS: HEMATOCRIT 39.9 % (36.0-47.0); HEMOGLOBIN 12.8 g/dl (12.0-15.5); MEAN CORPUSCULAR HEMOGLOBIN 30.5 pg (27.0-33.0); MEAN CORPUSCULAR HGB CONC 32.1 g/dl (32.0-36.5); PLATELET COUNT, AUTOMATED 353 10^3/uL (150-450)
[2020-09-02 06:31] LABS: BLOOD UREA NITROGEN 34 MG/DL (7-18); CALCIUM LEVEL 8.8 MG/DL (8.8-10.2); CARBON DIOXIDE LEVEL 22 MEQ/L (21-32); CHLORIDE LEVEL 116 MEQ/L (98-107); CREATININE FOR GFR 0.99 MG/DL (0.55-1.30); GLOMERULAR FILTRATION RATE > 60.0 (>45); GLUCOSE, FASTING 120 MG/DL (70-100); MAGNESIUM LEVEL 2.5 MG/DL (1.8-2.4); POTASSIUM SERUM 3.5 MEQ/L (3.5-5.1); SODIUM LEVEL 144 MEQ/L (136-145)
[2020-09-02] MEDS ORDERED: amLODIPine 5 MG TAB PO SCH (09:00)
[2020-09-02] MEDS ORDERED: CitaloPRAM (CeleXA) 20 MG TAB PO SCH (09:00)
[2020-09-02 09:19] VITALS: BP 143/92
--- NOTE | 2020-09-02 12:55 | REP ---
INDICATION: Syncope. COMPARISON: 09/15/2017 the latest prior TECHNIQUE: Portable FINDINGS: The technique utilized in obtaining the radiograph has magnified the cardiac silhouette and accentuated the interstitial markings. The superior mediastinal structures are midline. The cardiac silhouette is unremarkable in size, shape, and position. The diaphragmatic surfaces of the lungs are regular, and the costophrenic angles are clear. The pulmonary post are clear. The imaged osseous structures are intact. There is an unchanged incidental old calcified infrahilar granuloma on the left. IMPRESSION: There is no acute cardiopulmonary disease. <Electronically signed by [place] > 09/02/20 [id number]
--- NOTE | 2020-09-02 13:16 | REPVR ---
PROCEDURE INFORMATION: Exam: MR Head Without Contrast Exam date and time: 09/02/2020 12:45 PM Age: 60 years old Clinical indication: Dizziness TECHNIQUE: Imaging protocol: MR of the head without contrast. COMPARISON: CT Head without contrast 09/01/2020 9:08 PM FINDINGS: Brain: There is no extra-axial collection or intra-axial mass. Mild diffuse volume loss is within the range of normal for patient age. There is increased T2/FLAIR hyperintensity within the periventricular and subcortical white matter and substance of the dorsal katharine, nonspecific but typically small-vessel ischemia in this age group. There is no diffusion restriction. Cerebral ventricles: Normal. No ventriculomegaly. Bones/joints: Unremarkable. Paranasal sinuses: There is mild mucosal thickening along the floors of the maxillary sinuses. Mastoid air cells: Normal as visualized. No mastoid effusion. Orbital cavity: Unremarkable. Soft tissues: Unremarkable. IMPRESSION: No acute findings. Electronically signed by: Edwina Metzger On 09/02/2020 13:15:41 PM
--- NOTE | 2020-09-02 14:07 | DS.PDOC ---
Discharge Summary General Date of Admission Sep 01, 2020 at 19:17 Date of Discharge 09/02/2020 Discharge Summary PROCEDURES PERFORMED DURING STAY: [None]. ADMITTING DIAGNOSES / DISCHARGE DIAGNOSES: s/p NHUNG - likely 2/2 pre-renal etiology s/p Dizziness; possibly 2/2 marijuana use DLP HTN Chronic back pain Depression DVT prophylaxis COMPLICATIONS/CHIEF COMPLAINT: Dizziness HISTORY OF PRESENT ILLNESS: Patient is a 6-year-old female with a PMHx of Brain aneurysm, Migraines, HTN, DLP, Substance abuse who presented to [facility] ER with dizziness. Patient reports that she had smoked marijuana and began experiencing dizziness lasted several hours that prompted her to come to the emergency room for further evaluation. Upon arrival, patient had resolution of her dizziness and she was admitted for further workup. Patient was seen and examined at the bedside. Currently, she denies any lightheadedness or dizziness. Denies any shortness of breath, cough, chest pain, palpitations, nausea, vomiting, abdominal pain, diarrhea, or urinary discomfort. Patient has worked with physical therapy today and has been cleared for discharge home. HOSPITAL COURSE: s/p NHUNG - likely 2/2 pre-renal etiology - Cr has improved back to baseline - Imaging noted above - Patient's renal function is improved with IV fluid hydration - Will avoid nephrotoxic medications - Will have outpatient follow-up with primary care provider within the next 7 days s/p Dizziness; possibly 2/2 marijuana use - Patient reports her dizziness had resolved upon arrival to the emergency room - Patient is fully oriented to person, place and time - Physical does not reveal any focal neurologic deficits - Imaging via CT scan and MRI have been negative - Will have outpatient follow-up with primary care provider within the next 7 days DLP - c/w Atorvastatin HTN - c/w metoprolol, amlodipine Chronic back pain - c/w gabapentin Depression - c/w Citalopram DVT prophylaxis - c/w TEDS / Sequentials DISCHARGE MEDICATIONS: Please see below. ALLERGIES: Please see below. PHYSICAL EXAMINATION ON DISCHARGE: Vitals (See below) General: Lying in bed, appears comfortable, AAOx3 HEENT: NC, AT CVS: RRR, +S1S2 Lungs: Fair air entry b/l, -w/r/r Abdomen: Soft, nondistended, nontender Extremities: No evidence of edema, - Calf tenderness Neuro: 5 out of 5 strength of upper and lower extremities bilaterally. Cranial nerves II through XII grossly intact LABORATORY DATA: Please see below. IMAGING: CT head 09/01: No acute intracranial pathology is appreciated. Chronic atrophic and microischemic changes. The brain had a similar appearance in 2018. CT abdomen / pelvis 09/01: No acute abdominal or pelvic abnormality. Renal US 09/02: No acute findings. (small non-obstructing stone (3 mm size) at the midpole of the right kidney, seen on recent CT scan) Brain MRI 09/02: No acute findings. CXR 09/02: There is no acute cardiopulmonary disease. ACTIVITY: [As tolerated]. DISCHARGE PLAN: Follow-up with primary care provider within the next 7 days Remain compliant with treatment plan and medications Return to the ER if you experience any problems DISPOSITION: Home DISCHARGE CONDITION: [Stable]. TIME SPENT ON DISCHARGE: 25 minutes. Vital Signs/I&Os Vital Signs Date Time Temp Pulse Resp B/P (MAP) Pulse Ox O2 Delivery O2 Flow Rate FiO2 09/02/20 09:19 77 143/92 09/02/20 06:00 97.9 20 99 Room Air 09/02/20 03:15 2.0 I&O- Last 24 Hours up to 6 AM 09/02/20 06:00 Intake Total 2000 ml Output Total 150 ml Balance 1850 ml Laboratory Data Labs 24H Laboratory Tests 2 09/01/20 19:49: Immature Granulocyte % (Auto) 0.4, Neutrophils (%) (Auto) 56.6, Lymphocytes (%) (Auto) 30.6, Monocytes (%) (Auto) 8.8H, Eosinophils (%) (Auto) 2.6, Basophils (%) (Auto) 1.0, Neutrophils # (Auto) 6.3, Lymphocytes # (Auto) 3.4, Monocytes # (Auto) 1.0H, Eosinophils # (Auto) 0.3, Basophils # (Auto) 0.1, Nucleated Red Blood Cells % (auto) 0.0, Anion Gap 9, Glomerular Filtration Rate 31.2L, Calcium Level 9.0, Total Bilirubin 0.4, Direct Bilirubin 0.1, Aspartate Amino Transf (AST/SGOT) 10, Alanine Aminotransferase (ALT/SGPT) 15, Alkaline Phosphatase 134H, Total Creatine Kinase 45, Total Protein 6.5, Albumin 3.4, Albumin/Globulin Ratio 1.1L, Thyroid Stimulating Hormone (TSH) 1.230, Salicylates Level 10.4, Acetaminophen Level 2.5L, Ethyl Alcohol Level < 0.003 09/01/20 19:55: Bedside Glucose (Misc Panel) 114 09/02/20 00:24: Urine Color EDIS, Urine Appearance HAZY, Urine pH 5.0, Urine Specific [place] 1.030, Urine Protein 1+H, Urine Glucose (UA) NEGATIVE, Urine Ketones TRACEH, Urine Blood NEGATIVE, Urine Nitrite NEGATIVE, Urine Bilirubin 1+H, Urine Urobilinogen 4.0H, Urine Leukocyte Esterase NEGATIVE, Urine WBC (Auto) 2, Urine RBC (Auto) 3, Urine Hyaline Casts (Auto) 10, Urine Bacteria (Auto) NEGATIVE, Urine Squamous Epithelial Cells 1, Urine Mucus (Auto) SMALL, Urine Sperm (Auto) , Urine Opiates Screen NEGATIVE, Urine Methadone Screen NEGATIVE, Urine Barbiturates Screen NEGATIVE, Urine Phencyclidine Screen NEGATIVE, Urine Amphetamines Screen NEGATIVE, Urine Benzodiazepines Screen NEGATIVE, Urine Cocaine Metabolite Screen NEGATIVE, Urine Cannabinoids Screen POSITIVEH 09/02/20 01:18: Coronavirus (COVID-19)(PCR) NEGATIVE, Influenza Type A (RT-PCR) NEGATIVE, I nfluenza Type B (RT-PCR) NEGATIVE, Respiratory Syncytial Virus (PCR) NEGATIVE 09/02/20 05:45: Nucleated Red Blood Cells % (auto) 0.0, Anion Gap 6L, Glomerular Filtration Rate > 60.0, Calcium Level 8.8, Magnesium Level 2.5H 09/02/20 11:35: Methicillin-Resist S.aureus DNA PCR NOT DETECTED CBC/BMP Laboratory Tests 09/01/20 19:49 09/02/20 05:45 FSBS Laboratory Tests Test 09/01/20 19:55 Range/Units Bedside Glucose (Misc Panel) 114 80-115 MG/DL Discharge Medications Scheduled Acetaminophen (Tylenol Arthritis) 650 Mg Tablet.er, 650 MG PO Q8H, (Reported) Amlodipine Besylate (Amlodipine Besylate) 5 Mg Tablet, 5 MG PO DAILY, (Reported) Atorvastatin Calcium (Atorvastatin Calcium) 20 Mg Tablet, 20 MG PO QHS, ( Reported) Citalopram Hydrobromide (Celexa) 40 Mg Tablet, 40 MG PO DAILY, (Reported) Gabapentin (Gabapentin) 300 Mg Capsule, 300 MG PO TID, (Reported) Metoprolol Tartrate (Lopressor) 50 Mg Tablet, 50 MG PO BID, (Reported) Scheduled PRN Aspirin/Acetaminophen/Caffeine (Excedrin Migraine Caplet) 1 Each Tablet, 2 TAB PO DAILY PRN for HEADACHE, (Reported) Clonazepam (Clonazepam) 0.5 Mg Tab.rapdis, 0.5 MG PO DAILY PRN for ANXIETY, (Reported) Allergies Coded Allergies: No Known Allergies (Unverified , 08/09/18) CARTER KUMAR MD Sep 02, 2020 14:07
== END 2020-09-02 13:54 | disposition home or self-care (01) ==
LOC: M ED 19:16 → EEVIPCON 19:17 → M ED INP 19:17 → ENRESERVDT 09-02 02:22 → ENRESERVTM 09-02 02:22 → M MSPAV 09-02 03:34
PROVIDERS: ADMIT Family Medicine; ATTEND Internal Medicine
DX: N17.9 Acute kidney failure, unspecified (principal); R42 Dizziness and giddiness; G89.29 Other chronic pain; F12.10 Cannabis abuse, uncomplicated; E78.49 Other hyperlipidemia; I10 Essential (primary) hypertension; F32.9 Major depressive disorder, single episode, unspecified; G43.909 Migraine, unspecified, not intractable, without status migrainosus; F17.218 Nicotine dependence, cigarettes, with other nicotine-induced disorders; Z79.899 Other long term (current) drug therapy
CPT/HCPCS: 36415; 70450; 70551; 71045; 74176; 76775; 80048; 80076; 80143; 80307; 81001; 82077; 82550; 83735; 84443; 85025; 85027; 87631; 87641; 93005; 93041; 94760; 96360; 96361; 97161; 99285; G0378

== ENCOUNTER 2020-11-16 02:44 | Inpatient (IN) | payer MEDICARE, OTHER ==
[~2020-11-16] VITALS: Ht 172.7 cm; Wt 96.0 kg
[~2020-11-16 02:44] MED LIST changes: +AMLO1TAB24; +AMLO1TAB24 PO; +ATOR1TAB21; +CITA20TA6; +CLON0.5T17 PO; +CLON0.5T2; -DOXY100C PO; +DOXY100C3 PO; +LOPR1TAB6 PO
[2020-11-16] MEDS ORDERED: ONDANSETRON 4MG/2ML VIAL IV ONE (03:50)
[2020-11-16] MEDS: MORPHINE 4 MG/ML 1ML VIAL/SYRINGE (J2270) IV PRN ×2 (04:30→05:12)
[2020-11-16 04:43] LABS: BASO # 0.1 10^3/uL (0.0-0.2); BASO % 0.6 % (0.0-1.0); EOS # 0.9 10^3/uL (0.0-0.5); EOS % 6.3 % (0.0-3.0); HEMATOCRIT 43.4 % (36.0-47.0); HEMOGLOBIN 14.1 g/dl (12.0-15.5); LYMPH # 2.7 10^3/uL (1.5-5.0); LYMPH % 18.9 % (24.0-44.0); MEAN CORPUSCULAR HEMOGLOBIN 30.6 pg (27.0-33.0); MEAN CORPUSCULAR HGB CONC 32.5 g/dl (32.0-36.5); MEAN CORPUSCULAR VOLUME 94.1 fl (80.0-96.0); MONO # 1.2 10^3/uL (0.0-0.8); MONO % 8.1 % (2.0-8.0); NEUTROPHILS # 9.3 10^3/uL (1.5-8.5); NEUTROPHILS % 65.7 % (36.0-66.0); PLATELET COUNT, AUTOMATED 340 10^3/uL (150-450); RED BLOOD COUNT 4.61 10^6/uL (4.00-5.40); WHITE BLOOD COUNT 14.1 10^3/uL (4.0-10.0)
[2020-11-16 04:54] LABS: INR 0.84; PROTHROMBIN TIME 11.9 SECONDS (12.7-14.5)
[2020-11-16 05:02] LABS: BLOOD UREA NITROGEN 30 MG/DL (7-18); CALCIUM LEVEL 8.9 MG/DL (8.8-10.2); CARBON DIOXIDE LEVEL 25 MEQ/L (21-32); CHLORIDE LEVEL 114 MEQ/L (98-107); CREATININE FOR GFR 0.84 MG/DL (0.55-1.30); GLOMERULAR FILTRATION RATE > 60.0 (>45); GLUCOSE, FASTING 99 MG/DL (70-100); SODIUM LEVEL 145 MEQ/L (136-145)
[2020-11-16 05:19] LABS: RSV AMPLIFICATION NEGATIVE (NEGATIVE)
--- NOTE | 2020-11-16 06:18 | REPVR ---
PROCEDURE INFORMATION: Exam: XR Right Hip Exam date and time: 11/16/2020 3:41 AM Age: 60 years old Clinical indication: Other: Shortened leg, et. Rotation; Additional info: Shortened leg, ext. Rotation TECHNIQUE: Imaging protocol: XR Right hip. Views: 2 or 3 views hip with pelvis when performed. COMPARISON: CT ABD PELVIS W/O CONTRAST 09/01/2020 9:37 PM FINDINGS: Bones/joints: There is an acute intertrochanteric fracture of the right femur. There is medial displacement of the fracture fragment which contains the lesser trochanter. There is mild distraction at the greater trochanter fracture site, with the greater trochanter fragment slightly medially displaced as well. The right hip joint space is maintained. There are minimal osteophytes at the right hip. There is a healed fracture deformity of the left inferior pubic ramus, also visible on the prior CT scan. Soft tissues: Unremarkable. IMPRESSION: Acute, mildly displaced intertrochanteric fracture of the right femur. Electronically signed by: Toya Sharma On 11/16/2020 06:17:18 AM
--- NOTE | 2020-11-16 06:19 | REPVR ---
PROCEDURE INFORMATION: Exam: XR Chest Exam date and time: 11/16/2020 4:54 AM Age: 60 years old Clinical indication: Other: Preop TECHNIQUE: Imaging protocol: XR of the chest. Views: 1 view. COMPARISON: DE PORTABLE CHEST X-RAY 09/02/2020 12:47 PM FINDINGS: Limitations: The patient is rotated. Lungs: The lungs are clear. Pleural spaces: No pleural effusions or pneumothorax identified. Heart/Mediastinum: The heart appears mildly enlarged but this may be due to accentuation related to the projection. Bones/joints: Unremarkable. IMPRESSION: No evidence of acute pleural or parenchymal disease. Electronically signed by: Toya Sharma On 11/16/2020 06:18:39 AM
[2020-11-16] MEDS ORDERED: MORPHINE 4 MG/ML 1ML VIAL/SYRINGE (J2270) IV PRN ×3 (06:30→14:45)
[2020-11-16] MEDS: HYDROMORPHONE HCL 0.5 MG/ 0.5 ML SYRINGE (J1170 PER 1) IV PRN ×2 (06:40→07:19)
[2020-11-16] MEDS ORDERED: GABA600T4 PO (07:02)
[2020-11-16] MEDS ORDERED: HOME MED LIST COMPLETE! XX SCH (07:05)
[2020-11-16] MEDS ORDERED: D5W/0.9% SODIUM CHLORIDE 1,000 ML IV SCH (09:15)
[2020-11-16] MEDS ORDERED: ONDANSETRON 4MG/2ML VIAL IV PRN ×3 (09:15→14:45)
--- NOTE | 2020-11-16 10:40 | CR.PDOC ---
General Date of Consultation: Nov 16, 2020 Attending Physician: JACQUIE BUSTILLOS MD Consultation REASON FOR CONSULTATION/CHIEF COMPLAINT: [Right intertrochanteric hip fracture after fall from standing height.]. HISTORY OF PRESENT ILLNESS: [60-year-old female with past medical history of Migraines, HTN, DLP, Substance abuse, Chronic back pain, Depression, panic disorder, anemia, cervical and lumber spondylosis, occipital neuralgia, brain aneurysm was trying to get out of bed early this morning to go to the bathroom and fell on her right side and started having severe right-sided hip pain which she rated as 10/10 sharp aching in nature with right leg shorter than the left. She was brought to the ED and found to have a mildly displaced right femoral intertrochanteric fracture. No previous hip pain. Fall from a standing height. Denies any other pain. ]. ALLERGIES: Please see below. HOME MEDICATIONS: Please see below. Past Medical History Medical History Brain aneurysm, Migraines, HTN, DLP, Substance abuse, Chronic back pain, Depression, panic disorder, anemia, cervical and lumber spondylosis, occipital neuralgia Surgical History x 4 Family History FATHER: , LUNG CANCER MOTHER: , SCIZOPHRENIA SIBLINGS: SCIZOPHRENIA(SISTER) HODGKIN'S DISEASE(BROTHER) PATERNAL GRAND MOTHER: , BREAST CANCER Social History * Smoker: current smoker Drugs: marijuana PHYSICAL EXAMINATION: VITAL SIGNS: Please see below. Patient resting comfortably in the stretcher. Mild distress. Identifies right anterior hip pain. Alert and oriented X 3 Isolated right hip pain denies any neck shoulder elbow wrist pain. Right leg is shortened externally rotated Positive logroll right hip Overlying skin is normal No pain with palpation of the knee and ankle on the right side Denies any sensory deficits right lower extremity SILT Gross motor function is maintained, limited exam due to pain in the hip. Grade 1 pulse of DP and TP LABORATORY DATA: Please see below. ASSESSMENT/PLAN: 1. Right intertrochanteric hip fracture. Patient consented for right cephalomedullary nail and blood transfusion if needed. Discussed at length risk and benefits of surgery. Risks include infection, nonunion, malunion, right hip pain, knee pain, DVT, PE, possible need for revision surgery. Patient understands these risk factors do not include all risk factors. 2. Patient n.p.o. since midnight last night. Not on any blood thinners. Will attempt to schedule surgery when medically optimized. Vital Signs/I&O Vital Signs Date Time Temp Pulse Resp B/P (MAP) Pulse Ox O2 Delivery O2 Flow Rate FiO2 11/16/20 09:40 20 11/16/20 07:31 98.4 64 105/50 (68) 95 Room Air Laboratory Data Labs 24H Laboratory Tests 2 11/16/20 04:32: Immature Granulocyte % (Auto) 0.4, Neutrophils (%) (Auto) 65.7, Lymphocytes (%) (Auto) 18.9L, Monocytes (%) (Auto) 8.1H, Eosinophils (%) (Auto) 6.3H, Basophils (%) (Auto) 0.6, Neutrophils # (Auto) 9.3H, Lymphocytes # (Auto) 2.7, Monocytes # (Auto) 1.2H, Eosinophils # (Auto) 0.9H, Basophils # (Auto) 0.1, Nucleated Red Blood Cells % (auto) 0.0, Prothrombin Time 11.9, Prothromb Time International Ratio 0.84, Activated Partial Thromboplast Time 25.0, Anion Gap 6L, Glomerular Filtration Rate > 60.0, Calcium Level 8.9, Coronavirus (COVID-19)(PCR) NEGATIVE, Influenza Type A (RT-PCR) NEGATIVE, Influenza Type B (RT-PCR) NEGATIVE, Respiratory Syncytial Virus (PCR) NEGATIVE CBC/BMP Laboratory Tests 11/16/20 04:32 Allergies Coded Allergies: No Known Allergies (Unverified , 08/09/18) Home Medications Scheduled Acetaminophen (Tylenol Arthritis) 650 Mg Tablet.er, 650 MG PO Q8H, (Reported) Amlodipine Besylate (Amlodipine Besylate) 5 Mg Tablet, 5 MG PO DAILY, (Reported) Atorvastatin Calcium (Atorvastatin Calcium) 20 Mg Tablet, 20 MG PO QHS, (Reported) Citalopram Hydrobromide (Celexa) 40 Mg Tablet, 40 MG PO DAILY, (Reported) Gabapentin (Gabapentin) 600 Mg Tablet, 600 MG PO BID, (Reported) Metoprolol Tartrate (Lopressor) 50 Mg Tablet, 50 MG PO BID, (Reported) Scheduled PRN Aspirin/Acetaminophen/Caffeine (Excedrin Migraine Caplet) 1 Each Tablet, 2 TAB PO DAILY PRN for HEADACHE, (Reported) Clonazepam (Clonazepam) 0.5 Mg Tab.rapdis, 0.5 MG PO DAILY PRN for ANXIETY, (Reported) JACQUIE BUSTILLOS MD Nov 16, 2020 10:40
[2020-11-16] MEDS ORDERED: MIDAZOLAM INJ 2MG/2ML VIAL (J2250 PER 1MG) As Ordered ONE (11:17)
[2020-11-16] MEDS ORDERED: ROCURONIUM BROMIDE 50 MG/5 ML VIAL As Ordered ONE (11:18)
[2020-11-16] MEDS ORDERED: fentaNYL 100 MCG/2 ML INJECTION (J3010) As Ordered ONE ×2 (11:18→14:20)
[2020-11-16] MEDS ORDERED: propofoL 200 MG/20 ML VIAL As Ordered ONE (11:18)
[2020-11-16] MEDS ORDERED: LIDOCAINE 2% 100MG/5ML SDV (FOR ANES.) As Ordered ONE (11:18)
[2020-11-16] MEDS ORDERED: PHENYLephrine 500MCG 5ML (100MCG/ML) SYRINGE As Ordered ONE (11:18)
[2020-11-16] MEDS ORDERED: ePHEDrine SULFATE 25 MG/5 ML(5MG/ML) SYRINGE As Ordered ONE (11:18)
--- NOTE | 2020-11-16 11:40 | HPEPDOC ---
General Date of Admission Nov 16, 2020 at 08:01 Date of Service: Nov 16, 2020 Chief Complaint The patient is a 60-year-old female admitted with a reason for visit of Closed Right Hip Fracture. History of Present Illness 60-year-old female with past medical history of Migraines, HTN, DLP, Substance abuse, Chronic back pain, Depression, panic disorder, anemia, cervical and lumber spondylosis, occipital neuralgia, brain aneurysm was trying to get out of bed early this morning to go to the bathroom and fell on her right side and started having severe right-sided hip pain which she rated as 10/10 sharp aching in nature with right leg shorter than the left. She was brought to the ED and found to have a mildly displaced right femoral intertrochanteric fracture. Orthopedics has been consulted. Home Medications Scheduled Acetaminophen (Tylenol Arthritis) 650 Mg Tablet.er, 650 MG PO Q8H, (Reported) Amlodipine Besylate (Amlodipine Besylate) 5 Mg Tablet, 5 MG PO DAILY, (Reported) Atorvastatin Calcium (Atorvastatin Calcium) 20 Mg Tablet, 20 MG PO QHS, (Reported) Citalopram Hydrobromide (Celexa) 40 Mg Tablet, 40 MG PO DAILY, (Reported) Gabapentin (Gabapentin) 600 Mg Tablet, 600 MG PO BID, (Reported) Metoprolol Tartrate (Lopressor) 50 Mg Tablet, 50 MG PO BID, (Reported) Scheduled PRN Aspirin/Acetaminophen/Caffeine (Excedrin Migraine Caplet) 1 Each Tablet, 2 TAB PO DAILY PRN for HEADACHE, (Reported) Clonazepam (Clonazepam) 0.5 Mg Tab.rapdis, 0.5 MG PO DAILY PRN for ANXIETY, (Reported) Allergies Coded Allergies: No Known Allergies (Unverified , 08/09/18) Past Medical History Medical History Brain aneurysm, Migraines, HTN, DLP, Substance abuse, Chronic back pain, Depression, panic disorder, anemia, cervical and lumber spondylosis, occipital neuralgia Surgical History x 4 Family History FATHER: , LUNG CANCER MOTHER: , SCIZOPHRENIA SIBLINGS: SCIZOPHRENIA(SISTER) HODGKIN'S DISEASE(BROTHER) PATERNAL GRAND MOTHER: , BREAST CANCER Social History * Smoker: current smoker Drugs: marijuana A-FIB/CHADSVASC A-FIB History Current/History of A-Fib/PAF?: No Review of Systems Constitutional: Denies: Chills, Fever, Night Sweats Eyes: Denies: Pain, Vision change ENT: Denies: Head Aches, Ear Pain, Dysphagia Skin: Denies: Rash, Lesions, Breakdown Pulmonary: Denies: Dyspnea, Cough Cardiovascular: Denies: Chest Pain, Palpitations, Orthopnea, Paroxysmal Noc. Dyspnea, Lt Headedness Gastrointestinal: Denies: Nausea, Vomiting, Abdominal Pain, Diarrhea Genitourinary: Denies: Dysuria, Frequency, Incontinence, Retention Hematologic: Denies: Bruising, Bleeding Excessively Musculoskeletal: Reports: Joint Pain (Right hip pain) Neurological: Denies: Weakness, Numbness, Change in speech, Confusion Physical Examination General Exam: Positive: Alert, Cooperative, No Acute Distress Eye Exam: Positive: PERRLA, Conjunctiva & lids normal, EOMI; Negative: Sclera icteric ENT Exam: Positive: Atraumatic, Mucous membr. moist/pink, Pharynx Normal Neck Exam: Positive: Supple; Negative: JVD, thyromegaly Chest Exam: Positive: Clear to auscultation, Normal air movement Heart Exam: Positive: Rate Normal, Regular Rhythm, Normal S1, Normal S2; Negative: Murmurs, Rubs Abdomen Exam: Positive: Normal bowel sounds, Soft; Negative: Tenderness, Hepatospenomegaly Extremity Exam: Negative: Clubbing, Cyanosis, Edema Skin Exam: Positive: Nl turgor and temperature; Negative: Breakdown, Lesion Psych Exam: Positive: Memory Intact, Oriented x 3 Vital Signs Vital Signs Date Time Temp Pulse Resp B/P (MAP) Pulse Ox O2 Delivery O2 Flow Rate FiO2 11/16/20 07:31 98.4 64 18 105/50 (68) 95 Room Air Laboratory Data Labs 24H Laboratory Tests 2 11/16/20 04:32: Immature Granulocyte % (Auto) 0.4, Neutrophils (%) (Auto) 65.7, Lymphocytes (%) (Auto) 18.9L, Monocytes (%) (Auto) 8.1H, Eosinophils (%) (Auto) 6.3H, Basophils (%) (Auto) 0.6, Neutrophils # (Auto) 9.3H, Lymphocytes # (Auto) 2.7, Monocytes # (Auto) 1.2H, Eosinophils # (Auto) 0.9H, Basophils # (Auto) 0.1, Nucleated Red Blood Cells % (auto) 0.0, Prothrombin Time 11.9, Prothromb Time International R atio 0.84, Activated Partial Thromboplast Time 25.0, Anion Gap 6L, Glomerular Filtration Rate > 60.0, Calcium Level 8.9, Coronavirus (COVID-19)(PCR) NEGATIVE, Influenza Type A (RT-PCR) NEGATIVE, Influenza Type B (RT-PCR) NEGATIVE, Respiratory Syncytial Virus (PCR) NEGATIVE CBC/BMP Laboratory Tests 11/16/20 04:32 Assessment/Plan 60-year-old female with past medical history of Migraines, HTN, DLP, Substance abuse, Chronic back pain, Depression, panic disorder, anemia, cervical and lumber spondylosis, occipital neuralgia, brain aneurysm had a mechanical fall at home and sustained right femoral intertrochanteric fracture. Right femoral intertrochanteric fracture Orthopedics has been consulted Plan for OR today EKG chest x-ray unremarkable. No history of CAD/CHF/CKD/diabetes Patient has been medically optimized for the proposed procedure. Hypertension Will restart amlodipine tomorrow We will continue with metoprolol Hyperlipidemia Continue statin Depression Continue citalopram Chronic back pain/cervical and lumbar spondylosis/occipital neuralgia We will continue gabapentin History of migraine We will give Fioricet as needed Plan / VTE VTE Prophylaxis Ordered?: Yes Beata Giles MD Nov 16, 2020 08:29
[2020-11-16] MEDS ORDERED: ceFAZolin 1GM VIAL (J0690 PER 500MG) As Ordered ONE (11:41)
[2020-11-16] MEDS ORDERED: SUGAMMADEX SODIUM 500 MG/5 ML VIAL (BRIDION) As Ordered ONE (12:37)
[2020-11-16] MEDS ORDERED: dexameTHASONE 4 MG/ML 1ML VIAL (J1100 PER 1MG) As Ordered ONE (12:37)
[2020-11-16] MEDS ORDERED: ONDANSETRON 4MG/2ML VIAL As Ordered ONE (12:37)
[2020-11-16] MEDS ORDERED: ACETAMINOPHEN 1000MG 100ML IV BTL (OFIRMEV) (J0131 PER 10MG) As Ordered ONE (12:39)
[2020-11-16] MEDS ORDERED: BUPIVACAINE/EPIN 0.5% 30 ML VIAL As Ordered ONE (12:43)
--- NOTE | 2020-11-16 14:16 | REP ---
INDICATION: IM NAIL FEMUR IN OR. COMPARISON: Radiographs today. TECHNIQUE: Multiple C-arm views right femur. FINDINGS: There is placement of an intramedullary yaz for fixation of an intertrochanteric fracture of the proximal right femur. The visualized osseous structures are well-aligned. The fixation appears to be in good position. IMPRESSION: 262 seconds of fluoroscopy time was utilized. <Electronically signed by Will Green > 11/16/20 [id number]
[2020-11-16] MEDS: fentaNYL 100 MCG/2 ML INJECTION (J3010) IV PRN ×2 (14:22→14:27)
--- NOTE | 2020-11-16 14:30 | ROOPDOC ---
[facility] Report Of Operation Report of Operation DATE OF PROCEDURE: 11/16/20 PREPROCEDURE DIAGNOSES: [Right displaced intertrochanteric femur fracture]. POSTPROCEDURE DIAGNOSES: [Right displaced intertrochanteric femur fracture]. PROCEDURE PERFORMED: [Right cephalomedullary long nail of femur]. SURGEON: [Rocael weir], BILLING SPECIALIST: [technology intern], ANESTHESIA: [General anesthetic. ]. ESTIMATED BLOOD LOSS: Approximately [200] mL. COMPLICATIONS: [None]. REMARKS: . FINDINGS: [Right displaced intertrochanteric hip fracture] SPECIMENS REMOVED: [None] PROCEDURE NOTE: . DESCRIPTION OF PROCEDURE: [Patient was initially seen in the emergency room. Consented for the above surgery. She was moved to the operative room here at [facility]. She was brought into the operative room. Consent was confirmed. Leg marking was confirmed. X-rays were confirmed. She is given a general anesthetic in usual manner. She was then transferred in a supine position onto the OSI fracture table. A perineal post was placed between her legs. Right leg was immobilized and placed into traction and internal rotation. The left leg was gently extended and immobilized along the post of the bed in extension and adduction. Her right arm was placed over her chest. Left arm on a well-padded bolster. All bony prominences are well-padded. Her right Fluoroscopy was used to confirm the reduction with some gentle traction and internal rotation of the right leg. We thought we got at near anatomic reduction. Patient and was prepped and draped in usual manner. Using fluoroscopy we landmark the incisions. Incision made approximately 2 inches above the greater trochanter. Incision was down to the fascia of the abductors. K wire was then placed into the start point and the medial tip of the trochanter in the center of the trochanter. Once we confirmed the placement of the K wire. The soft tissues were around the K wire. Soft tissue guide placed over the K wire and proximal femur entered using the reamer. A ball-tipped guidewire was then placed into the canal and placed centrally down the canal towards the knee. Confirmed placement of the wire on AP and lateral x-rays of the knee. The femoral canal was then reamed to 12 mm to accept the 11 mm nail. The canal is very capacious with very little chatter from the reamer. We measure the femur to receive a 420 x 11 mm Synthes TFN a nail. The nail was advanced manually over the ball-tipped K wire down into the knee. It was advanced to receive hip screw at 125 degrees on the inferior aspect of the femoral neck. Under fluoroscopic guidance using the radiolucent external guide. We placed the cannulated drill guide through a stab incision up to the lateral aspect of the femur. K wire was advanced into the inferior aspect of the femoral head. We measured the K wire to receive a 90 mm hip screw. The cortex and femoral neck were then drilled with a step drill to receive 90 mm hip screw. Hip screw was advanced over the K wire using fluoroscopy. We thought we got good placement of hip screw. We then use compression mode to compress the fracture gently. We then fully locked hip screw using the interference screw proximally. We then focused on distal locking screws. Leg was gently abducted. Using perfect ty[place]k technique with fluoroscopic guidance, through stab incisions, we placed 2 distal locking screws. We got good purchase of the screws. The radiolucent guide was then removed from the proximal aspect of the nail. Final x-rays were taken. The wounds were irrigated with copious amounts of saline.. close the fascia proximally with interrupted Vicryl. Closed skin with 2-0 interrupted Vicryl and brianna. Sterile dressing was applied to the 3 woun ds.] No complications occurred during the procedure. Patient was awakened from anesthesia. Transferred to the hospital bed in supine position. Taken to recovery in a stable manner. Moving all limbs and sensory intact with good pulses distally. Plan: 1. Admitted to medicine for postop medical optimization. 2. DVT prophylaxis with Xarelto 10 mg p.o. OD for 35 days. 3. Weightbearing as tolerated with physical therapy right leg. 4. Daily dressing changes. Removal of brianna 14 days postop. 5. Follow-up at [facility] orthopedics 2 weeks postop. 6. Future work-up for osteoporosis. ROCAEL BUSTILLOS MD Nov 16, 2020 14:30
[2020-11-16] MEDS ORDERED: LR 1,000 ML IV SCH ×2 (14:45)
[2020-11-16] MEDS ORDERED: traMADol 50 MG TAB PO PRN (14:45)
[2020-11-16] MEDS ORDERED: oxyCODONE 5MG TAB PO PRN (14:45)
[2020-11-16] MEDS ORDERED: METOCLOPRAMIDE INJ 10MG/2ML VIAL (J2765 PER 1) IV PRN (14:45)
[2020-11-16] MEDS ORDERED: ACETAMINOPHEN TAB 650MG DOSE (2X325MG) PO PRN (14:45)
[2020-11-16 15:30] VITALS: BP 113/65
[2020-11-16 16:00] VITALS: BP 115/65
--- NOTE | 2020-11-16 16:05 | REP ---
INDICATION: s/p ORIF COMPARISON: 11/16/2020. TECHNIQUE: AP and lateral right femur. FINDINGS: There is an intramedullary yaz screws in the right femur transfixing a fracture of the proximal right femur in the intertrochanteric region. The osseous structures are well-aligned an the fixation appears to be in good position. IMPRESSION: Metallic internal fixation for intertrochanteric fracture proximal right femur with good alignment. <Electronically signed by Will Green > 11/16/20 3028
[2020-11-16] MEDS: CitaloPRAM (CeleXA) 20 MG TAB PO SCH (16:08)
[2020-11-16] MEDS: PERCOCET 5MG/325MG TAB PO PRN ×2 (16:09→23:29)
[2020-11-16 17:00] VITALS: BP 117/76
[2020-11-16 18:00] VITALS: BP 118/76
[2020-11-16 18:51] VITALS: BP 122/75
[2020-11-16] MEDS: ceFAZolin SOD 1 GM in D5W MINI-BAG PLUS 50 ML IV SCH ×2 (20:05→20:52)
[2020-11-16] MEDS: GABAPENTIN 300 MG CAP PO SCH (20:05)
[2020-11-16] MEDS: ATORVASTATIN 20 MG TAB PO SCH (20:05)
[2020-11-16] MEDS: METOPROLOL TART 50 MG TAB PO SCH (20:06)
--- NOTE | 2020-11-16 20:07 | ECGEPIP ---
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
[2020-11-16 22:00] VITALS: BP 129/79
[2020-11-17 01:54] VITALS: O2SAT 95
[2020-11-17] MEDS: PERCOCET 5MG/325MG TAB PO PRN ×4 (04:29→23:44)
[2020-11-17] MEDS: ceFAZolin SOD 1 GM in D5W MINI-BAG PLUS 50 ML IV SCH ×2 (04:31→05:24)
[2020-11-17 06:00] VITALS: BP 130/79
[2020-11-17 07:33] LABS: BASO % 0.4 % (0.0-1.0); EOS % 0.1 % (0.0-3.0); HEMATOCRIT 33.1 % (36.0-47.0); LYMPH # 1.3 10^3/uL (1.5-5.0); LYMPH % 13.8 % (24.0-44.0); MEAN CORPUSCULAR HEMOGLOBIN 30.9 pg (27.0-33.0); MEAN CORPUSCULAR HGB CONC 32.6 g/dl (32.0-36.5); MEAN CORPUSCULAR VOLUME 94.8 fl (80.0-96.0); MONO # 0.6 10^3/uL (0.0-0.8); MONO % 5.9 % (2.0-8.0); NEUTROPHILS # 7.7 10^3/uL (1.5-8.5); NEUTROPHILS % 79.4 % (36.0-66.0); PLATELET COUNT, AUTOMATED 247 10^3/uL (150-450); RED BLOOD COUNT 3.49 10^6/uL (4.00-5.40); WHITE BLOOD COUNT 9.7 10^3/uL (4.0-10.0)
[2020-11-17 07:49] LABS: BLOOD UREA NITROGEN 22 MG/DL (7-18); CALCIUM LEVEL 8.4 MG/DL (8.8-10.2); CARBON DIOXIDE LEVEL 26 MEQ/L (21-32); CHLORIDE LEVEL 110 MEQ/L (98-107); CREATININE FOR GFR 0.82 MG/DL (0.55-1.30); GLOMERULAR FILTRATION RATE > 60.0 (>45); GLUCOSE, FASTING 111 MG/DL (70-100); HEMOGLOBIN 10.8 g/dl (12.0-15.5); MAGNESIUM LEVEL 2.4 MG/DL (1.8-2.4); SODIUM LEVEL 143 MEQ/L (136-145)
[2020-11-17 07:52] LABS: INR 0.98; PROTHROMBIN TIME 13.4 SECONDS (12.7-14.5)
[2020-11-17] MEDS: METOPROLOL TART 50 MG TAB PO SCH ×2 (08:41→21:37)
[2020-11-17] MEDS: CitaloPRAM (CeleXA) 20 MG TAB PO SCH (08:41)
[2020-11-17] MEDS: GABAPENTIN 300 MG CAP PO SCH ×2 (08:41→21:37)
[2020-11-17 10:00] VITALS: BP 125/79
[2020-11-17] MEDS ORDERED: KETOROLAC 30 MG/ML 1ML VIAL IV ONE (12:15)
--- NOTE | 2020-11-17 12:21 | IPNPDOC ---
Subjective Date Seen The patient was seen on 11/17/20. Subjective Chief Complaint/HPI No acute overnight events. Complains of pain at the surgical site. Says pain is not controlled with 1 Percocet. Patient refused to try tramadol. We will give 1 dose of Toradol and increase Percocet to 2 tablets every 6 hours. Objective Physical Examination General Exam: Positive: Alert, Cooperative, No Acute Distress Eye Exam: Positive: PERRLA, Conjunctiva & lids normal, EOMI; Negative: Sclera icteric ENT Exam: Positive: Atraumatic, Mucous membr. moist/pink, Pharynx Normal Neck Exam: Positive: Supple; Negative: JVD, thyromegaly Chest Exam: Positive: Clear to auscultation, Normal air movement Heart Exam: Positive: Rate Normal, Regular Rhythm, Normal S1, Normal S2; Negative: Murmurs, Rubs Abdomen Exam: Positive: Normal bowel sounds, Soft; Negative: Tenderness, Hepatospenomegaly Extremity Exam: Negative: Clubbing, Cyanosis, Edema Skin Exam: Positive: Nl turgor and temperature; Negative: Breakdown, Lesion Psych Exam: Positive: Memory Intact, Oriented x 3 Assessment /Plan Assessment 60-year-old female with past medical history of Migraines, HTN, DLP, Substance abuse, Chronic back pain, Depression, panic disorder, anemia, cervical and lumb er spondylosis, occipital neuralgia, brain aneurysm had a mechanical fall at home and sustained right femoral intertrochanteric fracture. Displaced Right femoral intertrochanteric fracture Right cephalomedullary long nail of femur on 11/16/20 Pain control with percocet , toradol Pt has h/o substance abuse and is asking for dilaudid. PT and OT. Hypertension continue with metoprolol amlodipine if needed Hyperlipidemia Continue statin Depression Continue citalopram Chronic back pain/cervical and lumbar spondylosis/occipital neuralgia We will continue gabapentin History of migraine We will give Fioricet as needed Plan/VTE VTE Prophylaxis Ordered?: Yes VS, I&O, 24H, Fishbone Vital Signs/I&O Vital Signs Date Time Temp Pulse Resp B/P (MAP) Pulse Ox O2 Delivery O2 Flow Rate FiO2 11/17/20 10:00 99.4 64 18 125/79 (94) 96 Nasal Cannula 3.0 I&O- Last 24 Hours up to 6 AM 11/17/20 06:00 Intake Total 3530 ml Output Total 1825 ml Balance 1705 ml Laboratory Data 24H LABS Laboratory Tests 2 11/17/20 07:03: Immature Granulocyte % (Auto) 0.4, Neutrophils (%) (Auto) 79.4H, Lymphocytes (%) (Auto) 13.8L, Monocytes (%) (Auto) 5.9, Eosinophils (%) (Auto) 0.1, Basophils (%) (Auto) 0.4, Neutrophils # (Auto) 7.7, Lymphocytes # (Auto) 1.3L, Monocytes # (Auto) 0.6, Eosinophils # (Auto) 0.0, Basophils # (Auto) 0.0, Nucleated Red Blood Cells % (auto) 0.0, Prothrombin Time 13.4, Prothromb Time International Ratio 0.98, Anion Gap 7L, Glomerular Filtration Rate > 60.0, Calcium Level 8.4L, Magnesium Level 2.4 CBC/BMP Laboratory Tests 11/17/20 07:03 Beata Giles MD Nov 17, 2020 12:21
[2020-11-17] MEDS: MOM 30ML SUSPENSION UDC PO SCH (12:54)
[2020-11-17] MEDS: SENOKOT S TAB PO SCH ×2 (12:55→21:37)
[2020-11-17 14:00] VITALS: BP 131/81
--- NOTE | 2020-11-17 14:01 | IPNPDOC ---
Subjective Date Seen The patient was seen on 11/17/20. Subjective Chief Complaint/HPI Postop day 1 right cephalomedullary nail. Complaining of right-sided hip pain. Musculoskeletal: Reports: Other Symptoms (Right-sided hip pain over the proximal incision.) Objective Physical Examination General Exam: Positive: Alert, Cooperative, No Acute Distress Eye Exam: Positive: Conjunctiva & lids normal, EOMI; Negative: Sclera icteric ENT Exam: Positive: Atraumatic, Mucous membr. moist/pink, Pharynx Normal Neck Exam: Positive: Supple; Negative: JVD, thyromegaly Chest Exam: Positive: Clear to auscultation, Normal air movement Heart Exam: Positive: Rate Normal, Regular Rhythm, Normal S1, Normal S2; Negative: Murmurs, Rubs Abdomen Exam: Positive: Normal bowel sounds, Soft; Negative: Tenderness, Hepatospenomegaly Extremity Exam: Positive: Other (Right hip good range of motion. Knee full range of motion ankle full range of motion. Mobilizing slowly with a walker.); Negative: Clubbing, Cyanosis, Edema Skin Exam: Positive: Nl turgor and temperature, Other skin issue (Incisions and dressing clean and dry); Negative: Breakdown, Lesion Neuro Exam: Positive: Normal Tone, Sensation Intact Psych Exam: Positive: Memory Intact, Oriented x 3 Other physical findings Patient sitting comfortably at the side of the bed. Complains of some mild right-sided hip pain. Incisions/dressings clean and dry Denies any sensory deficits. Good pulses distally. Assessment /Plan Plan/VTE VTE Prophylaxis Ordered?: Yes Plan Therapy: PT, OT, Home Safety Eval Anticipated Discharge: Home With Services Mobilize weightbearing as tolerated right leg Dressing change every 2 days. Cleaned with chlorhexidine and sterile absorbent dressing applied. DVT prophylaxis as per medicine Follow-up with [facility] orthopedics as an outpatient in 2 weeks. VS, I&O, 24H, Fishbone Vital Signs/I&O Vital Signs Date Time Temp Pulse Resp B/P (MAP) Pulse Ox O2 Delivery O2 Flow Rate FiO2 11/17/20 10:00 99.4 64 18 125/79 (94) 96 Nasal Cannula 3.0 I&O- Last 24 Hours up to 6 AM 11/17/20 06:00 Intake Total 3530 ml Output Total 1825 ml Balance 1705 ml Laboratory Data 24H LABS Laboratory Tests 2 11/17/20 07:03: Immature Granulocyte % (Auto) 0.4, Neutrophils (%) (Auto) 79.4H, Lymphocytes (%) (Auto) 13.8L, Monocytes (%) (Auto) 5.9, Eosinophils (%) (Auto) 0.1, Basophils (% ) (Auto) 0.4, Neutrophils # (Auto) 7.7, Lymphocytes # (Auto) 1.3L, Monocytes # (Auto) 0.6, Eosinophils # (Auto) 0.0, Basophils # (Auto) 0.0, Nucleated Red Blood Cells % (auto) 0.0, Prothrombin Time 13.4, Prothromb Time International Ratio 0.98, Anion Gap 7L, Glomerular Filtration Rate > 60.0, Calcium Level 8.4L, Magnesium Level 2.4 CBC/BMP Laboratory Tests 11/17/20 07:03 JACQUIE BUSTILLOS MD Nov 17, 2020 14:01
[2020-11-17] MEDS ORDERED: RIVAROXABAN 10 MG TAB (XARELTO) PO SCH (18:00)
[2020-11-17 20:00] VITALS: BP 124/73
[2020-11-17] MEDS: ATORVASTATIN 20 MG TAB PO SCH (21:36)
[2020-11-18 06:02] VITALS: BP 116/72
[2020-11-18 06:24] LABS: BASO # 0.1 10^3/uL (0.0-0.2); BASO % 0.9 % (0.0-1.0); EOS # 0.4 10^3/uL (0.0-0.5); EOS % 4.3 % (0.0-3.0); HEMOGLOBIN 10.7 g/dl (12.0-15.5); LYMPH # 2.1 10^3/uL (1.5-5.0); LYMPH % 22.6 % (24.0-44.0); MEAN CORPUSCULAR HEMOGLOBIN 30.8 pg (27.0-33.0); MEAN CORPUSCULAR HGB CONC 32.4 g/dl (32.0-36.5); MEAN CORPUSCULAR VOLUME 95.1 fl (80.0-96.0); MONO # 0.7 10^3/uL (0.0-0.8); MONO % 7.6 % (2.0-8.0); NEUTROPHILS % 64.2 % (36.0-66.0); PLATELET COUNT, AUTOMATED 241 10^3/uL (150-450); RED BLOOD COUNT 3.47 10^6/uL (4.00-5.40); WHITE BLOOD COUNT 9.3 10^3/uL (4.0-10.0)
[2020-11-18 06:29] LABS: INR 1.14
[2020-11-18 06:44] LABS: BLOOD UREA NITROGEN 28 MG/DL (7-18); CALCIUM LEVEL 8.5 MG/DL (8.8-10.2); CARBON DIOXIDE LEVEL 28 MEQ/L (21-32); CHLORIDE LEVEL 110 MEQ/L (98-107); CREATININE FOR GFR 0.74 MG/DL (0.55-1.30); GLOMERULAR FILTRATION RATE > 60.0 (>45); GLUCOSE, FASTING 107 MG/DL (70-100); POTASSIUM SERUM 3.8 MEQ/L (3.5-5.1); SODIUM LEVEL 141 MEQ/L (136-145)
[2020-11-18] MEDS: MOM 30ML SUSPENSION UDC PO SCH (07:51)
[2020-11-18] MEDS: PERCOCET 5MG/325MG TAB PO PRN ×2 (07:52→13:59)
[2020-11-18 07:54] VITALS: BP 121/85
[2020-11-18] MEDS: METOPROLOL TART 50 MG TAB PO SCH (07:54)
[2020-11-18] MEDS: GABAPENTIN 300 MG CAP PO SCH (07:55)
[2020-11-18] MEDS: SENOKOT S TAB PO SCH (07:55)
[2020-11-18] MEDS: CitaloPRAM (CeleXA) 20 MG TAB PO SCH (07:55)
[2020-11-18] MEDS ORDERED: XARE10TA PO (11:25)
[2020-11-18 14:00] VITALS: BP 126/74
--- NOTE | 2020-11-18 16:10 | DS.PDOC ---
Discharge Summary General Date of Admission Nov 16, 2020 at 08:01 Date of Discharge 11/18/20 Discharge Summary PROCEDURES PERFORMED DURING STAY: [None]. ADMITTING DIAGNOSES: 1. . DISCHARGE DIAGNOSES: 1. . COMPLICATIONS/CHIEF COMPLAINT: Closed Right Hip Fracture. HISTORY OF PRESENT ILLNESS: . HOSPITAL COURSE: 60-year-old female with past medical history of migraine, hypertension, dyslipidemia, substance abuse, chronic back pain, depression, panic disorder, anemia, cervical and lumbar spondylosis, cervical neuralgia, brain aneurysm who was seen at [facility] on 11/16 for a mechanical fall. A hip x-ray was done that showed an acutely, mildly displaced intertrochanteric fracture of the right femur. She was evaluated by the orthopedics team, and was taken to the OR on 11/16 for right cephalomedullary long nail of femur. She was evaluated physical therapy team and was provided a walker for home, and home health was arranged for her for ongoing physical therapy sessions as well as dressing changes. She was started on Xarelto 10 mg for a total of 35 days for DVT prophylaxis as per orthopedics recommendations. She is to follow-up with her primary care physician within 5 days to discuss recent events. She is also asked to follow-up with orthopedics team in 10 to 14 days. Of note, patient was noted to be anemic (hemoglobin at time of discharge was 10 g/dL). She was asked to follow-up with her primary care physician for further evaluation. DISCHARGE MEDICATIONS: Please see below. ALLERGIES: Please see below. PHYSICAL EXAMINATION ON DISCHARGE: VITAL SIGNS: Please see below. General: Lying in bed, no acute distress Head/Neck/Throat: Trachea midline, mucous membranes moist Eyes: Sclera anicteric, PERRLA Thorax: Normal respiratory effort on room air, lungs clear to auscultation bilaterally, no wheezes/rales/rhonchi Cardiovascular: Normal rate, regular rhythm, normal S1, S2; no S3, S4, rubs/gallops/murmurs Abdomen: Bowel sounds present, soft/nontender/nondistended Genitourinary: No CVA tenderness, no Bl[place] in place Musculoskeletal: Moving all extremities, no edema Skin: Warm, dry. No soaking appreciated through dressing (previous exam by orthopedics team) Neurologic: AAOx3, speech fluent and goal-directed, no focal deficits, grossly intact LABORATORY DATA: Please see below. IMAGING: X-ray right hip 11/16/2020 FINDINGS: Bones/joints: There is an acute intertrochanteric fracture of the right femur. There is medial displacement of the fracture fragment which contains the lesser trochanter. There is mild distraction at the greater trochanter fracture site, with the greater trochanter fragment slightly medially displaced as well. The right hip joint space is maintained. There are minimal osteophytes at the right hip. There is a healed fracture deformity of the left inferior pubic ramus, also visible on the prior CT scan. Soft tissues: Unremarkable. CXR - 11/16/20 Lungs: The lungs are clear. Pleural spaces: No pleural effusions or pneumothorax identified. Heart/Mediastinum: The heart appears mildly enlarged but this may be due to accentuation related to the projection. Bones/joints: Unremarkable. IMPRESSION: No evidence of acute pleural or parenchymal disease. Hip x-ray s/p ORIF - 11/16/20 FINDINGS: There is an intramedullary yaz screws in the right femur transfixing a fracture of the proximal right femur in the intertrochanteric region. The osseous structures are well-aligned an the fixation appears to be in good position. PROGNOSIS: Good ACTIVITY: As per physical therapy recommendations DIET: As tolerated DISCHARGE PLAN: Home with home services DISCHARGE INSTRUCTIONS: 1. Follow-up with primary care physician in 5 days 2. Follow-up with orthopedics team in 10 to 14 days 3. Further work-up as outpatient for anemia explained to patient. DISCHARGE CONDITION: Stable. TIME SPENT ON DISCHARGE: 25 minutes. Vital Signs/I&Os Vital Signs Date Time Temp Pulse Resp B/P (MAP) Pulse Ox O2 Delivery O2 Flow Rate FiO2 11/18/20 08:22 18 11/18/20 07:54 71 121/85 11/18/20 06:02 97.2 92 Room Air 11/17/20 10:00 3.0 I&O- Last 24 Hours up to 6 AM 11/18/20 05:59 Intake Total 1320 ml Output Total 800 ml Balance 520 ml Laboratory Data Labs 24H Laboratory Tests 2 11/18/20 05:47: Immature Granulocyte % (Auto) 0.4, Neutrophils (%) (Auto) 64.2, Lymphocytes (%) (Auto) 22.6L, Monocytes (%) (Auto) 7.6, Eosinophils (%) (Auto) 4.3H, Basophils (%) (Auto) 0.9, Neutrophils # (Auto) 6.0, Lymphocytes # (Auto) 2.1, Monocytes # (Auto) 0.7, Eosinophils # (Auto) 0.4, Basophils # (Auto) 0.1, Nucleated Red Blood Cells % (auto) 0.0, Prothrombin Time 15.0H, Prothromb Time International Ratio 1.14, Anion Gap 3L, Glomerular Filtration Rate > 60.0, Calcium Level 8.5L CBC/BMP Laboratory Tests 11/18/20 05:47 Discharge Medications Scheduled Acetaminophen (Tylenol Arthritis) 650 Mg Tablet.er, 650 MG PO Q8H, (Reported) Amlodipine Besylate (Amlodipine Besylate) 5 Mg Tablet, 5 MG PO DAILY, (Reported) Atorvastatin Calcium (Atorvastatin Calcium) 20 Mg Tablet, 20 MG PO QHS, (Repor dalton) Citalopram Hydrobromide (Celexa) 40 Mg Tablet, 40 MG PO DAILY, (Reported) Gabapentin (Gabapentin) 600 Mg Tablet, 600 MG PO BID, (Reported) Metoprolol Tartrate (Lopressor) 50 Mg Tablet, 50 MG PO BID, (Reported) Rivaroxaban (Xarelto) 10 Mg Tablet, 10 MG PO DAILY@18 Scheduled PRN Aspirin/Acetaminophen/Caffeine (Excedrin Migraine Caplet) 1 Each Tablet, 2 TAB PO DAILY PRN for HEADACHE, (Reported) Clonazepam (Clonazepam) 0.5 Mg Tab.rapdis, 0.5 MG PO DAILY PRN for ANXIETY, (Reported) Allergies Coded Allergies: No Known Allergies (Unverified , 08/09/18) EVI YU M.D. Nov 18, 2020 11:27
--- NOTE | 2020-11-18 17:54 | ECGEPIP ---
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
[2020-11-18] MEDS ORDERED: PERCOCET PO (18:38)
[2020-11-19] MEDS ORDERED: OXYC1TAB23 PO (15:29)
== END 2020-11-18 17:25 | disposition home health service (06) | DRG 482 ==
LOC: M ED 02:44 → M ED INP 08:01 → ENRESERV 11:53 → M MS5PR 15:10
PROVIDERS: ADMIT Internal Medicine Nephrology; ATTEND Internal Medicine
PROC: 0QS606Z Reposition Right Upper Femur with Intramedullary Internal Fixation Device, Open Approach (ICD-10-PCS; principal; 2020-11-16 11:04)
DX: S72.101A Unspecified trochanteric fracture of right femur, initial encounter for closed fracture (principal); I10 Essential (primary) hypertension; Z79.899 Other long term (current) drug therapy; W18.30XA Fall on same level, unspecified, initial encounter; Y92.009 Unspecified place in unspecified non-institutional (private) residence as the place of occurrence of the external cause; F32.9 Major depressive disorder, single episode, unspecified; G43.909 Migraine, unspecified, not intractable, without status migrainosus; M54.81 Occipital neuralgia; E78.5 Hyperlipidemia, unspecified

== ENCOUNTER → 2020-12-01 | Outpatient (CLI) | payer MEDICARE, OTHER ==
[~2020-12-01] MED LIST changes: +GABA600T4 PO; +XARE10TA PO
--- NOTE | 2020-12-01 09:38 | REP ---
INDICATION: FEMUR FX. COMPARISON: 11/16/2020 TECHNIQUE: Portable AP and frog-lateral views of the right femur FINDINGS: Patient is status post satisfactory open reduction and fixation for intertrochanteric femur fracture with satisfactory positioning to the intramedullary yaz and compression screws. IMPRESSION: Satisfactory open reduction and fixation. <Electronically signed by Clark Flaherty > 12/01/20 0905
== END ==
LOC: M SOG 08:29
PROVIDERS: ATTEND Orthopaedic Surgery
DX: S72.141D Displaced intertrochanteric fracture of right femur, subsequent encounter for closed fracture with routine healing (principal)

== ENCOUNTER 2020-12-17 13:39 | Outpatient (RCR) | payer MEDICARE ==
[~2020-12-17 13:39] MED LIST changes: -IBUP200T45 PO; +IBUP200T46 PO
== END 2021-01-04 ==
LOC: M PT 13:39
PROVIDERS: ATTEND Orthopaedic Surgery
DX: Z47.89 Encounter for other orthopedic aftercare (principal); S72.141D Displaced intertrochanteric fracture of right femur, subsequent encounter for closed fracture with routine healing; X58.XXXD Exposure to other specified factors, subsequent encounter

== ENCOUNTER → 2020-12-25 | Outpatient (CLI) | payer MEDICARE ==
--- NOTE | 2020-12-25 14:13 | ECGEPIP ---
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
== END ==
LOC: M EKG 09:56
PROVIDERS: ATTEND Nurse Practitioner Family
DX: R07.9 Chest pain, unspecified (principal); R94.31 Abnormal electrocardiogram [ECG] [EKG]

== ENCOUNTER → 2021-07-13 | Outpatient (CLI) | payer MEDICARE, MEDICAID ==
[~2021-07-13] MED LIST changes: -CITA40TA4; -CITA40TA4 PO; +CITA40TA7; +CITA40TA7 PO; +EXCETAB32 PO; -EXCETAB33 PO; -RIFA300C3 PO; +RIFA300C8 PO
== END ==
LOC: M RAD 12:10
PROVIDERS: ATTEND Nurse Practitioner Family
DX: M79.604 Pain in right leg (principal)

== ENCOUNTER → 2021-08-26 | Outpatient (CLI) | payer MEDICARE, MEDICAID | LOC: M SOG 13:07 | PROVIDERS: ATTEND Orthopaedic Surgery | DX: Z47.89 Encounter for other orthopedic aftercare (principal); S72.141S Displaced intertrochanteric fracture of right femur, sequela ==

== ENCOUNTER → 2021-12-18 | Outpatient (REF) | payer MEDICARE, MEDICAID ==
[2021-12-18 17:11] LABS: BASO # 0.1 10^3/uL (0.0-0.2); EOS # 0.8 10^3/uL (0.0-0.5); EOS % 6.9 % (0.0-3.0); HEMATOCRIT 42.3 % (36.0-47.0); HEMOGLOBIN 13.6 g/dl (12.0-15.5); LYMPH # 3.7 10^3/uL (1.5-5.0); LYMPH % 32.5 % (24.0-44.0); MEAN CORPUSCULAR HEMOGLOBIN 30.9 pg (27.0-33.0); MEAN CORPUSCULAR HGB CONC 32.2 g/dl (32.0-36.5); MEAN CORPUSCULAR VOLUME 96.1 fl (80.0-96.0); MONO # 0.9 10^3/uL (0.0-0.8); MONO % 7.8 % (2.0-8.0); NEUTROPHILS # 5.9 10^3/uL (1.5-8.5); NEUTROPHILS % 51.5 % (36.0-66.0); PLATELET COUNT, AUTOMATED 346 10^3/uL (150-450); WHITE BLOOD COUNT 11.4 10^3/uL (4.0-10.0)
[2021-12-18 17:28] LABS: ALBUMIN 3.6 GM/DL (3.2-5.2); ALT/SGPT 27 U/L (12-78); BILIRUBIN,TOTAL 0.6 MG/DL (0.2-1.0); BLOOD UREA NITROGEN 32 MG/DL (7-18); CALCIUM LEVEL 9.1 MG/DL (8.8-10.2); CARBON DIOXIDE LEVEL 26 MEQ/L (21-32); CHLORIDE LEVEL 113 MEQ/L (98-107); CHOLESTEROL LEVEL 140 MG/DL (<200); CREATININE FOR GFR 0.96 MG/DL (0.55-1.30); GLOMERULAR FILTRATION RATE > 60.0 (>45); GLUCOSE, FASTING 82 MG/DL (70-100); HDL CHOLESTEROL 50 MG/DL (>40); LDL CHOLESTEROL 74 MG/DL (<100); NON-HDL-C 90 MG/DL; SODIUM LEVEL 144 MEQ/L (136-145); TOTAL PROTEIN 6.6 GM/DL (6.4-8.2); TRIGLYCERIDES LEVEL 82 MG/DL (<150)
== END ==
LOC: M LAB REF 16:36
PROVIDERS: ATTEND Nurse Practitioner Family
DX: E66.3 Overweight (principal)

== ENCOUNTER → 2022-03-22 | Outpatient (REF) | payer MEDICARE, MEDICAID ==
[2022-03-22 17:09] LABS: BASO # 0.1 10^3/uL (0.0-0.2); BASO % 1.2 % (0.0-1.0); EOS # 0.6 10^3/uL (0.0-0.5); EOS % 6.3 % (0.0-3.0); HEMATOCRIT 45.2 % (36.0-47.0); HEMOGLOBIN 14.7 g/dl (12.0-15.5); LYMPH # 3.4 10^3/uL (1.5-5.0); LYMPH % 34.4 % (24.0-44.0); MEAN CORPUSCULAR HEMOGLOBIN 30.7 pg (27.0-33.0); MEAN CORPUSCULAR HGB CONC 32.5 g/dl (32.0-36.5); MEAN CORPUSCULAR VOLUME 94.4 fl (80.0-96.0); MONO # 0.8 10^3/uL (0.0-0.8); MONO % 8.2 % (2.0-8.0); NEUTROPHILS # 4.8 10^3/uL (1.5-8.5); NEUTROPHILS % 49.6 % (36.0-66.0); PLATELET COUNT, AUTOMATED 372 10^3/uL (150-450); RED BLOOD COUNT 4.79 10^6/uL (4.00-5.40); WHITE BLOOD COUNT 9.8 10^3/uL (4.0-10.0)
[2022-03-22 17:32] LABS: ALKALINE PHOSPHATASE 136 U/L (46-116); ALT/SGPT 28 U/L (7.0-40); AST/SGOT 21 U/L (<34); BILIRUBIN,TOTAL 0.6 MG/DL (0.3-1.2); BLOOD UREA NITROGEN 32 MG/DL (9-23); CALCIUM LEVEL 9.7 MG/DL (8.3-10.6); CARBON DIOXIDE LEVEL 25 MMOL/L (20-31); CHLORIDE LEVEL 112 MMOL/L (98-107); CHOLESTEROL LEVEL 157 MG/DL (<200); CHOLESTEROL RISK RATIO 3.43 (<5); CREATININE FOR GFR 0.79 MG/DL (0.55-1.30); GLOMERULAR FILTRATION RATE > 60.0 (>45); GLUCOSE, FASTING 92 MG/DL (74-106); HDL CHOLESTEROL 45.7 MG/DL (>40); LDL CHOLESTEROL 91.9 MG/DL (<100); NON-HDL-C 111 MG/DL; POTASSIUM SERUM 4.7 MMOL/L (3.5-5.1); SODIUM LEVEL 141 MMOL/L (136-145); TRIGLYCERIDES LEVEL 97 MG/DL (<150)
[2022-03-22 17:35] LABS: THYROID STIMULATING HORMONE 4.033 uIU/ML (0.55-4.78)
[2022-03-22 18:05] LABS: HIV 1&2 SCREEN CENTAUR NEGATIVE (NEGATIVE)
[2022-03-22 18:43] LABS: HEPATITIS C VIRUS ABY INDEX 9.7 INDEX (<0.8)
[2022-03-25 12:08] LABS: VITAMIN D 1,25 DIHYDROXY 27.2 pg/mL (24.8-81.5)
== END ==
LOC: M LAB REF 16:31
PROVIDERS: ATTEND Nurse Practitioner Family
DX: Z13.228 Encounter for screening for other metabolic disorders (principal); Z11.59 Encounter for screening for other viral diseases; Z11.4 Encounter for screening for human immunodeficiency virus [HIV]; Z79.899 Other long term (current) drug therapy; Z79.01 Long term (current) use of anticoagulants

== ENCOUNTER → 2022-04-29 | Outpatient (CLI) | payer MEDICARE, MEDICAID, OTHER | LOC: M SOG 10:29 | PROVIDERS: ATTEND Orthopaedic Surgery | DX: M54.50 Low back pain, unspecified (principal) ==

== ENCOUNTER → 2022-05-06 | Outpatient (CLI) | payer OTHER, MEDICAID | LOC: M RAD 10:11 | PROVIDERS: ATTEND Nurse Practitioner Family | DX: Z12.2 Encounter for screening for malignant neoplasm of respiratory organs (principal); I71.20 Thoracic aortic aneurysm, without rupture, unspecified ==

== ENCOUNTER → 2022-07-14 | Outpatient (REF) | payer OTHER, MEDICAID ==
[2022-07-15 17:07] LABS: HEPATITIS C QUANTITATION HCV Not Detected IU/mL (.)
== END ==
LOC: M LAB REF 12:32
PROVIDERS: ATTEND Nurse Practitioner Family
DX: Z11.59 Encounter for screening for other viral diseases (principal)

== ENCOUNTER → 2022-07-20 | Outpatient (CLI) | payer OTHER, MEDICAID ==
[2022-07-20 15:53] LABS: BLOOD UREA NITROGEN 31 MG/DL (9-23); CREATININE FOR GFR 0.91 MG/DL (0.55-1.30); GLOMERULAR FILTRATION RATE > 60.0 (>45)
== END ==
LOC: M LAB 14:46
PROVIDERS: ATTEND Neurological Surgery
DX: I67.1 Cerebral aneurysm, nonruptured (principal)

== ENCOUNTER 2022-09-09 11:27 | Emergency (ER) | payer OTHER, MEDICAID ==
[~2022-09-09 11:27] MED LIST changes: -ROPI0.253; -ROPI1TAB3; +ROPI1TAB73; +ROPI5TAB19
== END 2022-09-09 11:35 | disposition left against medical advice (07) ==
LOC: M ED 11:27
DX: Z53.21 Procedure and treatment not carried out due to patient leaving prior to being seen by health care provider (principal)

== ENCOUNTER → 2022-10-29 | Outpatient (CLI) | payer OTHER, MEDICAID ==
[~2022-10-29] MED LIST changes: -AMIT25TA17; -AMIT25TA17 PO; +AMIT25TA19; +AMIT25TA19 PO
[2022-10-29 19:14] LABS: CREATININE FOR GFR 1.07 MG/DL (0.55-1.30); GLOMERULAR FILTRATION RATE 55.3 (>45)
== END ==
LOC: M LAB 18:19
PROVIDERS: ATTEND Neurological Surgery
DX: Z01.818 Encounter for other preprocedural examination (principal); I67.1 Cerebral aneurysm, nonruptured

== ENCOUNTER 2022-12-27 13:24 | Emergency (ER) | payer OTHER, MEDICAID ==
[~2022-12-27] VITALS: Ht 175.3 cm; Wt 88.3 kg
[2022-12-27 17:08] VITALS: BP 142/77; TEMP 97.6; O2SAT 96
== END 2022-12-27 17:13 | disposition home or self-care (01) ==
LOC: M ED 13:24
DX: M70.42 Prepatellar bursitis, left knee (principal); I10 Essential (primary) hypertension; R51.9 Headache, unspecified; F17.200 Nicotine dependence, unspecified, uncomplicated; F19.10 Other psychoactive substance abuse, uncomplicated; F10.10 Alcohol abuse, uncomplicated; Z79.82 Long term (current) use of aspirin; Z79.02 Long term (current) use of antithrombotics/antiplatelets; Z79.891 Long term (current) use of opiate analgesic; Z79.899 Other long term (current) drug therapy

== ENCOUNTER 2022-12-29 09:48 | Emergency (ER) | payer OTHER, MEDICAID ==
[~2022-12-29] VITALS: Ht 175.3 cm; Wt 89.4 kg
[2022-12-29 10:41] LABS: BASO # 0.1 10^3/uL (0.0-0.2); BASO % 1.4 % (0.0-1.0); EOS # 0.8 10^3/uL (0.0-0.5); EOS % 8.1 % (0.0-3.0); HEMATOCRIT 34.8 % (36.0-47.0); HEMOGLOBIN 11.6 g/dl (12.0-15.5); LYMPH # 3.1 10^3/uL (1.5-5.0); LYMPH % 33.5 % (24.0-44.0); MEAN CORPUSCULAR HEMOGLOBIN 31.3 pg (27.0-33.0); MEAN CORPUSCULAR HGB CONC 33.3 g/dl (32.0-36.5); MEAN CORPUSCULAR VOLUME 93.8 fl (80.0-96.0); MONO # 0.8 10^3/uL (0.0-0.8); MONO % 8.9 % (2.0-8.0); NEUTROPHILS # 4.5 10^3/uL (1.5-8.5); NEUTROPHILS % 47.9 % (36.0-66.0); PLATELET COUNT, AUTOMATED 276 10^3/uL (150-450); RED BLOOD COUNT 3.71 10^6/uL (4.00-5.40); WHITE BLOOD COUNT 9.3 10^3/uL (4.0-10.0)
[2022-12-29 10:52] LABS: INR 0.89; PARTIAL THROMBOPLASTIN TIME 23.8 SECONDS (24.8-34.2); PROTHROMBIN TIME 11.8 SECONDS (12.5-14.5)
[2022-12-29 11:06] LABS: LIPASE 139 U/L (12-53)
[2022-12-29 11:07] LABS: CPK CREATINE PHOSPHOKINASE 60 U/L (34-145)
[2022-12-29 11:08] LABS: ALBUMIN 3.4 G/DL (3.2-5.2); ALKALINE PHOSPHATASE 108 U/L (46-116); ALT/SGPT 23 U/L (7.0-40); AST/SGOT 17 U/L (<34); BILIRUBIN,DIRECT 0.2 MG/DL (<0.4); BILIRUBIN,TOTAL 0.4 MG/DL (0.3-1.2); BLOOD UREA NITROGEN 31 MG/DL (9-23); CALCIUM LEVEL 8.9 MG/DL (8.3-10.6); CARBON DIOXIDE LEVEL 26 MMOL/L (20-31); CHLORIDE LEVEL 111 MMOL/L (98-107); CK-MB VALUE MASS < 1.0 NG/ML (<3.6); CREATININE FOR GFR 0.77 MG/DL (0.55-1.30); GLOMERULAR FILTRATION RATE > 60.0 (>45); GLUCOSE, FASTING 88 MG/DL (74-106); MB/CK RELATIVE INDEX 1.66 (< OR =4); POTASSIUM SERUM 3.9 MMOL/L (3.5-5.1); SODIUM LEVEL 142 MMOL/L (136-145)
[2022-12-29 11:12] LABS: FREE T4 0.77 NG/DL (0.89-1.76); THYROID STIMULATING HORMONE 1.604 uIU/ML (0.55-4.78)
[2022-12-29] MEDS ORDERED: ISOVUE-370 76% 100ML VIAL As Ordered ONE (11:42)
[2022-12-29 12:18] LABS: CK-MB VALUE MASS < 1.0 NG/ML (<3.6)
[2022-12-29 12:22] LABS: CPK CREATINE PHOSPHOKINASE 54 U/L (34-145); MB/CK RELATIVE INDEX 1.85 (< OR =4)
[2022-12-29] MEDS ORDERED: KETOROLAC 30 MG/ML 1ML VIAL IV ONE (12:30)
[2022-12-29 12:36] LABS: ERYTHROCYTE SEDIMENTATION RATE 6 mm/hr (0-30)
[2022-12-29] MEDS: PERCOCET 5MG/325MG TAB PO ONE ×2 (12:40→14:02)
[2022-12-29 14:14] VITALS: BP 144/86; TEMP 96.7; O2SAT 98
== END 2022-12-29 14:19 | disposition home or self-care (01) ==
LOC: M ED 09:48
DX: R07.9 Chest pain, unspecified (principal); I44.4 Left anterior fascicular block; E78.5 Hyperlipidemia, unspecified; I10 Essential (primary) hypertension; F17.200 Nicotine dependence, unspecified, uncomplicated; Z79.82 Long term (current) use of aspirin; Z79.02 Long term (current) use of antithrombotics/antiplatelets; Z79.891 Long term (current) use of opiate analgesic; Z79.899 Other long term (current) drug therapy
CPT/HCPCS: 71045; 71275; 80048; 80076; 82550; 82553; 83690; 83880; 84439; 84443; 84484; 85025; 85610; 85652; 85730; 87486; 87581; 87633; 87798; 93005; 93041; 93971; 94760; 96374; 99285; J1885; Q9967

== ENCOUNTER → 2023-01-10 | Outpatient (CLI) | payer OTHER, MEDICAID ==
[2023-01-10 14:25] LABS: BLOOD UREA NITROGEN 28 MG/DL (9-23); CREATININE FOR GFR 0.87 MG/DL (0.55-1.30); GLOMERULAR FILTRATION RATE > 60.0 (>45)
== END ==
LOC: M LAB 12:58
PROVIDERS: ATTEND Neurological Surgery
DX: Z01.818 Encounter for other preprocedural examination (principal); I67.1 Cerebral aneurysm, nonruptured

== ENCOUNTER → 2023-04-22 | Outpatient (REF) | payer OTHER, MEDICAID ==
[2023-04-22 12:19] LABS: BASO # 0.1 10^3/uL (0.0-0.2); BASO % 1.1 % (0.0-1.0); EOS # 0.5 10^3/uL (0.0-0.5); EOS % 4.4 % (0.0-3.0); HEMATOCRIT 42.3 % (36.0-47.0); HEMOGLOBIN 14.2 g/dl (12.0-15.5); LYMPH # 3.2 10^3/uL (1.5-5.0); LYMPH % 29.8 % (24.0-44.0); MEAN CORPUSCULAR HEMOGLOBIN 31.7 pg (27.0-33.0); MEAN CORPUSCULAR HGB CONC 33.6 g/dl (32.0-36.5); MEAN CORPUSCULAR VOLUME 94.4 fl (80.0-96.0); MONO # 1.1 10^3/uL (0.0-0.8); NEUTROPHILS # 5.9 10^3/uL (1.5-8.5); NEUTROPHILS % 54.4 % (36.0-66.0); PLATELET COUNT, AUTOMATED 313 10^3/uL (150-450); RED BLOOD COUNT 4.48 10^6/uL (4.00-5.40); WHITE BLOOD COUNT 10.8 10^3/uL (4.0-10.0)
[2023-04-22 12:39] LABS: HEMOGLOBIN A1c 5.4 % (4.0-6.0)
[2023-04-22 12:41] LABS: ERYTHROCYTE SEDIMENTATION RATE 23 mm/hr (0-30)
[2023-04-22 12:44] LABS: C REACTIVE PROTEIN QUANTITATIV < 0.40 MG/DL (<1.0)
[2023-04-22 12:46] LABS: ALBUMIN 3.8 G/DL (3.2-5.2); ALKALINE PHOSPHATASE 125 U/L (46-116); ALT/SGPT 30 U/L (7.0-40); AST/SGOT 20 U/L (<34); BILIRUBIN,TOTAL 0.8 MG/DL (0.3-1.2); BLOOD UREA NITROGEN 26 MG/DL (9-23); CALCIUM LEVEL 9.1 MG/DL (8.3-10.6); CARBON DIOXIDE LEVEL 29 MMOL/L (20-31); CHLORIDE LEVEL 112 MMOL/L (98-107); CHOLESTEROL LEVEL 150 MG/DL (<200); CHOLESTEROL RISK RATIO 3.37 (<5); CREATININE FOR GFR 0.75 MG/DL (0.55-1.30); GLOMERULAR FILTRATION RATE > 60.0 (>45); GLUCOSE, FASTING 80 MG/DL (74-106); HDL CHOLESTEROL 44.5 MG/DL (>40); LDL CHOLESTEROL 89.9 MG/DL (<100); MAGNESIUM LEVEL 2.2 MG/DL (1.8-2.4); NON-HDL-C 105.5 MG/DL; POTASSIUM SERUM 3.9 MMOL/L (3.5-5.1); RHEUMATOID FACTOR QUANT < 3.5 IU/ML (<14); SODIUM LEVEL 144 MMOL/L (136-145); TOTAL 25(OH) VITAMIN D 16.2 NG/ML (20.0-100.0); TOTAL PROTEIN 6.8 G/DL (5.7-8.2); TRIGLYCERIDES LEVEL 78 MG/DL (<150)
[2023-04-22 12:47] LABS: THYROID STIMULATING HORMONE 1.929 uIU/ML (0.55-4.78)
[2023-04-24 01:06] LABS: ANA (HEP2) Negative (.); CYCLIC CITRULLINATED PEPTIDE 6 units (0-19); SSA SJOGRENS A <0.2 AI (0.0-0.9); SSB SJOGRENS B <0.2 AI (0.0-0.9)
== END ==
LOC: M LAB REF 11:33
PROVIDERS: ATTEND Nurse Practitioner Family
DX: M79.641 Pain in right hand (principal); M79.642 Pain in left hand; E07.9 Disorder of thyroid, unspecified; E78.00 Pure hypercholesterolemia, unspecified

== ENCOUNTER → 2023-07-15 | Outpatient (CLI) | payer OTHER, MEDICAID ==
[~2023-07-15] MED LIST changes: +BETH10TA PO; -BETH10TA3 PO; +RIFA300C62 PO; -RIFA300C8 PO
== END ==
LOC: M PLAIMG 08:31
PROVIDERS: ATTEND Thoracic Surgery (Cardiothoracic Vascular Surgery)
DX: I71.21 Aneurysm of the ascending aorta, without rupture (principal)

== ENCOUNTER 2023-11-04 13:14 | Emergency (ER) | payer OTHER, MEDICAID ==
[~2023-11-04] VITALS: Ht 175.3 cm; Wt 84.5 kg
[~2023-11-04 13:14] MED LIST changes: +GABA-1490 PO; -GABA600T4 PO
[2023-11-04 15:48] LABS: ETHYL ALCOHOL (ETHANOL) < 0.003 % (0.000-0.010)
[2023-11-04 15:49] LABS: CPK CREATINE PHOSPHOKINASE 132 U/L (34-145)
[2023-11-04 15:50] LABS: ALBUMIN 3.9 G/DL (3.2-5.2); ALKALINE PHOSPHATASE 119 U/L (46-116); ALT/SGPT 30 U/L (7.0-40); AST/SGOT 24 U/L (<34); BILIRUBIN,DIRECT 0.5 MG/DL (<0.4); BILIRUBIN,TOTAL 1.3 MG/DL (0.3-1.2); BLOOD UREA NITROGEN 28 MG/DL (9-23); CALCIUM LEVEL 9.4 MG/DL (8.3-10.6); CARBON DIOXIDE LEVEL 26 MMOL/L (20-31); CHLORIDE LEVEL 113 MMOL/L (98-107); CREATININE FOR GFR 0.96 MG/DL (0.55-1.30); GLOMERULAR FILTRATION RATE > 60.0 (>45); GLUCOSE, FASTING 78 MG/DL (74-106); POTASSIUM SERUM 3.6 MMOL/L (3.5-5.1); SALICYLATE LEVEL < 3.0 MG/DL (<30); SODIUM LEVEL 142 MMOL/L (136-145); TOTAL PROTEIN 6.6 G/DL (5.7-8.2)
[2023-11-04 15:52] LABS: THYROID STIMULATING HORMONE 1.667 uIU/ML (0.55-4.78)
[2023-11-04 15:57] LABS: BASO # 0.1 10^3/uL (0.0-0.2); BASO % 0.8 % (0.0-1.0); EOS # 0.5 10^3/uL (0.0-0.5); EOS % 4.9 % (0.0-3.0); HEMATOCRIT 38.6 % (36.0-47.0); HEMOGLOBIN 13.3 g/dl (12.0-15.5); LYMPH # 3.6 10^3/uL (1.5-5.0); LYMPH % 32.4 % (24.0-44.0); MEAN CORPUSCULAR HEMOGLOBIN 31.6 pg (27.0-33.0); MEAN CORPUSCULAR HGB CONC 34.5 g/dl (32.0-36.5); MEAN CORPUSCULAR VOLUME 91.7 fl (80.0-96.0); MONO # 1.1 10^3/uL (0.0-0.8); MONO % 9.6 % (2.0-8.0); NEUTROPHILS # 5.8 10^3/uL (1.5-8.5); PLATELET COUNT, AUTOMATED 288 10^3/uL (150-450); RED BLOOD COUNT 4.21 10^6/uL (4.00-5.40); WHITE BLOOD COUNT 11.1 10^3/uL (4.0-10.0)
[2023-11-04 15:58] LABS: AMPHETAMINES LEVEL URINE NEGATIVE (NEGATIVE); BARBITURATES URINE NEGATIVE (NEGATIVE); BENZODIAZEPINES URINE NEGATIVE (NEGATIVE); COCAINE METABOLITE URINE NEGATIVE (NEGATIVE); METHADONE URINE NEGATIVE (NEGATIVE); OPIATES URINE NEGATIVE (NEGATIVE)
[2023-11-04 15:59] LABS: PHENCYCLIDINE URINE NEGATIVE (NEGATIVE)
[2023-11-04 16:01] LABS: CANNABINOIDS URINE POSITIVE (NEGATIVE)
[2023-11-04 21:58] VITALS: BP 117/62; TEMP 97.1; O2SAT 97
== END 2023-11-04 21:45 | disposition home or self-care (01) ==
LOC: EDBD 13:14 → M ED 13:14
DX: F12.10 Cannabis abuse, uncomplicated (principal); R44.3 Hallucinations, unspecified; R00.1 Bradycardia, unspecified; I44.4 Left anterior fascicular block; I10 Essential (primary) hypertension; F10.10 Alcohol abuse, uncomplicated; F17.200 Nicotine dependence, unspecified, uncomplicated; Z79.82 Long term (current) use of aspirin; Z79.02 Long term (current) use of antithrombotics/antiplatelets; Z79.899 Other long term (current) drug therapy

== ENCOUNTER 2023-12-30 22:13 | Emergency (ER) | payer OTHER, MEDICAID ==
[~2023-12-30] VITALS: Ht 177.8 cm; Wt 79.1 kg
[~2023-12-30 22:13] MED LIST changes: +GABA-1172; +GABA-1172 PO; -GABA-282; -GABA-282 PO
[2023-12-30 22:29] VITALS: TEMP 96.2
[2023-12-30] MEDS: ONDANSETRON 4MG 2ML VIAL IV ONE (22:30)
[2023-12-30 22:57] LABS: BASO # 0.1 10^3/uL (0.0-0.2); EOS # 0.6 10^3/uL (0.0-0.5); EOS % 5.1 % (0.0-3.0); LYMPH % 33.1 % (24.0-44.0); MEAN CORPUSCULAR HGB CONC 34.1 g/dl (32.0-36.5); MEAN CORPUSCULAR VOLUME 90.7 fl (80.0-96.0); MONO # 1.1 10^3/uL (0.0-0.8); MONO % 8.8 % (2.0-8.0); NEUTROPHILS # 6.3 10^3/uL (1.5-8.5); NEUTROPHILS % 51.6 % (36.0-66.0); PLATELET COUNT, AUTOMATED 280 10^3/uL (150-450); RED BLOOD COUNT 4.52 10^6/uL (4.00-5.40); WHITE BLOOD COUNT 12.2 10^3/uL (4.0-10.0)
[2023-12-30] MEDS: ACETAMINOPHEN 325 MG TAB PO ONE (23:10)
[2023-12-30 23:18] LABS: ETHYL ALCOHOL (ETHANOL) 0.006 % (0.000-0.010)
[2023-12-30 23:25] LABS: ALBUMIN 3.8 G/DL (3.2-5.2); ALKALINE PHOSPHATASE 126 U/L (35-104); ALT/SGPT 21 U/L (7.0-40); AST/SGOT 18 U/L (<34); BILIRUBIN,DIRECT 0.5 MG/DL (<0.4); BILIRUBIN,TOTAL 1.4 MG/DL (0.3-1.2); BLOOD UREA NITROGEN 23 MG/DL (9-23); CALCIUM LEVEL 10.7 MG/DL (8.3-10.6); CARBON DIOXIDE LEVEL 25 MMOL/L (20-31); CHLORIDE LEVEL 110 MMOL/L (98-107); CREATININE FOR GFR 0.83 MG/DL (0.55-1.30); GLOMERULAR FILTRATION RATE > 60.0 (>45); GLUCOSE, FASTING 147 MG/DL (74-106); POTASSIUM SERUM 3.1 MMOL/L (3.5-5.1); SODIUM LEVEL 144 MMOL/L (136-145); THYROID STIMULATING HORMONE 6.327 uIU/ML (0.55-4.78); TOTAL PROTEIN 6.7 G/DL (5.7-8.2)
[2023-12-30 23:41] LABS: AMPHETAMINES LEVEL URINE NEGATIVE (NEGATIVE); BARBITURATES URINE NEGATIVE (NEGATIVE); BENZODIAZEPINES URINE NEGATIVE (NEGATIVE); COCAINE METABOLITE URINE NEGATIVE (NEGATIVE); METHADONE URINE NEGATIVE (NEGATIVE)
[2023-12-30 23:42] LABS: OPIATES URINE NEGATIVE (NEGATIVE); PHENCYCLIDINE URINE NEGATIVE (NEGATIVE)
[2023-12-30 23:44] LABS: CANNABINOIDS URINE POSITIVE (NEGATIVE)
[2023-12-31] MEDS: POTASSIUM CHLORIDE 10MEQ SR TABLET PO ONE (00:10)
[2023-12-31] MEDS: KETOROLAC 30 MG/ML 1ML VIAL IV ONE (00:10)
[2023-12-31 00:55] VITALS: BP 127/63; O2SAT 98
[2023-12-31] MEDS ORDERED: KETO10TAB PO (23:21)
[2023-12-31] MEDS ORDERED: METH-1164 PO (23:21)
== END 2023-12-31 01:00 | disposition home or self-care (01) ==
LOC: M ED 22:13
DX: S09.90XA Unspecified injury of head, initial encounter (principal); W06.XXXA Fall from bed, initial encounter; R11.2 Nausea with vomiting, unspecified; F12.10 Cannabis abuse, uncomplicated; E87.6 Hypokalemia; I44.4 Left anterior fascicular block; I10 Essential (primary) hypertension; E78.5 Hyperlipidemia, unspecified; F41.9 Anxiety disorder, unspecified; F32.9 Major depressive disorder, single episode, unspecified; F17.200 Nicotine dependence, unspecified, uncomplicated; F10.10 Alcohol abuse, uncomplicated; Z79.899 Other long term (current) drug therapy; Z79.82 Long term (current) use of aspirin; Z79.02 Long term (current) use of antithrombotics/antiplatelets; Y92.009 Unspecified place in unspecified non-institutional (private) residence as the place of occurrence of the external cause; Y93.89 Activity, other specified; Y99.9 Unspecified external cause status

== ENCOUNTER 2023-12-31 20:31 | Emergency (ER) | payer OTHER, MEDICAID ==
[~2023-12-31] VITALS: Ht 177.8 cm; Wt 81.4 kg
[2023-12-31 20:45] VITALS: TEMP 99.4
[2023-12-31] MEDS: diazePAM 10MG/2ML SYRINGE IV ONE (21:56)
[2023-12-31] MEDS: KETOROLAC 30 MG/ML 1ML VIAL IV ONE (22:56)
[2023-12-31 23:20] VITALS: BP 155/81; O2SAT 96
[2023-12-31] MEDS ORDERED: KETO10TAB PO (23:21)
[2023-12-31] MEDS ORDERED: METH-1164 PO (23:21)
[2023-12-31] MEDS: methocarbamoL 500 MG TAB PO ONE (23:39)
== END 2023-12-31 23:41 | disposition home or self-care (01) ==
LOC: M ED 20:31
DX: S16.1XXA Strain of muscle, fascia and tendon at neck level, initial encounter (principal); W19.XXXA Unspecified fall, initial encounter; I10 Essential (primary) hypertension; F41.9 Anxiety disorder, unspecified; F32.9 Major depressive disorder, single episode, unspecified; S09.90XA Unspecified injury of head, initial encounter; W06.XXXA Fall from bed, initial encounter; R11.2 Nausea with vomiting, unspecified; E87.6 Hypokalemia; I44.4 Left anterior fascicular block; E78.5 Hyperlipidemia, unspecified; F10.10 Alcohol abuse, uncomplicated; F17.200 Nicotine dependence, unspecified, uncomplicated; F12.10 Cannabis abuse, uncomplicated; Y92.9 Unspecified place or not applicable; Y93.89 Activity, other specified; Y99.9 Unspecified external cause status; Z79.899 Other long term (current) drug therapy; Z79.82 Long term (current) use of aspirin; Z79.02 Long term (current) use of antithrombotics/antiplatelets
CPT/HCPCS: 70450; 72125; 80048; 80076; 80307; 82077; 82140; 84443; 85025; 93005; 93041; 94760; 96374; 96375; 99284; J1885; J2405; J3360

== ENCOUNTER → 2024-05-28 | Outpatient (CLI) | payer MEDICARE, MEDICAID ==
[~2024-05-28] MED LIST changes: +KETO10TAB PO
[2024-05-28 13:21] LABS: BLOOD UREA NITROGEN 35 MG/DL (9-23); CREATININE FOR GFR 0.71 MG/DL (0.55-1.30); GLOMERULAR FILTRATION RATE > 60.0 (>45)
== END ==
LOC: M LAB 11:05
PROVIDERS: ATTEND Neurological Surgery
DX: Z01.812 Encounter for preprocedural laboratory examination (principal); I67.1 Cerebral aneurysm, nonruptured

== ENCOUNTER → 2024-06-12 | Outpatient (CLI) | payer MEDICARE, MEDICAID | LOC: M SOG 07:50 | PROVIDERS: ATTEND Orthopaedic Surgery | DX: M54.50 Low back pain, unspecified (principal); S72.141D Displaced intertrochanteric fracture of right femur, subsequent encounter for closed fracture with routine healing; Z47.89 Encounter for other orthopedic aftercare ==

== ENCOUNTER → 2024-06-21 | Outpatient (CLI) | payer MEDICARE, MEDICAID | LOC: M SOG 07:56 | PROVIDERS: ATTEND Orthopaedic Surgery | DX: M54.50 Low back pain, unspecified (principal); S79.141D Salter-Harris Type IV physeal fracture of lower end of right femur, subsequent encounter for fracture with routine healing; Z47.89 Encounter for other orthopedic aftercare ==

== ENCOUNTER → 2024-09-12 | Outpatient (CLI) | payer MEDICARE, MEDICAID | LOC: M SOG 07:15 | PROVIDERS: ATTEND Orthopaedic Surgery | DX: M54.50 Low back pain, unspecified (principal); S72.141D Displaced intertrochanteric fracture of right femur, subsequent encounter for closed fracture with routine healing; Z47.89 Encounter for other orthopedic aftercare ==

== ENCOUNTER → 2024-12-05 | Outpatient (CLI) | payer MEDICARE, MEDICAID ==
[~2024-12-05] MED LIST changes: -IBUP-1022 PO; +IBUP600T42 PO
== END ==
LOC: M PLAIMG 12:32
PROVIDERS: ATTEND Nurse Practitioner
DX: I71.21 Aneurysm of the ascending aorta, without rupture (principal)